=== PATIENT | female | born 1945 | race Caucasian/White ===

== ENCOUNTER → 2019-04-13 13:53 | Outpatient (CLI) | payer MEDICARE, OTHER, SELFPAY ==
--- NOTE | 2019-04-13 | DI.NM.S_ITS ---
PROCEDURE: NM TONI PERF SPECT REST & STR Rest and exercise myocardial perfusion SPECT with gated imaging and ejection fraction RADIOPHARMACEUTICAL: 24.1 mCi Tc-99m sestamibi IV at rest and 25.1 mCi Tc-99m sestamibi IV at peak exercise. A one day-protocol was performed. INDICATIONS: atypical chest pain TECHNIQUE: Radiopharmaceutical was injected at peak stress test, and also at rest. SPECT images were obtained. SPECT myocardial perfusion images were displayed in short axis, horizontal long axis, and vertical long axis views. Gated images were reviewed using [employer] software. COMPARISON: None. CARDIAC STRESS: A standard Gopi treadmill exercise tolerance test was performed by the patient under the supervision of an attending staff. The patient exercised for 4 minutes and 26 seconds; functional aerobic impairment (RODRIGO) is +20% on active scale. Hemodynamic data: There is normal blood pressure and heart rate response to exercise stress. Patient achieved 91% of maximum predicted heart rate at peak exercise. Symptoms: Patient denied chest pain during exercise. EKG: No diagnostic EKG changes of ischemia; no ectopy. FINDINGS: Raw data: There is good myocardial labeling by radiotracer. No significant motion artifacts. Mihm-pv-rhtiw ratio is 0.27 (normal is less than 0.38 for sestamibi tracer, and less than 0.50 for thallium tracer). Left ventricle function: Gated images demonstrate normal left ventricle wall thickening. No segmental wall motion abnormality. No transient ischemic dilation; TID is 0.60 (normal less than 1.3). The left ventricle resting end-diastolic volume is 87 mL. Left ventricle stress ejection fraction is 92%; normal values are above 45%. Myocardial perfusion: There is normal distribution of activity in the left and right ventricular myocardium. No fixed or reversible perfusion defects. IMPRESSION: low risk, normal treadmill nuclear stress test. 1) No perfusion evidence of ischemia or infarction. 2) Normal left ventricular size, wall motion, and systolic function (EF post stress 92%). 3) No ECG evidence of ischemia. 4) No angina during the study. 5) Moderately reduced exercise tolerance (7.0 METs, RODRIGO +20%). Target heart rate achieved. 6) No prior stress test available for comparison. Dictated by: Christoph Stanley MD on 04/16/2019 at 16:21 Approved by: Christoph Stanley MD on 04/16/2019 at 16:24
--- NOTE | 2019-04-13 14:54 | PM.TREADMILL ---
Cardiac Stress Test Report Referral & Results Date Patient Seen: 04/13/19 Requesting provider: Bethany [place] Indication: Chest discomfort Rest ECG: Unremarkable Procedure Note: Today following both written and verbal informed consent the patient was exercised according to a standard Gopi protocol patient went for a total of for minutes 26 seconds achieving a maximum heart rate of 130 for maximum systolic blood pressure of 200. This is approximately 7.0 METS. Exercise was terminated at this point because of severe dyspnea out of proportion to her level of exertion. Patient was also given Cardiolite through a previously started Hep-Lock IV by the diagnostic imaging staff approximately 1 minute prior to the cessation of exercise. Patient actually got so dyspneic that we had to slow down the treadmill during the 2nd stage for the last 40 seconds or so we actually discontinued or stop the treadmill earlier than we would usually do because of her dyspnea There are no ST-T segment changes Normal heart rate and blood pressure response to exercise Difficult to obtain oxygen saturation but appeared to be normal Impression: Severe dyspnea without evidence of cardiac ischemia Please see perfusion imaging report as well Please note: Actual ECG tracings can be found in the PACS system.
== END ==
PROVIDERS: Family Provider Physician Assistant Medical; PCP Physician Assistant Medical; Visit Provider Physician Assistant
DX: R07.89 Other chest pain (principal)
CPT/HCPCS: 78452; 93016; 93017; 93018; A9502

== ENCOUNTER → 2021-03-23 11:18 | Outpatient (CLI) | payer MEDICARE, OTHER, SELFPAY ==
[2021-03-23 14:22] LABS: COVID19 -Nasal RAPID Negative (Negative)
== END ==
PROVIDERS: Family Provider Physician Assistant Medical; PCP Physician Assistant Medical; Visit Provider Nurse Practitioner Family
DX: Z20.822 Contact with and (suspected) exposure to COVID-19 (principal); Z01.812 Encounter for preprocedural laboratory examination
CPT/HCPCS: 87635; C9803

== ENCOUNTER → 2021-03-24 10:19 | Outpatient (CLI) | payer MEDICARE, OTHER, SELFPAY ==
--- NOTE | 2021-03-25 19:45 | DI.NM.S_ITS ---
DATE OF SERVICE: 03/24/2021 PROCEDURE PERFORMED: Pharmacologic vasodilator stress and rest myocardial perfusion imaging study with gating to assess ejection fraction and regional wall motion. ORDERING PROVIDER: Dr. Abraham Esteban. INDICATIONS: The patient is a 75-year-old diabetic female with progressive exertional dyspnea and an abnormal ECG concerning for previous anteroseptal DE. PHARMACOLOGIC STRESS: Per protocol, 0.4 mg of regadenoson was infused, augmented with walking at a low-level on the treadmill. With this, she had a normal hemodynamic response. She had mild nausea and dyspnea but no chest discomfort. Her resting ECG shows sinus rhythm with poor R-wave progression but relatively normal ST-segment. With stress, there were no significant ST-segment shifts or arrhythmias. Per protocol, 25.7 millicuries of technetium-99m Myoview was injected and she was imaged 10 minutes later using a gated SPECT acquisition protocol. The following day, she returned and was reinjected with an additional 24.4 millicuries of technetium-99m Myoview and was imaged 20 minutes later, again using a gated SPECT acquisition protocol. FINDINGS: 1. Raw data: There is marginal image quality, particularly on the resting images, with moderate breast attenuation artifact that clearly traverses the anterior portion of the left ventricle. The lung/heart ratio is moderately elevated at 0.48, which can be a sign of pulmonary congestion. TID ratio is normal at 1.02. 2. Quantitated gated SPECT: The gated SPECT images are of quite poor quality, but the post-stress images suggest probable normal left ventricular systolic function with a calculated ejection fraction is 74% without any obvious focal wall motion abnormality and specifically the anterior wall grossly appears to have normal contractility, although is somewhat nonspecific because of the poor image quality. The resting images could not be adequately gated because of poor image quality. Post stress end-diastolic volume is 114 ml. 3. Myocardial perfusion imaging: Post-stress supine images show a fairly normal perfusion pattern with a mild perfusion defect in the mid anterior wall, but sparing the apex in a pattern that would be consistent with breast attenuation artifact, supported by its resolution on the prone images. The resting images show a similar perfusion pattern as to the post-stress images, although with the perfusion defect appearing to be located more medially, suggesting differential breast positioning. IMPRESSION: 1. Probable normal myocardial perfusion study. 2. Mild, predominantly fixed mid anterior defect that resolves on prone imaging. Given the raw data images and the resolution on the prone images, this most likely reflects breast attenuation artifact. While there is slight reversibility of the defect laterally, this most likely is due to differential breast positioning. There is no compelling evidence for myocardial ischemia or previous myocardial infarction. 3. Probable normal left ventricular systolic function and specifically probable normal anterior wall motion, although image quality is quite poor. 4. No angina or ECG evidence of ischemia with pharmacologic vasodilator stress. 5. Compared to the previous myocardial perfusion study of 04/13/2019, breast attenuation artifact was apparent on the previous exam as well, although is more notable on today's exam, but overall image quality is poorer on today's study. The previous ejection fraction was estimated at 92% and the lung/heart ratio was normal at 0.27, suggesting possible interval development of pulmonary congestion, but clinical correlation is recommended. Robbins Merline - Shaila/isael doc#: [id number]/job#: [id number] dd: 03/25/2021 16:59:00 dt: 03/25/2021 18:42:00 DICTATING MD/COPIES TO: Noel Maza MD; Abraham Esteban MD COPIES MNE: SUDHAKAR;
== END ==
PROVIDERS: Family Provider Physician Assistant Medical; PCP Physician Assistant Medical; Referring Provider Internal Medicine Cardiovascular Disease; Visit Provider Internal Medicine Cardiovascular Disease
DX: R06.02 Shortness of breath (principal); R06.09 Other forms of dyspnea; R94.31 Abnormal electrocardiogram [ECG] [EKG]; I12.9 Hypertensive chronic kidney disease with stage 1 through stage 4 chronic kidney disease, or unspecified chronic kidney disease; E11.22 Type 2 diabetes mellitus with diabetic chronic kidney disease; E11.21 Type 2 diabetes mellitus with diabetic nephropathy; N18.32 Chronic kidney disease, stage 3b; Z79.4 Long term (current) use of insulin
CPT/HCPCS: 78452; 93017; A9502; J2785

== ENCOUNTER 2022-04-28 15:25 | Inpatient (IN) | payer MEDICARE, OTHER, SELFPAY ==
[2022-04-28] VITALS (22 sets, daily range): BP systolic 169–215; BP diastolic 74–85; PULSE 62–72; RESP 18–45; TEMP 36.1–36.8; O2SAT 87–95; BMI 37.5
--- NOTE | 2022-04-28 15:45 | DI.RAD.S_ITS ---
PROCEDURE: XR CHEST 2V INDICATIONS: SOB TECHNIQUE: 2 views of the chest were acquired. COMPARISON: None. FINDINGS: Surgical changes and devices: None. Lungs and pleura: There is pulmonary vascular congestion. Mild pulmonary edema is also likely present. Blunting of bilateral costophrenic angles are noted suggestive of trace bilateral pleural effusion. No gross pneumothorax.. Mediastinum: Mediastinal contours are normal. Heart size is enlarged. Bones and chest wall: No suspicious bony abnormalities. Soft tissues appear unremarkable. IMPRESSION: Finding is suggestive of CHF with pulmonary vascular congestion and mild pulmonary edema. Trace bilateral pleural effusion. No definite focal infiltrate. No pneumothorax. Dictated by: Alfa Orlando M.D. on 04/28/2022 at 16:42 Approved by: Alfa Orlando M.D. on 04/28/2022 at 16:42
--- NOTE | 2022-04-28 15:45 | ED.SOB ---
HPI - SOB/Dyspnea <Chadwick Eaton, DO - Last Filed: 05/02/22 02:27> General Chief Complaint: Shortness of Breath/Dyspnea Stated Complaint: sob/tired x2 weeks Time Seen by Provider: 04/28/22 15:33 Source: patient Mode of arrival: Wheelchair History of Present Illness HPI Narrative: 76-year-old female nonsmoker with extensive medical history including diabetes, chronic kidney disease, hypertension presents at the request of her primary care provider for evaluation of a proximally 2 weeks of gradually worsening shortness of breath and fatigue. She denies any medication or dietary change. She states that she notes that she is been increasingly short of breath with exertion and has been developing some painless swelling in her bilateral lower extremities though overall she has been losing weight. She denies runny nose, sore throat or cough. She is had no fever but admits to the occasional chills. She has no nausea, vomiting or diarrhea. She denies any dysuria, frequency or urgency. She is had no recent travel, history of blood clot or known cancer Related Data Home Medications Medication Instructions Recorded Confirmed amlodipine 5 mg tablet 5 mg PO DAILY 04/28/22 04/28/22 carvedilol 12.5 mg tablet 12.5 mg PO BID 04/28/22 04/28/22 fluticasone propionate 50 50 mcg intranasal BID 04/28/22 04/28/22 mcg/actuation nasal spray,suspension hydralazine 25 mg tablet 50 mg PO TID 04/28/22 04/28/22 insulin aspart U-100 100 unit/mL See Rx Instructions .Route .COMPLEX 04/28/22 04/28/22 (3 mL) subcutaneous pen (Novolog Flexpen U-100 Insulin aspart) insulin glargine 100 50 unit SUBCUT DAILY 04/28/22 04/28/22 unit-lixisenatide 33 mcg/mL subcutaneous pen (Soliqua 100/33) levothyroxine 75 mcg tablet 75 mcg PO DAILY 04/28/22 04/28/22 losartan 25 mg tablet 25 mg PO DAILY 04/28/22 04/28/22 rosuvastatin 5 mg tablet 5 mg PO QPM 04/28/22 04/28/22 torsemide 20 mg tablet See Rx Instructions .Route .COMPLEX 04/28/22 04/28/22 Allergies Allergy/AdvReac Type Severity Reaction Status Date / Time ciprofloxacin [From Cipro] Allergy Verified 04/28/22 15:39 codeine Allergy Verified 04/28/22 15:39 metformin [From Glucophage] Allergy Verified 04/28/22 15:39 amoxicillin [From Augmentin] AdvReac Diarrhea Verified 04/28/22 15:39 clavulanic acid AdvReac Diarrhea Verified 04/28/22 15:39 [From Augmentin] Review of Systems <Chadwick Eaton DO - Last Filed: 05/02/22 02:27> Review of Systems Narrative: GENERAL: See HPI HEENT: See HPI RESPIRATORY: See HPI CARDIOVASCULAR: See HPI GASTROINTESTINAL: Denies nausea, vomiting, abdominal pain, diarrhea, constipation, melena. : Denies dysuria, frequency, incontinence, hematuria, urinary retention. MUSCULOSKELETAL: denies weakness, joint pain, or bony pain SKIN: Denies rash, skin lesions, or other NEUROLOGIC: Denies weakness, headache, numbness, change in speech, confusion, seizures, incoordination. PSYCHIATRIC: No concerning psychosocial issues. 12 point review of systems is negative except for those stated above Patient History <Chadwick Eaton DO - Last Filed: 05/02/22 02:27> Medical History CKD (chronic kidney disease) stage 4, GFR 15-29 ml/min Diabetes type 2, controlled Essential hypertension Surgical History Hx of hysterectomy Hx of tonsillectomy Family History Mother Congestive heart failure Myocardial infarct Father Congestive heart failure Cardiac arrest Social History household members: none Smoking Status: Never smoker alcohol intake: never Smoking Status: Never smoker Substance Use Type: does not use Exam <Chadwick Eaton DO - Last Filed: 05/02/22 02:27> Narrative Exam Narrative: GENERAL: [76] year old patient appears stated age. Well-developed patient, in mild distress. HEAD: Atraumatic. Normocephalic. EYES: Pupils equal round and reactive. Extraocular motions intact. No scleral icterus. No injection or drainage. ENT: Nose without bleeding, purulent drainage. Throat without erythema, tonsillar hypertrophy or exudate. Airway patent. NECK: Trachea midline. Non tender CARDIOVASCULAR: Regular rate and rhythm without murmurs, gallops, or rubs. RESPIRATORY: Faint crackles bilateral bases, no significant increased work of breathing, tachypnea, hypoxemia, wheezing or rhonchi GASTROINTESTINAL: Abdomen soft, non-tender, nondistended. EXTREMITIES: 1+ pitting edema bilateral lower extremities BACK: Nontender without deformity or crepitance. No flank tenderness. NEURO: AOx3. SKIN: No rash or erythema of visible areas Initial Vital Signs Initial Vital Signs: Vital Signs Temperature 98.2 F 04/28/22 15:39 Pulse Rate 66 04/28/22 15:39 Respiratory Rate 24 04/28/22 15:39 Blood Pressure 172/74 H 04/28/22 15:39 Pulse Oximetry 95 04/28/22 15:39 Oxygen Delivery Method 04/28/22 15:39 <Leni Alston DO - Last Filed: 04/29/22 03:21> Initial Vital Signs Initial Vital Signs: Vital Signs Temperature 98.2 F 04/28/22 15:39 Pulse Rate 66 04/28/22 15:39 Respiratory Rate 24 04/28/22 15:39 Blood Pressure 172/74 H 04/28/22 15:39 Pulse Oximetry 95 04/28/22 15:39 Oxygen Delivery Method 04/28/22 15:39 Course <Chadwick Eaton DO - Last Filed: 05/02/22 02:27> Orders Ordered: Acetaminophen (Acetaminophen 325 Mg Tablet) 650 mg PO Q6H PRN PRN Reason: Fever/Mild Pain (1-3) Aspirin (Aspirin Ec 81 Mg Tablet) 81 mg PO DAILY [facility] Last Admin: 05/01/22 08:00 Dose: 81 mg Documented By: Admin: 04/30/22 09:04 Dose: 81 mg Documented By: Admin: 04/29/22 08:17 Dose: Not Given Documented By: GINA Atorvastatin Calcium (Atorvastatin 20 Mg Tablet) 10 mg PO BEDTIME [facility] Last Admin: 05/01/22 20:12 Dose: 10 mg Documented By: Admin: 04/30/22 20:28 Dose: 10 mg Documented By: Admin: 04/29/22 21:27 Dose: 10 mg Documented By: YOBANI Carvedilol (Carvedilol 12.5 Mg Tablet) 12.5 mg PO BID [facility] Last Admin: 05/01/22 20:18 Dose: 12.5 mg Documented By: Admin: 05/01/22 08:08 Dose: 12.5 mg Documented By: Admin: 04/30/22 20:34 Dose: 12.5 mg Documented By: Admin: 04/30/22 09:04 Dose: 12.5 mg Documented By: Admin: 04/29/22 21:27 Dose: 12.5 mg Documented By: Admin: 04/29/22 08:22 Dose: 12.5 mg Documented By: Admin: 04/28/22 23:46 Dose: 12.5 mg Documented By: NILE Dextrose (Dextrose 50 % In Water 25 Gm/50 Ml Syringe) 25 gm IV PRN PRN PRN Reason: Hypoglycemia Furosemide (Furosemide 40 Mg/4 Ml Vial) 40 mg IV 0800,1700 [facility] Last Admin: 05/01/22 16:22 Dose: 40 mg Documented By: Admin: 05/01/22 08:09 Dose: 40 mg Documented By: Admin: 04/30/22 16:42 Dose: 40 mg Documented By: Admin: 04/30/22 09:05 Dose: 40 mg Documented By: Admin: 04/29/22 17:04 Dose: 40 mg Documented By: GINA Heparin Sodium (Porcine) (Heparin 5,000 Unit/Ml Vial) 5,000 unit SUBCUT BID [facility] Last Admin: 05/01/22 20:12 Dose: 5,000 unit Documented By: Admin: 05/01/22 08:09 Dose: 5,000 unit Documented By: Admin: 04/30/22 20:28 Dose: 5,000 unit Documented By: Admin: 04/30/22 09:04 Dose: 5,000 unit Documented By: Admin: 04/29/22 21:27 Dose: 5,000 unit Documented By: Admin: 04/29/22 08:23 Dose: 5,000 unit Documented By: Admin: 04/28/22 22:23 Dose: 5,000 unit Documented By: NILE Insulin Glargine (Insulin Glargine 100 Unit/Ml 3ml Pen) 50 unit SUBCUT DAILY [facility] Last Admin: 05/01/22 08:00 Dose: 45 unit Documented By: VALENTIN Co-signed By: ADAM Admin: 04/30/22 09:03 Dose: 50 unit Documented By: GINA Co-signed By: Admin: 04/29/22 08:42 Dose: 50 unit Documented By: GINA Co-signed By: Insulin Human Lispro (Insulin Lispro 100 Unit/Ml 3ml Vial) 0 unit SUBCUT ACHS [facility]; Protocol Last Admin: 05/01/22 20:22 Dose: Not Given Documented By: Admin: 05/01/22 17:16 Dose: 1 unit Documented By: VALENTIN Co-signed By: ADAM Admin: 05/01/22 11:46 Dose: Not Given Documented By: Admin: 05/01/22 08:09 Dose: Not Given Documented By: Admin: 04/30/22 20:34 Dose: Not Given Documented By: Admin: 04/30/22 16:49 Dose: Not Given Documented By: Admin: 04/30/22 12:15 Dose: Not Given Documented By: Admin: 04/30/22 08:55 Dose: Not Given Documented By: Admin: 04/29/22 21:26 Dose: Not Given Documented By: Admin: 04/29/22 17:18 Dose: 1 unit Documented By: GINA Co-signed By: Admin: 04/29/22 12:13 Dose: Not Given Documented By: Admin: 04/29/22 07:44 Dose: Not Given Documented By: GINA Levothyroxine Sodium (Levothyroxine 75 Mcg Tablet) 75 mcg PO QACBSUPRIYA [facility] Last Admin: 05/01/22 05:20 Dose: 75 mcg Documented By: Admin: 04/30/22 06:09 Dose: 75 mcg Documented By: Admin: 04/29/22 07:39 Dose: 75 mcg Documented By: GINA Losartan Potassium (Losartan 25 Mg Tablet) 25 mg PO DAILY [facility] Last Admin: 05/01/22 08:00 Dose: 25 mg Documented By: Admin: 04/30/22 09:04 Dose: 25 mg Documented By: Admin: 04/29/22 08:23 Dose: 25 mg Documented By: GINA Naloxone HCl (Naloxone 0.4 Mg/Ml Vial) 0.2 mg IV Q2MIN PRN PRN Reason: Opiate Reversal Ondansetron HCl (Ondansetron 4 Mg/2 Ml Inj) 4 mg IV Q6HR PRN PRN Reason: Nausea And Vomiting Last Admin: 05/01/22 20:12 Dose: 4 mg Documented By: Admin: 05/01/22 10:49 Dose: 4 mg Documented By: VALENTIN Sodium Chloride (Sodium Chloride 0.9% Flush) 10 ml IV PRN PRN PRN Reason: Flush Sodium Chloride (Sodium Chloride 0.9% Flush) 10 ml IV BID [facility] Last Admin: 05/01/22 20:35 Dose: 10 ml Documented By: Admin: 05/01/22 08:09 Dose: 10 ml Documented By: Admin: 04/30/22 20:34 Dose: 10 ml Documented By: Admin: 04/30/22 09:05 Dose: 10 ml Documented By: Admin: 04/29/22 21:28 Dose: 10 ml Documented By: YOBANI Vancomycin HCl (Vancomycin 125 Mg Capsule) 125 mg PO Q6H [facility] Stop: 05/09/22 10:31 Last Admin: 05/01/22 22:29 Dose: 125 mg Documented By: Admin: 05/01/22 16:23 Dose: 125 mg Documented By: Admin: 05/01/22 09:31 Dose: 125 mg Documented By: Admin: 05/01/22 05:20 Dose: 125 mg Documented By: Admin: 04/30/22 22:03 Dose: 125 mg Documented By: Admin: 04/30/22 15:46 Dose: 125 mg Documented By: Admin: 04/30/22 09:59 Dose: 125 mg Documented By: Admin: 04/30/22 04:38 Dose: 125 mg Documented By: Admin: 04/29/22 22:25 Dose: 125 mg Documented By: Admin: 04/29/22 17:03 Dose: 125 mg Documented By: GINA Discontinued Medications Albuterol/Ipratropium (Albuterol/Ipratropium 3 Ml Ampul) 3 ml INH NOW ONE Stop: 04/28/22 18:17 Last Admin: 04/28/22 18:35 Dose: 3 ml Documented By: SHOAIB Amlodipine Besylate (Amlodipine 5 Mg Tablet) 5 mg PO DAILY [facility] Last Admin: 04/29/22 08:22 Dose: 5 mg Documented By: GINA Furosemide (Furosemide 40 Mg/4 Ml Vial) 40 mg IV NOW ONE Stop: 04/28/22 18:17 Last Admin: 04/28/22 18:29 Dose: 40 mg Documented By: RONNIE Furosemide (Furosemide 40 Mg/4 Ml Vial) 40 mg IV NOW ONE Stop: 04/29/22 13:00 Last Admin: 04/29/22 13:18 Dose: 40 mg Documented By: GINA Vital Signs Vital signs: Vital Signs - 8 hr 04/28/22 19:56 04/28/22 19:30 04/28/22 19:30 Pulse Rate 70 65 Respiratory Rate 28 H 32 H Blood Pressure 215/83 H Pulse Oximetry 87 L 92 Oxygen Delivery Method 04/28/22 19:39 04/28/22 19:39 04/28/22 20:00 Pulse Rate 65 65 Respiratory Rate 28 H 18 Blood Pressure 196/79 H Pulse Oximetry 94 95 Oxygen Delivery Method 04/28/22 20:02 04/28/22 20:02 04/28/22 20:30 Pulse Rate 65 72 Respiratory Rate 23 36 H Blood Pressure 177/80 H Pulse Oximetry 95 88 L Oxygen Delivery Method Room Air 04/28/22 20:31 04/28/22 20:31 Pulse Rate 67 Respiratory Rate 31 H Blood Pressure 175/80 H Pulse Oximetry 90 L Oxygen Delivery Method <Leni Alston, - Last Filed: 04/29/22 03:21> Orders Ordered: Acetaminophen (Acetaminophen 325 Mg Tablet) 650 mg PO Q6H PRN PRN Reason: Fever/Mild Pain (1-3) Aspirin (Aspirin Ec 81 Mg Tablet) 81 mg PO DAILY [facility] Last Admin: 05/01/22 08:00 Dose: 81 mg Documented By: Admin: 04/30/22 09:04 Dose: 81 mg Documented By: Admin: 04/29/22 08:17 Dose: Not Given Documented By: GINA Atorvastatin Calcium (Atorvastatin 20 Mg Tablet) 10 mg PO BEDTIME [facility] Last Admin: 05/01/22 20:12 Dose: 10 mg Documented By: Admin: 04/30/22 20:28 Dose: 10 mg Documented By: Admin: 04/29/22 21:27 Dose: 10 mg Documented By: YOBANI Carvedilol (Carvedilol 12.5 Mg Tablet) 12.5 mg PO BID [facility] Last Admin: 05/01/22 20:18 Dose: 12.5 mg Documented By: Admin: 05/01/22 08:08 Dose: 12.5 mg Documented By: Admin: 04/30/22 20:34 Dose: 12.5 mg Documented By: Admin: 04/30/22 09:04 Dose: 12.5 mg Documented By: Admin: 04/29/22 21:27 Dose: 12.5 mg Documented By: Admin: 04/29/22 08:22 Dose: 12.5 mg Documented By: Admin: 04/28/22 23:46 Dose: 12.5 mg Documented By: NILE Dextrose (Dextrose 50 % In Water 25 Gm/50 Ml Syringe) 25 gm IV PRN PRN PRN Reason: Hypoglycemia Furosemide (Furosemide 40 Mg/4 Ml Vial) 40 mg IV 0800,1700 [facility] Last Admin: 05/01/22 16:22 Dose: 40 mg Documented By: Admin: 05/01/22 08:09 Dose: 40 mg Documented By: Admin: 04/30/22 16:42 Dose: 40 mg Documented By: Admin: 04/30/22 09:05 Dose: 40 mg Documented By: Admin: 04/29/22 17:04 Dose: 40 mg Documented By: GINA Heparin Sodium (Porcine) (Heparin 5,000 Unit/Ml Vial) 5,000 unit SUBCUT BID [facility] Last Admin: 05/01/22 20:12 Dose: 5,000 unit Documented By: Admin: 05/01/22 08:09 Dose: 5,000 unit Documented By: Admin: 04/30/22 20:28 Dose: 5,000 unit Documented By: Admin: 04/30/22 09:04 Dose: 5,000 unit Documented By: Admin: 04/29/22 21:27 Dose: 5,000 unit Documented By: Admin: 04/29/22 08:23 Dose: 5,000 unit Documented By: Admin: 04/28/22 22:23 Dose: 5,000 unit Documented By: NILE Insulin Glargine (Insulin Glargine 100 Unit/Ml 3ml Pen) 50 unit SUBCUT DAILY [facility] Last Admin: 05/01/22 08:00 Dose: 45 unit Documented By: VALENTIN Co-signed By: ADAM Admin: 04/30/22 09:03 Dose: 50 unit Documented By: GINA Co-signed By: Admin: 04/29/22 08:42 Dose: 50 unit Documented By: GINA Co-signed By: Insulin Human Lispro (Insulin Lispro 100 Unit/Ml 3ml Vial) 0 unit SUBCUT [facility]; Protocol Last Admin: 05/01/22 20:22 Dose: Not Given Documented By: Admin: 05/01/22 17:16 Dose: 1 unit Documented By: VALENTIN Co-signed By: ADAM Admin: 05/01/22 11:46 Dose: Not Given Documented By: Admin: 05/01/22 08:09 Dose: Not Given Documented By: Admin: 04/30/22 20:34 Dose: Not Given Documented By: Admin: 04/30/22 16:49 Dose: Not Given Documented By: Admin: 04/30/22 12:15 Dose: Not Given Documented By: Admin: 04/30/22 08:55 Dose: Not Given Documented By: Admin: 04/29/22 21:26 Dose: Not Given Documented By: Admin: 04/29/22 17:18 Dose: 1 unit Documented By: GINA Co-signed By: Admin: 04/29/22 12:13 Dose: Not Given Documented By: Admin: 04/29/22 07:44 Dose: Not Given Documented By: GINA Levothyroxine Sodium (Levothy[facility]ine 75 Mcg Tablet) [facility] Last Admin: 05/01/22 05:20 Dose: 75 mcg Documented By: Admin: 04/30/22 06:09 Dose: 75 mcg Documented By: Admin: 04/29/22 07:39 Dose: 75 mcg Documented By: GINA Losartan Potassium (Losartan 25 Mg Tablet) 25 mg PO DAILY [facility] Last Admin: 05/01/22 08:00 Dose: 25 mg Documented By: Admin: 04/30/22 09:04 Dose: 25 mg Documented By: Admin: 04/29/22 08:23 Dose: 25 mg Documented By: GINA Naloxone HCl (Naloxone 0.4 Mg/Ml Vial) 0.2 mg IV Q2MIN PRN PRN Reason: Opiate Reversal Ondansetron HCl (Ondansetron 4 Mg/2 Ml Inj) 4 mg IV Q6HR PRN PRN Reason: Nausea And Vomiting Last Admin: 05/01/22 20:12 Dose: 4 mg Documented By: Admin: 05/01/22 10:49 Dose: 4 mg Documented By: VALENTIN Sodium Chloride (Sodium Chloride 0.9% Flush) 10 ml IV PRN PRN PRN Reason: Flush Sodium Chloride (Sodium Chloride 0.9% Flush) 10 ml IV BID [facility] Last Admin: 05/01/22 20:35 Dose: 10 ml Documented By: Admin: 05/01/22 08:09 Dose: 10 ml Documented By: Admin: 04/30/22 20:34 Dose: 10 ml Documented By: Admin: 04/30/22 09:05 Dose: 10 ml Documented By: Admin: 04/29/22 21:28 Dose: 10 ml Documented By: YOBANI Vancomycin HCl (Vancomycin 125 Mg Capsule) 125 mg PO Q6H [facility] Stop: 05/09/22 10:31 Last Admin: 05/01/22 22:29 Dose: 125 mg Documented By: Admin: 05/01/22 16:23 Dose: 125 mg Documented By: Admin: 05/01/22 09:31 Dose: 125 mg Documented By: Admin: 05/01/22 05:20 Dose: 125 mg Documented By: Admin: 04/30/22 22:03 Dose: 125 mg Documented By: Admin: 04/30/22 15:46 Dose: 125 mg Documented By: Admin: 04/30/22 09:59 Dose: 125 mg Documented By: Admin: 04/30/22 04:38 Dose: 125 mg Documented By: Admin: 04/29/22 22:25 Dose: 125 mg Documented By: Admin: 04/29/22 17:03 Dose: 125 mg Documented By: GINA Discontinued Medications Albuterol/Ipratropium (Albuterol/Ipratropium 3 Ml Ampul) 3 ml INH NOW ONE Stop: 04/28/22 18:17 Last Admin: 04/28/22 18:35 Dose: 3 ml Documented By: SHOAIB Amlodipine Besylate (Amlodipine 5 Mg Tablet) 5 mg PO DAILY [facility] Last Admin: 04/29/22 08:22 Dose: 5 mg Documented By: GINA Furosemide (Furosemide 40 Mg/4 Ml Vial) 40 mg IV NOW ONE Stop: 04/28/22 18:17 Last Admin: 04/28/22 18:29 Dose: 40 mg Documented By: RONNIE Furosemide (Furosemide 40 Mg/4 Ml Vial) 40 mg IV NOW ONE Stop: 04/29/22 13:00 Last Admin: 04/29/22 13:18 Dose: 40 mg Documented By: GINA Vital Signs Vital signs: Vital Signs - 8 hr 04/28/22 19:56 04/28/22 19:30 04/28/22 19:30 Pulse Rate 70 65 Respiratory Rate 28 H 32 H Blood Pressure 215/83 H Pulse Oximetry 87 L 92 Oxygen Delivery Method 04/28/22 19:39 04/28/22 19:39 04/28/22 20:00 Pulse Rate 65 65 Respiratory Rate 28 H 18 Blood Pressure 196/79 H Pulse Oximetry 94 95 Oxygen Delivery Method 04/28/22 20:02 04/28/22 20:02 04/28/22 20:30 Pulse Rate 65 72 Respiratory Rate 23 36 H Blood Pressure 177/80 H Pulse Oximetry 95 88 L Oxygen Delivery Method Room Air 04/28/22 20:31 04/28/22 20:31 Pulse Rate 67 Respiratory Rate 31 H Blood Pressure 175/80 H Pulse Oximetry 90 L Oxygen Delivery Method MDM - SOB/Dyspnea <Chadwick Eaton, - Last Filed: 05/02/22 02:27> Lab Data Result diagrams: 05/01/22 06:52 05/01/22 06:52 Labs: Lab Results 04/28/22 04/28/22 04/28/22 Range/Units 15:43 16:12 16:12 WBC 11.0 (4.5-11.0) X10^3/uL RBC 3.50 L (4.0-5.2) X10^6/uL Hgb 9.9 L (12.0-16.0) g/dL Hct 30.4 L (36-46) % MCV 86.8 (80-100) fL MCH 28.2 (26-34) PG MCHC 32.5 (30-36) % RDW 15.0 H (11.6-14.8) % Plt Count 249 (150-400) X10^3/uL Neut % (Auto) 73.8 (50-75) % Lymph % (Auto) 14.2 L (25-40) % Wells % (Auto) 7.7 (3-14) % Eos % (Auto) 3.7 (2-4) % Baso % (Auto) 0.6 (0-2) % Neut # (Auto) 8100 H (5475-0781) /uL Lymph # (Auto) 1600 (5248-2854) /uL Wells # (Auto) 800 (0-900) /uL Eos # (Auto) 400 (0-450) /uL Baso # (Auto) 100 (0-100) /uL PT (10.1-12.7) SECONDS INR (0.9-1.3) APTT (26-36) SECONDS D-Dimer (<500) ng/ml Sodium 141 (137-145) mmol/L Potassium 4.7 (3.4-5.1) mmol/L Chloride 108 H (98-107) mmol/L Carbon Dioxide 19 L (22-32) mmol/L BUN 68 H (7-17) mg/dL Creatinine 2.58 H (0.52-1.04) mg/dL Estimated GFR 19 L (>60) mL/min BUN/Creatinine Ratio 26.4 H (6-22) Glucose 127 H (80-110) mg/dL Hemoglobin A1c (4.0-6.0) % Lactate (0.7-2.1) mmol/L Calcium 8.7 (8.4-10.2) mg/dL Magnesium 1.7 (1.6-2.3) mg/dL Total Bilirubin 0.2 (0.2-1.3) mg/dL AST 19 (14-36) IU/L ALT 16 (<35) IU/L Alkaline Phosphatase 88 (38-126) U/L Total Creatine Kinase (30-135) U/L CK-MB (CK-2) CK-MB (CK-2) Rel Index Troponin I (0.01-0.034) ng/mL C-Reactive Protein < 0.5 (<1.0) mg/dL NT-Pro-B Natriuret Pep 1790 H (<450) pg/mL Total Protein 6.4 (6.3-8.2) g/dL Albumin 3.6 (3.5-5.0) g/dL Globulin 2.8 (1.7-4.1) g/dL Albumin/Globulin Ratio 1.3 (1.0-2.8) TSH (0.47-4.68) uIU/mL Urine RBC (0-5/HPF) Urine WBC (0-5/HPF) Ur Squamous Epith Cells (0-5/HPF) Urine Bacteria (None) Ur Culture Indicated? A. baumannii (PCR) (Not Detect) Catie albicans (PCR) (Not Detect) C. glabrata (PCR) (Not Detect) C. krusei (PCR) (Not Detect) C. parapsilosis (PCR) (Not Detect) C. tropicalis (PCR) (Not Detect) SARS-CoV-2 (PCR) Negative (Negative) Enterobacteriac sp PCR (Not Detect) E. cloacae complex PCR (Not Detect) Enterococcus sp PCR (Not Detect) E. coli (PCR) (Not Detect) H. influenzae (PCR) (Not Detect) Influenza A (RT-PCR) Flu a negative (NEGATIVE) Influenza B (RT-PCR) Flu b negative (NEGATIVE) Klebsiella oxytoca PCR (Not Detect) Klebsiella pneumoniae (Not Detect) List. monocytogenes PCR (Not Detect) N. meningitidis (PCR) (Not Detect) Proteus species (PCR) (Not Detect) RSV (PCR) Negative (Negative) Serratia marcescens PCR (Not Detect) Staphylococcus sp PCR (Not Detect) Staph aureus (PCR) (Not Detect) mecA-Methicil Res Gene (Not Detect) Streptococcus sp PCR (Not Detect) Group A Strep (PCR) (Not Detect) Strep agalactiae (PCR) (Not Detect) Strep pneumoniae (PCR) (Not Detect) P. aeruginosa (PCR) (Not Detect) Soniya/B-Vanco Res Genes KPC-Carbap Res Gene PCR 04/28/22 04/28/22 04/28/22 Range/Units 16:12 16:12 16:12 WBC (4.5-11.0) X10^3/uL RBC (4.0-5.2) X10^6/uL Hgb (12.0-16.0) g/dL Hct (36-46) % MCV (80-100) fL MCH (26-34) PG MCHC (30-36) % RDW (11.6-14.8) % Plt Count (150-400) X10^3/uL Neut % (Auto) (50-75) % Lymph % (Auto) (25-40) % Wells % (Auto) (3-14) % Eos % (Auto) (2-4) % Baso % (Auto) (0-2) % Neut # (Auto) (7574-4259) /uL Lymph # (Auto) (3639-3184) /uL Wells # (Auto) (0-900) /uL Eos # (Auto) (0-450) /uL Baso # (Auto) (0-100) /uL PT 12.3 (10.1-12.7) SECONDS INR 1.1 (0.9-1.3) APTT 28 (26-36) SECONDS D-Dimer (<500) ng/ml Sodium (137-145) mmol/L Potassium (3.4-5.1) mmol/L Chloride (98-107) mmol/L Carbon Dioxide (22-32) mmol/L BUN (7-17) mg/dL Creatinine (0.52-1.04) mg/dL Estimated GFR (>60) mL/min BUN/Creatinine Ratio (6-22) Glucose (80-110) mg/dL Hemoglobin A1c (4.0-6.0) % Lactate 0.6 L (0.7-2.1) mmol/L Calcium (8.4-10.2) mg/dL Magnesium (1.6-2.3) mg/dL Total Bilirubin (0.2-1.3) mg/dL AST (14-36) IU/L ALT (<35) IU/L Alkaline Phosphatase (38-126) U/L Total Creatine Kinase 59 (30-135) U/L CK-MB (CK-2) TNP CK-MB (CK-2) Rel Index TNP Troponin I < 0.012 (0.01-0.034) ng/mL C-Reactive Protein (<1.0) mg/dL NT-Pro-B Natriuret Pep (<450) pg/mL Total Protein (6.3-8.2) g/dL Albumin (3.5-5.0) g/dL Globulin (1.7-4.1) g/dL Albumin/Globulin Ratio (1.0-2.8) TSH (0.47-4.68) uIU/mL Urine RBC (0-5/HPF) Urine WBC (0-5/HPF) Ur Squamous Epith Cells (0-5/HPF) Urine Bacteria (None) Ur Culture Indicated? A. baumannii (PCR) (Not Detect) Catie albicans (PCR) (Not Detect) C. glabrata (PCR) (Not Detect) C. krusei (PCR) (Not Detect) C. parapsilosis (PCR) (Not Detect) C. tropicalis (PCR) (Not Detect) SARS-CoV-2 (PCR) (Negative) Enterobacteriac sp PCR (Not Detect) E. cloacae complex PCR (Not Detect) Enterococcus sp PCR (Not Detect) E. coli (PCR) (Not Detect) H. influenzae (PCR) (Not Detect) Influenza A (RT-PCR) (NEGATIVE) Influenza B (RT-PCR) (NEGATIVE) Klebsiella oxytoca PCR (Not Detect) Klebsiella pneumoniae (Not Detect) List. monocytogenes PCR (Not Detect) N. meningitidis (PCR) (Not Detect) Proteus species (PCR) (Not Detect) RSV (PCR) (Negative) Serratia marcescens PCR (Not Detect) Staphylococcus sp PCR (Not Detect) Staph aureus (PCR) (Not Detect) mecA-Methicil Res Gene (Not Detect) Streptococcus sp PCR (Not Detect) Group A Strep (PCR) (Not Detect) Strep agalactiae (PCR) (Not Detect) Strep pneumoniae (PCR) (Not Detect) P. aeruginosa (PCR) (Not Detect) Soniya/B-Vanco Res Genes KPC-Carbap Res Gene PCR 04/28/22 04/28/22 04/28/22 Range/Units 16:12 16:12 16:12 WBC (4.5-11.0) X10^3/uL RBC (4.0-5.2) X10^6/uL Hgb (12.0-16.0) g/dL Hct (36-46) % MCV (80-100) fL MCH (26-34) PG MCHC (30-36) % RDW (11.6-14.8) % Plt Count (150-400) X10^3/uL Neut % (Auto) (50-75) % Lymph % (Auto) (25-40) % Wells % (Auto) (3-14) % Eos % (Auto) (2-4) % Baso % (Auto) (0-2) % Neut # (Auto) (6261-2282) /uL Lymph # (Auto) (2058-0012) /uL Wells # (Auto) (0-900) /uL Eos # (Auto) (0-450) /uL Baso # (Auto) (0-100) /uL PT (10.1-12.7) SECONDS INR (0.9-1.3) APTT (26-36) SECONDS D-Dimer 874 H (<500) ng/ml Sodium (137-145) mmol/L Potassium (3.4-5.1) mmol/L Chloride (98-107) mmol/L Carbon Dioxide (22-32) mmol/L BUN (7-17) mg/dL Creatinine (0.52-1.04) mg/dL Estimated GFR (>60) mL/min BUN/Creatinine Ratio (6-22) Glucose (80-110) mg/dL Hemoglobin A1c 6.0 (4.0-6.0) % Lactate (0.7-2.1) mmol/L Calcium (8.4-10.2) mg/dL Magnesium (1.6-2.3) mg/dL Total Bilirubin (0.2-1.3) mg/dL AST (14-36) IU/L ALT (<35) IU/L Alkaline Phosphatase (38-126) U/L Total Creatine Kinase (30-135) U/L CK-MB (CK-2) CK-MB (CK-2) Rel Index Troponin I (0.01-0.034) ng/mL C-Reactive Protein (<1.0) mg/dL NT-Pro-B Natriuret Pep (<450) pg/mL Total Protein (6.3-8.2) g/dL Albumin (3.5-5.0) g/dL Globulin (1.7-4.1) g/dL Albumin/Globulin Ratio (1.0-2.8) TSH 3.01 (0.47-4.68) uIU/mL Urine RBC (0-5/HPF) Urine WBC (0-5/HPF) Ur Squamous Epith Cells (0-5/HPF) Urine Bacteria (None) Ur Culture Indicated? A. baumannii (PCR) (Not Detect) Catie albicans (PCR) (Not Detect) C. glabrata (PCR) (Not Detect) C. krusei (PCR) (Not Detect) C. parapsilosis (PCR) (Not Detect) C. tropicalis (PCR) (Not Detect) SARS-CoV-2 (PCR) (Negative) Enterobacteriac sp PCR (Not Detect) E. cloacae complex PCR (Not Detect) Enterococcus sp PCR (Not Detect) E. coli (PCR) (Not Detect) H. influenzae (PCR) (Not Detect) Influenza A (RT-PCR) (NEGATIVE) Influenza B (RT-PCR) (NEGATIVE) Klebsiella oxytoca PCR (Not Detect) Klebsiella pneumoniae (Not Detect) List. monocytogenes PCR (Not Detect) N. meningitidis (PCR) (Not Detect) Proteus species (PCR) (Not Detect) RSV (PCR) (Negative) Serratia marcescens PCR (Not Detect) Staphylococcus sp PCR (Not Detect) Staph aureus (PCR) (Not Detect) mecA-Methicil Res Gene (Not Detect) Streptococcus sp PCR (Not Detect) Group A Strep (PCR) (Not Detect) Strep agalactiae (PCR) (Not Detect) Strep pneumoniae (PCR) (Not Detect) P. aeruginosa (PCR) (Not Detect) Soniya/B-Vanco Res Genes KPC-Carbap Res Gene PCR 04/28/22 04/28/22 04/28/22 Range/Units 16:12 19:10 20:01 WBC (4.5-11.0) X10^3/uL RBC (4.0-5.2) X10^6/uL Hgb (12.0-16.0) g/dL Hct (36-46) % MCV (80-100) fL MCH (26-34) PG MCHC (30-36) % RDW (11.6-14.8) % Plt Count (150-400) X10^3/uL Neut % (Auto) (50-75) % Lymph % (Auto) (25-40) % Wells % (Auto) (3-14) % Eos % (Auto) (2-4) % Baso % (Auto) (0-2) % Neut # (Auto) (2018-6113) /uL Lymph # (Auto) (4226-0104) /uL Wells # (Auto) (0-900) /uL Eos # (Auto) (0-450) /uL Baso # (Auto) (0-100) /uL PT (10.1-12.7) SECONDS INR (0.9-1.3) APTT (26-36) SECONDS D-Dimer (<500) ng/ml Sodium 142 (137-145) mmol/L Potassium 4.3 (3.4-5.1) mmol/L Chloride 107 (98-107) mmol/L Carbon Dioxide 23 (22-32) mmol/L BUN 67 H (7-17) mg/dL Creatinine 2.67 H (0.52-1.04) mg/dL Estimated GFR 18 L (>60) mL/min BUN/Creatinine Ratio 25.1 H (6-22) Glucose 104 (80-110) mg/dL Hemoglobin A1c (4.0-6.0) % Lactate (0.7-2.1) mmol/L Calcium 8.9 (8.4-10.2) mg/dL Magnesium (1.6-2.3) mg/dL Total Bilirubin (0.2-1.3) mg/dL AST (14-36) IU/L ALT (<35) IU/L Alkaline Phosphatase (38-126) U/L Total Creatine Kinase (30-135) U/L CK-MB (CK-2) CK-MB (CK-2) Rel Index Troponin I 0.014 (0.01-0.034) ng/mL C-Reactive Protein (<1.0) mg/dL NT-Pro-B Natriuret Pep (<450) pg/mL Total Protein (6.3-8.2) g/dL Albumin (3.5-5.0) g/dL Globulin (1.7-4.1) g/dL Albumin/Globulin Ratio (1.0-2.8) TSH (0.47-4.68) uIU/mL Urine RBC 0-1/hpf (0-5/HPF) Urine WBC 5-10/hpf H (0-5/HPF) Ur Squamous Epith Cells 5-10 /hpf H (0-5/HPF) Urine Bacteria Moderate (10-30) H (None) Ur Culture Indicated? Specimen cultured A. baumannii (PCR) Not detected (Not Detect) Catie albicans (PCR) Not detected (Not Detect) C. glabrata (PCR) Not detected (Not Detect) C. krusei (PCR) Not detected (Not Detect) C. parapsilosis (PCR) Not detected (Not Detect) C. tropicalis (PCR) Not detected (Not Detect) SARS-CoV-2 (PCR) (Negative) Enterobacteriac sp PCR Not detected (Not Detect) E. cloacae complex PCR Not detected (Not Detect) Enterococcus sp PCR Not detected (Not Detect) E. coli (PCR) Not detected (Not Detect) H. influenzae (PCR) Not detected (Not Detect) Influenza A (RT-PCR) (NEGATIVE) Influenza B (RT-PCR) (NEGATIVE) Klebsiella oxytoca PCR Not detected (Not Detect) Klebsiella pneumoniae Not detected (Not Detect) List. monocytogenes PCR Not detected (Not Detect) N. meningitidis (PCR) Not detected (Not Detect) Proteus species (PCR) Not detected (Not Detect) RSV (PCR) (Negative) Serratia marcescens PCR Not detected (Not Detect) Staphylococcus sp PCR Detected H (Not Detect) Staph aureus (PCR) Not detected (Not Detect) mecA-Methicil Res Gene Not detected (Not Detect) Streptococcus sp PCR Not detected (Not Detect) Group A Strep (PCR) Not detected (Not Detect) Strep agalactiae (PCR) Not detected (Not Detect) Strep pneumoniae (PCR) Not detected (Not Detect) P. aeruginosa (PCR) Not detected (Not Detect) Soniya/B-Vanco Res Genes Not Reportable KPC-Carbap Res Gene PCR Not Reportable Urine Dip Bedside Urine Glucose Negative Bedside Urine Bilirubin - Negative Bedside Urine Ketone - Negative Urine Specific Volcano 1.020 Bedside Urine Occult Blood - Negative Bedside Urine pH 6.0 Bedside Urine Protein ++ 100 Bedside Urine Urobilinogen - Negative Bedside Urine Nitrite - Negative Bedside Urine Leukocytes - Negative Esterase <Leni Alston, - Last Filed: 04/29/22 03:21> Lab Data Labs: Lab Results 04/28/22 04/28/22 04/28/22 Range/Units 15:43 16:12 16:12 WBC 11.0 (4.5-11.0) X10^3/uL RBC 3.50 L (4.0-5.2) X10^6/uL Hgb 9.9 L (12.0-16.0) g/dL Hct 30.4 L (36-46) % MCV 86.8 (80-100) fL MCH 28.2 (26-34) PG MCHC 32.5 (30-36) % RDW 15.0 H (11.6-14.8) % Plt Count 249 (150-400) X10^3/uL Neut % (Auto) 73.8 (50-75) % Lymph % (Auto) 14.2 L (25-40) % Wells % (Auto) 7.7 (3-14) % Eos % (Auto) 3.7 (2-4) % Baso % (Auto) 0.6 (0-2) % Neut # (Auto) 8100 H (9956-5875) /uL Lymph # (Auto) 1600 (1564-7225) /uL Wells # (Auto) 800 (0-900) /uL Eos # (Auto) 400 (0-450) /uL Baso # (Auto) 100 (0-100) /uL PT (10.1-12.7) SECONDS INR (0.9-1.3) APTT (26-36) SECONDS D-Dimer (<500) ng/ml Sodium 141 (137-145) mmol/L Potassium 4.7 (3.4-5.1) mmol/L Chloride 108 H (98-107) mmol/L Carbon Dioxide 19 L (22-32) mmol/L BUN 68 H (7-17) mg/dL Creatinine 2.58 H (0.52-1.04) mg/dL Estimated GFR 19 L (>60) mL/min BUN/Creatinine Ratio 26.4 H (6-22) Glucose 127 H (80-110) mg/dL Hemoglobin A1c (4.0-6.0) % Lactate (0.7-2.1) mmol/L Calcium 8.7 (8.4-10.2) mg/dL Magnesium 1.7 (1.6-2.3) mg/dL Total Bilirubin 0.2 (0.2-1.3) mg/dL AST 19 (14-36) IU/L ALT 16 (<35) IU/L Alkaline Phosphatase 88 (38-126) U/L Total Creatine Kinase (30-135) U/L CK-MB (CK-2) CK-MB (CK-2) Rel Index Troponin I (0.01-0.034) ng/mL C-Reactive Protein < 0.5 (<1.0) mg/dL NT-Pro-B Natriuret Pep 1790 H (<450) pg/mL Total Protein 6.4 (6.3-8.2) g/dL Albumin 3.6 (3.5-5.0) g/dL Globulin 2.8 (1.7-4.1) g/dL Albumin/Globulin Ratio 1.3 (1.0-2.8) TSH (0.47-4.68) uIU/mL Urine RBC (0-5/HPF) Urine WBC (0-5/HPF) Ur Squamous Epith Cells (0-5/HPF) Urine Bacteria (None) Ur Culture Indicated? A. baumannii (PCR) (Not Detect) Catie albicans (PCR) (Not Detect) C. glabrata (PCR) (Not Detect) C. krusei (PCR) (Not Detect) C. parapsilosis (PCR) (Not Detect) C. tropicalis (PCR) (Not Detect) SARS-CoV-2 (PCR) Negative (Negative) Enterobacteriac sp PCR (Not Detect) E. cloacae complex PCR (Not Detect) Enterococcus sp PCR (Not Detect) E. coli (PCR) (Not Detect) H. influenzae (PCR) (Not Detect) Influenza A (RT-PCR) Flu a negative (NEGATIVE) Influenza B (RT-PCR) Flu b negative (NEGATIVE) Klebsiella oxytoca PCR (Not Detect) Klebsiella pneumoniae (Not Detect) List. monocytogenes PCR (Not Detect) N. meningitidis (PCR) (Not Detect) Proteus species (PCR) (Not Detect) RSV (PCR) Negative (Negative) Serratia marcescens PCR (Not Detect) Staphylococcus sp PCR (Not Detect) Staph aureus (PCR) (Not Detect) mecA-Methicil Res Gene (Not Detect) Streptococcus sp PCR (Not Detect) Group A Strep (PCR) (Not Detect) Strep agalactiae (PCR) (Not Detect) Strep pneumoniae (PCR) (Not Detect) P. aeruginosa (PCR) (Not Detect) Soniya/B-Vanco Res Genes KPC-Carbap Res Gene PCR 04/28/22 04/28/22 04/28/22 Range/Units 16:12 16:12 16:12 WBC (4.5-11.0) X10^3/uL RBC (4.0-5.2) X10^6/uL Hgb (12.0-16.0) g/dL Hct (36-46) % MCV (80-100) fL MCH (26-34) PG MCHC (30-36) % RDW (11.6-14.8) % Plt Count (150-400) X10^3/uL Neut % (Auto) (50-75) % Lymph % (Auto) (25-40) % Wells % (Auto) (3-14) % Eos % (Auto) (2-4) % Baso % (Auto) (0-2) % Neut # (Auto) (5794-1067) /uL Lymph # (Auto) (6471-0162) /uL Wells # (Auto) (0-900) /uL Eos # (Auto) (0-450) /uL Baso # (Auto) (0-100) /uL PT 12.3 (10.1-12.7) SECONDS INR 1.1 (0.9-1.3) APTT 28 (26-36) SECONDS D-Dimer (<500) ng/ml Sodium (137-145) mmol/L Potassium (3.4-5.1) mmol/L Chloride (98-107) mmol/L Carbon Dioxide (22-32) mmol/L BUN (7-17) mg/dL Creatinine (0.52-1.04) mg/dL Estimated GFR (>60) mL/min BUN/Creatinine Ratio (6-22) Glucose (80-110) mg/dL Hemoglobin A1c (4.0-6.0) % Lactate 0.6 L (0.7-2.1) mmol/L Calcium (8.4-10.2) mg/dL Magnesium (1.6-2.3) mg/dL Total Bilirubin (0.2-1.3) mg/dL AST (14-36) IU/L ALT (<35) IU/L Alkaline Phosphatase (38-126) U/L Total Creatine Kinase 59 (30-135) U/L CK-MB (CK-2) TNP CK-MB (CK-2) Rel Index TNP Troponin I < 0.012 (0.01-0.034) ng/mL C-Reactive Protein (<1.0) mg/dL NT-Pro-B Natriuret Pep (<450) pg/mL Total Protein (6.3-8.2) g/dL Albumin (3.5-5.0) g/dL Globulin (1.7-4.1) g/dL Albumin/Globulin Ratio (1.0-2.8) TSH (0.47-4.68) uIU/mL Urine RBC (0-5/HPF) Urine WBC (0-5/HPF) Ur Squamous Epith Cells (0-5/HPF) Urine Bacteria (None) Ur Culture Indicated? A. baumannii (PCR) (Not Detect) Catie albicans (PCR) (Not Detect) C. glabrata (PCR) (Not Detect) C. krusei (PCR) (Not Detect) C. parapsilosis (PCR) (Not Detect) C. tropicalis (PCR) (Not Detect) SARS-CoV-2 (PCR) (Negative) Enterobacteriac sp PCR (Not Detect) E. cloacae complex PCR (Not Detect) Enterococcus sp PCR (Not Detect) E. coli (PCR) (Not Detect) H. influenzae (PCR) (Not Detect) Influenza A (RT-PCR) (NEGATIVE) Influenza B (RT-PCR) (NEGATIVE) Klebsiella oxytoca PCR (Not Detect) Klebsiella pneumoniae (Not Detect) List. monocytogenes PCR (Not Detect) N. meningitidis (PCR) (Not Detect) Proteus species (PCR) (Not Detect) RSV (PCR) (Negative) Serratia marcescens PCR (Not Detect) Staphylococcus sp PCR (Not Detect) Staph aureus (PCR) (Not Detect) mecA-Methicil Res Gene (Not Detect) Streptococcus sp PCR (Not Detect) Group A Strep (PCR) (Not Detect) Strep agalactiae (PCR) (Not Detect) Strep pneumoniae (PCR) (Not Detect) P. aeruginosa (PCR) (Not Detect) Soniya/B-Vanco Res Genes KPC-Carbap Res Gene PCR 04/28/22 04/28/22 04/28/22 Range/Units 16:12 16:12 16:12 WBC (4.5-11.0) X10^3/uL RBC (4.0-5.2) X10^6/uL Hgb (12.0-16.0) g/dL Hct (36-46) % MCV (80-100) fL MCH (26-34) PG MCHC (30-36) % RDW (11.6-14.8) % Plt Count (150-400) X10^3/uL Neut % (Auto) (50-75) % Lymph % (Auto) (25-40) % Wells % (Auto) (3-14) % Eos % (Auto) (2-4) % Baso % (Auto) (0-2) % Neut # (Auto) (3423-1649) /uL Lymph # (Auto) (4174-4544) /uL Wells # (Auto) (0-900) /uL Eos # (Auto) (0-450) /uL Baso # (Auto) (0-100) /uL PT (10.1-12.7) SECONDS INR (0.9-1.3) APTT (26-36) SECONDS D-Dimer 874 H (<500) ng/ml Sodium (137-145) mmol/L Potassium (3.4-5.1) mmol/L Chloride (98-107) mmol/L Carbon Dioxide (22-32) mmol/L BUN (7-17) mg/dL Creatinine (0.52-1.04) mg/dL Estimated GFR (>60) mL/min BUN/Creatinine Ratio (6-22) Glucose (80-110) mg/dL Hemoglobin A1c 6.0 (4.0-6.0) % Lactate (0.7-2.1) mmol/L Calcium (8.4-10.2) mg/dL Magnesium (1.6-2.3) mg/dL Total Bilirubin (0.2-1.3) mg/dL AST (14-36) IU/L ALT (<35) IU/L Alkaline Phosphatase (38-126) U/L Total Creatine Kinase (30-135) U/L CK-MB (CK-2) CK-MB (CK-2) Rel Index Troponin I (0.01-0.034) ng/mL C-Reactive Protein (<1.0) mg/dL NT-Pro-B Natriuret Pep (<450) pg/mL Total Protein (6.3-8.2) g/dL Albumin (3.5-5.0) g/dL Globulin (1.7-4.1) g/dL Albumin/Globulin Ratio (1.0-2.8) TSH 3.01 (0.47-4.68) uIU/mL Urine RBC (0-5/HPF) Urine WBC (0-5/HPF) Ur Squamous Epith Cells (0-5/HPF) Urine Bacteria (None) Ur Culture Indicated? A. baumannii (PCR) (Not Detect) Catie albicans (PCR) (Not Detect) C. glabrata (PCR) (Not Detect) C. krusei (PCR) (Not Detect) C. parapsilosis (PCR) (Not Detect) C. tropicalis (PCR) (Not Detect) SARS-CoV-2 (PCR) (Negative) Enterobacteriac sp PCR (Not Detect) E. cloacae complex PCR (Not Detect) Enterococcus sp PCR (Not Detect) E. coli (PCR) (Not Detect) H. influenzae (PCR) (Not Detect) Influenza A (RT-PCR) (NEGATIVE) Influenza B (RT-PCR) (NEGATIVE) Klebsiella oxytoca PCR (Not Detect) Klebsiella pneumoniae (Not Detect) List. monocytogenes PCR (Not Detect) N. meningitidis (PCR) (Not Detect) Proteus species (PCR) (Not Detect) RSV (PCR) (Negative) Serratia marcescens PCR (Not Detect) Staphylococcus sp PCR (Not Detect) Staph aureus (PCR) (Not Detect) mecA-Methicil Res Gene (Not Detect) Streptococcus sp PCR (Not Detect) Group A Strep (PCR) (Not Detect) Strep agalactiae (PCR) (Not Detect) Strep pneumoniae (PCR) (Not Detect) P. aeruginosa (PCR) (Not Detect) Soniya/B-Vanco Res Genes KPC-Carbap Res Gene PCR 04/28/22 04/28/22 04/28/22 Range/Units 16:12 19:10 20:01 WBC (4.5-11.0) X10^3/uL RBC (4.0-5.2) X10^6/uL Hgb (12.0-16.0) g/dL Hct (36-46) % MCV (80-100) fL MCH (26-34) PG MCHC (30-36) % RDW (11.6-14.8) % Plt Count (150-400) X10^3/uL Neut % (Auto) (50-75) % Lymph % (Auto) (25-40) % Wells % (Auto) (3-14) % Eos % (Auto) (2-4) % Baso % (Auto) (0-2) % Neut # (Auto) (2669-6203) /uL Lymph # (Auto) (1758-6707) /uL Wells # (Auto) (0-900) /uL Eos # (Auto) (0-450) /uL Baso # (Auto) (0-100) /uL PT (10.1-12.7) SECONDS INR (0.9-1.3) APTT (26-36) SECONDS D-Dimer (<500) ng/ml Sodium 142 (137-145) mmol/L Potassium 4.3 (3.4-5.1) mmol/L Chloride 107 (98-107) mmol/L Carbon Dioxide 23 (22-32) mmol/L BUN 67 H (7-17) mg/dL Creatinine 2.67 H (0.52-1.04) mg/dL Estimated GFR 18 L (>60) mL/min BUN/Creatinine Ratio 25.1 H (6-22) Glucose 104 (80-110) mg/dL Hemoglobin A1c (4.0-6.0) % Lactate (0.7-2.1) mmol/L Calcium 8.9 (8.4-10.2) mg/dL Magnesium (1.6-2.3) mg/dL Total Bilirubin (0.2-1.3) mg/dL AST (14-36) IU/L ALT (<35) IU/L Alkaline Phosphatase (38-126) U/L Total Creatine Kinase (30-135) U/L CK-MB (CK-2) CK-MB (CK-2) Rel Index Troponin I 0.014 (0.01-0.034) ng/mL C-Reactive Protein (<1.0) mg/dL NT-Pro-B Natriuret Pep (<450) pg/mL Total Protein (6.3-8.2) g/dL Albumin (3.5-5.0) g/dL Globulin (1.7-4.1) g/dL Albumin/Globulin Ratio (1.0-2.8) TSH (0.47-4.68) uIU/mL Urine RBC 0-1/hpf (0-5/HPF) Urine WBC 5-10/hpf H (0-5/HPF) Ur Squamous Epith Cells 5-10 /hpf H (0-5/HPF) Urine Bacteria Moderate (10-30) H (None) Ur Culture Indicated? Specimen cultured A. baumannii (PCR) Not detected (Not Detect) Catie albicans (PCR) Not detected (Not Detect) C. glabrata (PCR) Not detected (Not Detect) C. krusei (PCR) Not detected (Not Detect) C. parapsilosis (PCR) Not detected (Not Detect) C. tropicalis (PCR) Not detected (Not Detect) SARS-CoV-2 (PCR) (Negative) Enterobacteriac sp PCR Not detected (Not Detect) E. cloacae complex PCR Not detected (Not Detect) Enterococcus sp PCR Not detected (Not Detect) E. coli (PCR) Not detected (Not Detect) H. influenzae (PCR) Not detected (Not Detect) Influenza A (RT-PCR) (NEGATIVE) Influenza B (RT-PCR) (NEGATIVE) Klebsiella oxytoca PCR Not detected (Not Detect) Klebsiella pneumoniae Not detected (Not Detect) List. monocytogenes PCR Not detected (Not Detect) N. meningitidis (PCR) Not detected (Not Detect) Proteus species (PCR) Not detected (Not Detect) RSV (PCR) (Negative) Serratia marcescens PCR Not detected (Not Detect) Staphylococcus sp PCR Detected H (Not Detect) Staph aureus (PCR) Not detected (Not Detect) mecA-Methicil Res Gene Not detected (Not Detect) Streptococcus sp PCR Not detected (Not Detect) Group A Strep (PCR) Not detected (Not Detect) Strep agalactiae (PCR) Not detected (Not Detect) Strep pneumoniae (PCR) Not detected (Not Detect) P. aeruginosa (PCR) Not detected (Not Detect) Soniya/B-Vanco Res Genes Not Reportable KPC-Carbap Res Gene PCR Not Reportable Urine Dip Bedside Urine Glucose Negative Bedside Urine Bilirubin - Negative Bedside Urine Ketone - Negative Urine Specific Volcano 1.020 Bedside Urine Occult Blood - Negative Bedside Urine pH 6.0 Bedside Urine Protein ++ 100 Bedside Urine Urobilinogen - Negative Bedside Urine Nitrite - Negative Bedside Urine Leukocytes - Negative Esterase Imaging Data Chest x-ray: Radiologist's Impression: Signed Patient: Merline Robbins MR#: [id number] : 1945 Acct:[id number] Age/Sex: 76 / F Date of Service: 04/28/22 Loc: ED Accession Number: [id number] ?? Procedure: XR chest 2V Ordering Provider: Chadwick Eaton D.O. PROCEDURE:? XR CHEST 2V ? INDICATIONS:? SOB ? TECHNIQUE:? 2 views of the chest were acquired.? ? COMPARISON:? None. ? FINDINGS:? ? Surgical changes and devices:? None.? ? Lungs and pleura:? There is pulmonary vascular congestion.? Mild pulmonary edema is also likely present.? Blunting of bilateral costophrenic angles are noted suggestive of trace bilateral pleural effusion.? No gross pneumothorax..? ? Mediastinum:? Mediastinal contours are normal.? Heart size is enlarged.? ? Bones and chest wall:? No suspicious bony abnormalities.? Soft tissues appear unremarkable.? ? IMPRESSION:? Finding is suggestive of CHF with pulmonary vascular congestion and mild pulmonary edema.? Trace bilateral pleural effusion.? No definite focal infiltrate.? No pneumothorax. ? ? Dictated by: Alfa Orlando M.D. on 04/28/2022 at 16:42 ? ? Approved by: Alfa Orlando M.D. on 04/28/2022 at 16:4 ECG Data Interpretation: Sinus rhythm rate 64 CA interval 292 QRS [address] changes no priors to compare Q-wave noted in V3 and V4 MDM Narrative Medical decision making narrative: Patient is signed out to me by Dr. Eaton seen evaluated by myself. Patient has orthopnea and symptoms consistent with congestive heart failure. X-ray shows vascular congestion BNP is minimally elevated at 17 102 troponins are negative. She has chronic kidney disease she is followed monthly by roof service technician she is not sure what her numbers are but states 20, I am assuming GFR of 20 is her baseline. Today her GFR is 19 I do not have previous creatinine. she was seen by Nephrology last month increased her torsemide to 40 mg twice a day she has been taking it has not seemed to help her breathing. She has not traveled anywhere no history of DVT or PE. Doppers are negative for DVT. She has a negative viral panel. Patient ambulated in the emergency department in O2 dropped to 84% with exertion. She overall does not feel well. She was given Lasix here in the emergency department she urinated . Due to hypoxia with exertion she would do well attended to the hospital. Also to monitor her kidney function sometime not sure what her baseline is. She had repeat blood work which showed improved Annabella Zack accepts patient Discharge Plan Departure Patient Disposition: Admitted as Observation Clinical Impression: CHF (congestive heart failure), Chronic kidney disease Admit Date/Time: 04/28/22 20:56 Admit Provider: Nubia Dixon
[2022-04-28 16:42] LABS: Add Manual Diff / Slide Review NO; Basophils Absolute Auto 100 /uL (0-100); Basophils Percent Auto 0.6 % (0-2); Eosinophils Absolute Auto 400 /uL (0-450); Eosinophils Percent Auto 3.7 % (2-4); Hematocrit 30.4 % (36-46); Hemoglobin 9.9 g/dL (12.0-16.0); Lymphocytes Absolute Auto 1600 /uL (1100-4500); Lymphocytes Percent Auto 14.2 % (25-40); Mean Corpuscular HGB Conc 32.5 % (30-36); Mean Corpuscular Hemoglobin 28.2 PG (26-34); Mean Corpuscular Volume 86.8 fL (80-100); Monocytes Absolute Auto 800 /uL (0-900); Monocytes Percent Auto 7.7 % (3-14); Neutrophils Absolute Auto 8100 /uL (1500-7000); Neutrophils Percent Auto 73.8 % (50-75); Platelet Count 249 X10^3/uL (150-400)
[2022-04-28 16:48] LABS: INR 1.1 (0.9-1.3); Prothrombin Time 12.3 SECONDS (10.1-12.7)
[2022-04-28 16:51] LABS: Influenza A - CEPHEID Flu A NEGATIVE (NEGATIVE); Influenza B - CEPHEID Flu B NEGATIVE (NEGATIVE); Respiratory Syncytial Virus Negative (Negative)
[2022-04-28 16:51] LABS: PTT Partial Thromboplastin Tim 28 SECONDS (26-36)
[2022-04-28 16:53] LABS: Lactate (Lactic Acid) 0.6 mmol/L (0.7-2.1)
[2022-04-28 16:54] LABS: Creatine Kinase 59 U/L (30-135)
[2022-04-28 16:57] LABS: COVID-19 CEPHEID 4-PLEX PCR Negative (Negative)
[2022-04-28 16:57] LABS: Alanine Aminotransferase 16 IU/L (<35); Albumin 3.6 g/dL (3.5-5.0); Albumin Globulin Ratio 1.3 (1.0-2.8); Alkaline Phosphatase 88 U/L (38-126); Aspartate Aminotransferase 19 IU/L (14-36); BUN Creatinine Ratio 26.4 (6-22); Bilirubin Total 0.2 mg/dL (0.2-1.3); Blood Urea Nitrogen 68 mg/dL (7-17); C-Reactive Protein Quant < 0.5 mg/dL (<1.0); Calcium 8.7 mg/dL (8.4-10.2); Carbon Dioxide 19 mmol/L (22-32); Chloride 108 mmol/L (98-107); Estimated Glomerular Filt Rate 19 mL/min (>60); Globulin 2.8 g/dL (1.7-4.1); Glucose 127 mg/dL (80-110); HEMOLYSIS < 15 (0-50); Magnesium 1.7 mg/dL (1.6-2.3); Potassium 4.7 mmol/L (3.4-5.1); Sodium 141 mmol/L (137-145); Total Protein 6.4 g/dL (6.3-8.2)
[2022-04-28 17:00] LABS: D Dimer 874 ng/ml (<500)
[2022-04-28 17:03] LABS: NT-proBNP (BNP-Adult 18+) 1790 pg/mL (<450)
[2022-04-28 17:06] LABS: Troponin I < 0.012 ng/mL (0.01-0.034)
[2022-04-28] MEDS: FUROSEMIDE 40 MG/4 ML VIAL IV (18:29)
[2022-04-28] MEDS: ALBUTEROL/IPRATROPIUM 3 ML AMPUL INH (18:35)
--- NOTE | 2022-04-28 19:53 | DI.US.S_ITS ---
PROCEDURE: US PERIPH VENOUS LOW EXTREM BI INDICATIONS: SOB TECHNIQUE: Real-time imaging, as well as color and pulse Doppler interrogation, were performed of the deep veins of both legs from the inguinal ligament to the popliteal fossa. COMPARISON: None. FINDINGS: Right: The common femoral, femoral and popliteal veins are normally compressible, and free of intraluminal thrombus. Color and pulse Doppler demonstrate normal phasic intravascular flow. There is normal augmentation response to distal compression maneuver. Left: The common femoral, femoral and popliteal veins are normally compressible, and free of intraluminal thrombus. Color and pulse Doppler demonstrate normal phasic intravascular flow. There is normal augmentation response to distal compression maneuver. IMPRESSION: 1. No evidence of deep venous thrombosis in the right or left lower extremity. Dictated by: Michael Snow M.D. on 04/28/2022 at 21:35 Approved by: Michael Snow M.D. on 04/28/2022 at 21:35
[2022-04-28 19:58] LABS: Bacteria Urine Moderate (10-30); Culture Indicated Urine Specimen Cultured; RBC Urine 0-1/HPF (0-5/HPF); Squamous Epithelial Cell Urine 5-10 /HPF (0-5/HPF); WBC Urine 5-10/HPF (0-5/HPF)
[2022-04-28 20:19] LABS: BUN Creatinine Ratio 25.1 (6-22); Blood Urea Nitrogen 67 mg/dL (7-17); Calcium 8.9 mg/dL (8.4-10.2); Carbon Dioxide 23 mmol/L (22-32); Chloride 107 mmol/L (98-107); Estimated Glomerular Filt Rate 18 mL/min (>60); Glucose 104 mg/dL (80-110); HEMOLYSIS < 15 (0-50); Potassium 4.3 mmol/L (3.4-5.1); Sodium 142 mmol/L (137-145)
[2022-04-28 20:30] LABS: Troponin I 0.014 ng/mL (0.01-0.034)
--- NOTE | 2022-04-28 21:24 | DI.ECHO.S_ITS ---
[facility]---------+ [facility] +---------+ : : [address] : : : : [id number] : : : : Phone: [phone]+ Echocardiogram Report + + :Name: ASHANTI SAMUELS Study Date: 04/29/2022 Height: 64 in : :[facility] ReadingLocation: Weight: 219 lb : : Gender: Female BSA: 2.0 m2 : :: 1945 Age: 76 yrs BP: 164/75 mmHg: :Reason For Study: Congestive Heart Failure : :Ordering Physician: SATYA, : :FELIX Performed By: James Rome : :Referring: FELIX HERNADEZ : + + Interpretation Summary The ejection fraction is estimated to be 60-65%. There is mild concentric left ventricular hypertrophy. Grade II diastolic dysfunction. The right ventricle is normal in size and function. Pulmonary artery pressures cannot be estimated because of the lack of a measurable TR jet velocity. No significant valvular disease. Procedure: A two-dimensional transthoracic echocardiogram with color flow and Doppler was performed. The study quality was technically adequate. There is no prior echocardiogram noted for this patient. The patient was in normal sinus rhythm during the exam. Left Ventricle: The left ventricle is normal in size. There is mild concentric left ventricular hypertrophy. LVOT max PG 10.6mmHg. Left ventricular systolic function is normal. The ejection fraction is estimated to be 60-65%. There are no focal wall motion abnormalities. Grade II diastolic dysfunction. Right Ventricle: The right ventricle is normal in size and function. Atria: Both atria are mildly dilated. The interatrial septum grossly appears intact with no obvious evidence for an atrial septal defect. Mitral Valve: There is mild mitral annular calcification. There is trace mitral regurgitation. Aortic Valve: The aortic valve is normal in structure and function. There is no hemodynamically significant valvular aortic stenosis. No aortic regurgitation is present. Tricuspid Valve: The tricuspid valve is normal in structure and function. There is mild tricuspid regurgitation. Pulmonary artery pressures cannot be estimated because of the lack of a measurable TR jet velocity. Pulmonic Valve: The pulmonic valve is normal in structure and function. There is no pulmonic valvular regurgitation. Great Vessels: The aortic root is normal size. The dimensions of the ascending aorta are normal. The IVC is dilated (diameter is greater than 2.1 cm) and it collapses less than 50% with a sniff. This suggests a high right atrial pressure of 15 mm Hg. Pericardium/ Pleura There is no pericardial effusion. There is a large left- sided pleural effusion. MMode/2D Measurements & Calculations LVIDd: 4.7 cm LVOT diam: 1.9 cm LVIDs: 3.3 cm Ao root diam: 2.5 cm FS: 29.8 % asc Aorta Diam: 3.0 cm IVSd: 1.3 cm LVPWd: 1.3 cm LV santoro. diameter/BSA (cm/m^2): 2.3 LV sys. diameter/BSA (cm/m^2): 1.6 LA dimension: 3.8 cm RA long axis: 5.7 cm LA A2 area: 23.8 cm2 RA area: 20.7 cm2 LA A4 area: 24.6 cm2 RA vol: 64.1 ml LA length (vol): 6.1 cm RA : 31.5 ml/m2 LA vol: 82.1 ml IVC diam: 2.4 cm LA vol index: 40.4 ml/m2 TAPSE_phl: 2.5 cm Doppler Measurements & Calculations Ao V2 max: 179.0 cm/sec LVOT Max Saji: 163.0 cm/sec Ao V2 mean: 135.0 cm/sec LV V1 max P.6 mmHg Ao max P.0 mmHg LV V1 VTI: 40.2 cm Ao mean P.0 mmHg NATHAN(I,D): 2.5 cm2 Ao V2 VTI: 45.3 cm NATHAN(V,D): 2.6 cm2 sev ratio: 0.89 NATHAN indexed to BSA (cm^2/m^2): 1.2 MV E max saji: 140.5 cm/sec SV(LVOT): 114.0 ml MV A max saji: 120.0 cm/sec MV E/A: 1.2 Med Peak E' Saji: 6.6 cm/sec E/E' med: 21.4 Lat Peak E' Saji: 8.2 cm/sec E/E' lat: 17.1 E/e' average: 19.2 MV dec time: 0.25 sec AV VR_phl: 0.91 IVORY P1/2t-pr_phl: 73.0 msec NATHAN(VTI)/BSA_phl: 1.2 Reading Physician:[email or web address]
[2022-04-28 22:19] LABS: Thyroid Stimulating Hormone 3.01 uIU/mL (0.47-4.68)
[2022-04-28] MEDS: HEPARIN 5,000 UNIT/ML VIAL 5000 UNIT SUBCUT (22:23)
--- NOTE | 2022-04-28 23:10 | PM.HP.1 ---
History of Present Illness History of Present Illness Date Patient Seen: 04/28/22 Time Patient Seen: 22:30 Chief complaint: CHF exacerbation Narrative: Merline Robbins is a 76 y.o. female with Diabetes type 2, hypertension, hypothyroidism, and hyperlipidemia presented with a complaint of a 2 week history of shortness of breath, chills, no appetite, fatigue, weakness, nausea w/o vomiting, chills and clammy on exertion, denies fever, chest pain, no fever, orthnopnea, reported to desat into the 80s with exertion in the ED. She also complained of pain and swelling of her legs. Was given IV torsemide in the ED. States she usually has urinary frequency though this has been ongoing. She went to her PCP and with her complaints, they directed her to the ED for further evaluation. She sees Dr. Harry, zigzag stitcher. Chest xray reports finding suggestive of CHF with pulmonary vascular congestion and mild pulmonary edema.? Trace bilateral pleural effusion.. U/S of bilateral lower extremity was negative for a DVT. She is afebrile, blood pressure 164/75, heart rate 72, respiratory rate 20 oxygen saturation 93% on room air she weighs 99.3 kg with a BMI of 37.5. She is mildly anemic with a hemoglobin and hematocrit of 9.9 and 30.4 respectively, her D-dimer was mildly elevated at 874. Creatinine is 2.67 BUN 67 with an EGFR of 18 her A1c is 6.0, she had a normal lactate proBNP is 1790 COVID-19 and influenza panel are negative. FH: Reviewed with the patient and documented as below. Patient History Medical History CKD (chronic kidney disease) stage 4, GFR 15-29 ml/min Diabetes type 2, controlled Essential hypertension Surgical History Hx of hysterectomy Hx of tonsillectomy Family & Social History Family History Mother Congestive heart failure Myocardial infarct Father Congestive heart failure Cardiac arrest Social History: household members none Prior Living Arrangements House Safety & Behavioral: Feels Safe in Current Yes Environment Been Physically Hurt or No Threatened By a Person Tobacco & Substance use: Smoking Status Never smoker alcohol intake never Substance Use Type does not use Meds Home Medications and Allergies Home Medications Medication Instructions Recorded Confirmed Type amlodipine 5 mg tablet 5 mg PO DAILY 04/28/22 04/28/22 History carvedilol 12.5 mg tablet 12.5 mg PO BID 04/28/22 04/28/22 History fluticasone propionate 50 50 mcg intranasal BID 04/28/22 04/28/22 History mcg/actuation nasal spray,suspension hydralazine 25 mg tablet 50 mg PO TID 04/28/22 04/28/22 History insulin aspart U-100 100 unit/mL See Rx Instructions .Route .COMPLEX 04/28/22 04/28/22 History (3 mL) subcutaneous pen (Novolog Flexpen U-100 Insulin aspart) insulin glargine 100 50 unit SUBCUT DAILY 04/28/22 04/28/22 History unit-lixisenatide 33 mcg/mL subcutaneous pen ([place]iqua 100/33) levothyroxine 75 mcg tablet 75 mcg PO DAILY 04/28/22 04/28/22 History losartan 25 mg tablet 25 mg PO DAILY 04/28/22 04/28/22 History rosuvastatin 5 mg tablet 5 mg PO QPM 04/28/22 04/28/22 History torsemide 20 mg tablet See Rx Instructions .Route .COMPLEX 04/28/22 04/28/22 History Allergies Allergy/AdvReac Type Severity Reaction Status Date / Time ciprofloxacin [From Cipro] Allergy Verified 04/28/22 15:39 codeine Allergy Verified 04/28/22 15:39 metformin [From Glucophage] Allergy Verified 04/28/22 15:39 amoxicillin [From Augmentin] AdvReac Diarrhea Verified 04/28/22 15:39 clavulanic acid AdvReac Diarrhea Verified 04/28/22 15:39 [From Augmentin] Review of Systems Review of Systems ROS: Yes All systems reviewed with the patient and are negative except as otherwise documented Exam Vital Signs (past 8 hours): - 04/28/22 15:39 04/28/22 17:44 04/28/22 17:47 Temperature 98.2 F Pulse Rate 66 Respiratory Rate 24 Blood Pressure 172/74 H 171/76 H Pulse Oximetry 95 93 Oxygen Delivery Method Room Air Oxygen Flow Rate 04/28/22 17:47 04/28/22 18:00 04/28/22 18:00 Temperature Pulse Rate 62 63 Respiratory Rate 18 Blood Pressure 181/81 H Pulse Oximetry 93 95 Oxygen Delivery Method Oxygen Flow Rate 04/28/22 18:34 04/28/22 18:30 04/28/22 18:31 Temperature 96.9 F L Pulse Rate 62 63 Respiratory Rate 23 21 Blood Pressure Pulse Oximetry 94 94 Oxygen Delivery Method Oxygen Flow Rate 04/28/22 18:31 04/28/22 19:00 04/28/22 19:01 Temperature Pulse Rate 63 Respiratory Rate 20 Blood Pressure 173/79 H 183/76 H Pulse Oximetry 93 Oxygen Delivery Method Oxygen Flow Rate 04/28/22 19:01 04/28/22 19:56 04/28/22 19:30 Temperature Pulse Rate 64 70 Respiratory Rate 20 28 H Blood Pressure 215/83 H Pulse Oximetry 94 87 L Oxygen Delivery Method Oxygen Flow Rate 04/28/22 19:30 04/28/22 19:39 04/28/22 19:39 Temperature Pulse Rate 65 65 Respiratory Rate 32 H 28 H Blood Pressure 196/79 H Pulse Oximetry 92 94 Oxygen Delivery Method Oxygen Flow Rate 04/28/22 20:00 04/28/22 20:02 04/28/22 20:02 Temperature Pulse Rate 65 65 Respiratory Rate 18 23 Blood Pressure 177/80 H Pulse Oximetry 95 95 Oxygen Delivery Method Oxygen Flow Rate 04/28/22 20:30 04/28/22 20:31 04/28/22 20:31 Temperature Pulse Rate 72 67 Respiratory Rate 36 H 31 H Blood Pressure 175/80 H Pulse Oximetry 88 L 90 L Oxygen Delivery Method Room Air Oxygen Flow Rate 04/28/22 21:00 04/28/22 21:01 04/28/22 21:01 Temperature Pulse Rate 66 66 Respiratory Rate 23 27 H Blood Pressure 183/85 H Pulse Oximetry 93 93 Oxygen Delivery Method Oxygen Flow Rate 04/28/22 21:30 04/28/22 21:31 04/28/22 21:31 Temperature Pulse Rate 66 67 Respiratory Rate 32 H 45 H Blood Pressure 186/85 H Pulse Oximetry 93 93 Oxygen Delivery Method Room Air Oxygen Flow Rate 04/28/22 21:35 04/28/22 21:12 Temperature 97.0 F L Pulse Rate 70 Respiratory Rate 24 Blood Pressure 169/75 H Pulse Oximetry 93 Oxygen Delivery Method Room Air Oxygen Flow Rate 0 Oxygen Delivery Method Room Air Oxygen Flow Rate 0 Narrative Exam Narrative: Gen: Alert, oriented, well-developed 76 y.o. female, fatigued and ill appearing HEENT: normocephalic, atraumatic, conjunctiva clear, sclera non-icteric, oral mucosa pink and moist Neck: supple, full ROM, no JVD, trachea is midline Resp: Lungs CTA, non-labored breathing CV: RRR, no murmur or rubs Abd: soft, non-tender, normoactive BTs Skin: no lesions or rashes, dry and intact Neuro: Alert and oriented X 4 w/no focal deficits. Speech clear and coherent. Extremities: Bilateral +2 non-pitting edema, moves all 4 extremities, is ambulatory, negative Zoe?s sign Psyche: normal mood and affect. Objective Labs Result Diagrams: 04/28/22 16:12 04/28/22 20:01 Labs: Laboratory Results - last 24 hr 04/28/22 04/28/22 04/28/22 15:43 16:12 16:12 WBC 11.0 RBC 3.50 L Hgb 9.9 L Hct 30.4 L MCV 86.8 MCH 28.2 MCHC 32.5 RDW 15.0 H Plt Count 249 Neut % (Auto) 73.8 Lymph % (Auto) 14.2 L [place] % (Auto) 7.7 Eos % (Auto) 3.7 Baso % (Auto) 0.6 Neut # (Auto) 8100 H Lymph # (Auto) 1600 [place] # (Auto) 800 Eos # (Auto) 400 Baso # (Auto) 100 PT INR APTT D-Dimer Sodium 141 Potassium 4.7 Chloride 108 H Carbon Dioxide 19 L BUN 68 H Creatinine 2.58 H Estimated GFR 19 L BUN/Creatinine Ratio 26.4 H Glucose 127 H Lactate Calcium 8.7 Magnesium 1.7 Total Bilirubin 0.2 AST 19 ALT 16 Alkaline Phosphatase 88 Total Creatine Kinase CK-MB (CK-2) CK-MB (CK-2) Rel Index Troponin I C-Reactive Protein < 0.5 NT-Pro-B Natriuret Pep 1790 H Total Protein 6.4 Albumin 3.6 Globulin 2.8 Albumin/Globulin Ratio 1.3 Urine RBC Urine WBC Ur Squamous Epith Cells Urine Bacteria Ur Culture Indicated? SARS-CoV-2 (PCR) Negative Influenza A (RT-PCR) Flu a negative Influenza B (RT-PCR) Flu b negative RSV (PCR) Negative 04/28/22 04/28/22 04/28/22 16:12 16:12 16:12 WBC RBC Hgb Hct MCV MCH MCHC RDW Plt Count Neut % (Auto) Lymph % (Auto) [place] % (Auto) Eos % (Auto) Baso % (Auto) Neut # (Auto) Lymph # (Auto) [place] # (Auto) Eos # (Auto) Baso # (Auto) PT 12.3 INR 1.1 APTT 28 D-Dimer Sodium Potassium Chloride Carbon Dioxide BUN Creatinine Estimated GFR BUN/Creatinine Ratio Glucose Lactate 0.6 L Calcium Magnesium Total Bilirubin AST ALT Alkaline Phosphatase Total Creatine Kinase 59 CK-MB (CK-2) TNP CK-MB (CK-2) Rel Index TNP Troponin I < 0.012 C-Reactive Protein NT-Pro-B Natriuret Pep Total Protein Albumin Globulin Albumin/Globulin Ratio Urine RBC Urine WBC Ur Squamous Epith Cells Urine Bacteria Ur Culture Indicated? SARS-CoV-2 (PCR) Influenza A (RT-PCR) Influenza B (RT-PCR) RSV (PCR) 04/28/22 04/28/22 04/28/22 16:12 19:10 20:01 WBC RBC Hgb Hct MCV MCH MCHC RDW Plt Count Neut % (Auto) Lymph % (Auto) [place] % (Auto) Eos % (Auto) Baso % (Auto) Neut # (Auto) Lymph # (Auto) [place] # (Auto) Eos # (Auto) Baso # (Auto) PT INR APTT D-Dimer 874 H Sodium 142 Potassium 4.3 Chloride 107 Carbon Dioxide 23 BUN 67 H Creatinine 2.67 H Estimated GFR 18 L BUN/Creatinine Ratio 25.1 H Glucose 104 Lactate Calcium 8.9 Magnesium Total Bilirubin AST ALT Alkaline Phosphatase Total Creatine Kinase CK-MB (CK-2) CK-MB (CK-2) Rel Index Troponin I 0.014 C-Reactive Protein NT-Pro-B Natriuret Pep Total Protein Albumin Globulin Albumin/Globulin Ratio Urine RBC 0-1/hpf Urine WBC 5-10/hpf H Ur Squamous Epith Cells 5-10 /hpf H Urine Bacteria Moderate (10-30) H Ur Culture Indicated? Specimen cultured SARS-CoV-2 (PCR) Influenza A (RT-PCR) Influenza B (RT-PCR) RSV (PCR) Assessment & Plan Assessment & Plan narrative: Merline Robbins is admitted for a CHF exacerbation CHF exacerbation She takes a beta gregory and an gauri Echo in the am Fluid restricted diet RT to assess dyspnea Acute on chronic kidney injury Sees Dr. Harry, zigzag stitcher, will need to notify and get records Diabetes type 2 A1c is pending Continue home dose of glargine 50 units at bedtime, low-dose correctional scale HTN See CHF exacerbation Dyslipidemia Continue rosuvastatin 5 mg po daily VTE Prophylaxis: Wells risk score 4.5 X Heparin 5000 subQ BID Bilateral SCDs Patient is admitted to the inpatient service due to the severity of disease, risks of further disease progression and this stay is expected to exceed 2 midnights. FEN: IV fluids: saline lock, diet: carb controlled diet w/a fluid restriction, labs: CBC, C/BMP, liver enzymes, Mag, PT/INR Consultants None Dispo: probable d/c to home Code status: DNR/DNI as discussed with the patient who identifies Her daughter Sully as her surrogate and POA. [X] I have utilized all available immediate resources to obtain, update, or review of the patient's current medications VTE Deep Vein Thrombosis/Pulmonary Embolism Present on Admission: No MIPS - Admit I confirm the patient?s Advance Care Plan is present, Code status is documented, Surrogate decision maker is in patient?s record: Yes MIPS - DC The patient has current or prior documentation of left ventricular ejection fraction (LVEF) less than 40%, or moderate or severely depressed left ventricular systolic function.: No COVID-19 COVID-19 status: Negative Result date/Date tested (Pos, Neg/Pending): 04/28/22 Scores Wells' Criteria for PE Clinical signs and symptoms of DVT: Yes PE is #1 Dx or equally likely: No Heart rate > 100: No Immobilization at least 3 days or surg in previous 4 weeks: Yes History of PE or DVT: No Hemoptysis: No Malignancy w/Treatment within 6 months or palliative: No Wells' PE Score total: 4.5
[2022-04-28] MEDS: carvediloL 12.5 MG TABLET PO (23:46)
[2022-04-29] VITALS: BP 164/75; PULSE 72; RESP 20; TEMP 36.2; O2SAT 93
[2022-04-29 02:46] LABS: Troponin I 0.018 ng/mL (0.01-0.034)
--- NOTE | 2022-04-29 04:15 | PC.NURSE ---
Pt is AxOx4, need STA and cooperative. VSS except RR slightly tachypneac but sats well on RA. However, pt desats with activity and requires O2. Pt denies pain. Pt on fluid restriction 400 cc for the night and pt is doing well. Pt slept well. No other changes. Continue monitor.
[2022-04-29 05:09] LABS: Add Manual Diff / Slide Review NO; Basophils Absolute Auto 0 /uL (0-100); Basophils Percent Auto 0.5 % (0-2); Eosinophils Absolute Auto 400 /uL (0-450); Eosinophils Percent Auto 3.7 % (2-4); Hematocrit 27.3 % (36-46); Lymphocytes Absolute Auto 1600 /uL (1100-4500); Lymphocytes Percent Auto 15.7 % (25-40); Mean Corpuscular HGB Conc 33.1 % (30-36); Mean Corpuscular Hemoglobin 28.8 PG (26-34); Mean Corpuscular Volume 86.7 fL (80-100); Monocytes Absolute Auto 800 /uL (0-900); Monocytes Percent Auto 7.9 % (3-14); Neutrophils Absolute Auto 7500 /uL (1500-7000); Neutrophils Percent Auto 72.2 % (50-75); Platelet Count 231 X10^3/uL (150-400); Red Blood Cell Count 3.14 X10^6/uL (4.0-5.2); Red Cell Distribution Width 14.8 % (11.6-14.8); White Blood Cell Count 10.3 X10^3/uL (4.5-11.0)
[2022-04-29 05:21] LABS: Alanine Aminotransferase 15 IU/L (<35); Albumin 3.3 g/dL (3.5-5.0); Albumin Globulin Ratio 1.1 (1.0-2.8); Alkaline Phosphatase 79 U/L (38-126); Aspartate Aminotransferase 18 IU/L (14-36); BUN Creatinine Ratio 25.1 (6-22); Bilirubin Total 0.3 mg/dL (0.2-1.3); Blood Urea Nitrogen 64 mg/dL (7-17); Calcium 8.5 mg/dL (8.4-10.2); Carbon Dioxide 24 mmol/L (22-32); Chloride 107 mmol/L (98-107); Estimated Glomerular Filt Rate 19 mL/min (>60); Glucose 101 mg/dL (80-110); HEMOLYSIS < 15 (0-50); Potassium 4.1 mmol/L (3.4-5.1); Sodium 142 mmol/L (137-145); Total Protein 6.3 g/dL (6.3-8.2)
[2022-04-29] MEDS: LEVOTHYROXINE 75 MCG TABLET PO (07:39)
[2022-04-29] MEDS: carvediloL 12.5 MG TABLET PO ×2 (08:22→21:27)
[2022-04-29] MEDS: AMLODIPINE 5 MG TABLET PO (08:22)
[2022-04-29] MEDS: LOSARTAN 25 MG TABLET PO (08:23)
[2022-04-29] MEDS: HEPARIN 5,000 UNIT/ML VIAL 5000 UNIT SUBCUT ×2 (08:23→21:27)
--- NOTE | 2022-04-29 08:37 | CM.DANOTE ---
DCP Assessment: Payor confirmed: [employer] & [employer] PCP confirmed: Bethany Orozco MD Pt is a 76 y.o. F who presented to the ER with chief complaint of SOB and fatigue. Pt has a history of diabetes, CKD, and hypertension. Pt was admitted under observation for further evaluation and management of CHF and kidney function. DCP met with pt this morning to discuss discharge needs. Pt sitting up in bed eating breakfast. DCP introduced herself and role. Pt states that she lives alone in [place] in a single story house. Pt denies DME use and still drives POV. Pt does states she has not driven in about a week. Pt states that he daughter, Kari, is her emergency contact and will pick her up from the hospital once she is ready for discharge. Pt denies any HH or caregivers. Pt denies any resources at this time. DCP to continue to follow. White board updated and instructed to call. Pt thankful for discussion. P: Once pt is medically stable for discharge, pt to discharge home via daughter POV. Felicia Ly RN/SID Discharge Planning/Care Management CM Discharge Assessment Start: 04/29/22 08:36 Freq: Status: Active Protocol: Document 04/29/22 08:36 [email or web address] (Rec: 04/29/22 08:37 [id number]) Discharge Planning Assessment Assigned Tube Station Attendant Felicia Ly RN/SID Advance Directives? No History Provided By Patient Prior Living Arrangements House Household Members none Type of transporation used prior to Drives own vehicle admit Comment Hasn't driven in the last week Independent with ADL's Yes Is patient alert and oriented? Yes Caregiver for Another No Discharge Plan Home Transportation Arrangement Daughter POV Referrals Initiated None needed Additional Comment At this time. Whiteboard Updated in Patient Room with Yes name and ext. # of Tube Station Attendant Comment Instructed to call Review Status In Process Please Provide Date Initial DC 04/29/22 Assessment Was Performed Next Review Type Continued Stay Review
[2022-04-29] MEDS: INSULIN GLARGINE 100 UNIT/ML 3ML PEN 50 UNIT SUBCUT (08:42)
[2022-04-29 08:46] VITALS: BP 163/72; PULSE 73; RESP 17; TEMP 36.9; O2SAT 91
[2022-04-29 09:31] LABS: Troponin I 0.018 ng/mL (0.01-0.034)
[2022-04-29 12:00] VITALS: BP 152/71; PULSE 67; RESP 20; TEMP 37.1; O2SAT 91
--- NOTE | 2022-04-29 12:57 | PM.PN.1 ---
Subjective Subjective Date Patient Seen: 04/29/22 Interval history: Continues to feel short of breath with minimal exertion, she also endorses decreased appetite and leg swelling. She does not feel much improvement thus far. Exam Vital Signs (past 8 hours): - 04/29/22 08:46 04/29/22 12:00 Temperature 98.5 F 98.7 F Pulse Rate 73 67 Respiratory Rate 17 20 Blood Pressure 163/72 H 152/71 H Pulse Oximetry 91 91 Oxygen Flow Rate 0 Oxygen Delivery Method Room Air Oxygen Flow Rate 0 Narrative Exam Narrative: Gen: WDWN 76 y.o. female, fatigued HEENT: normocephalic, atraumatic, conjunctiva clear, sclera non-icteric, oral mucosa pink and moist Neck: supple, full ROM, no JVD, trachea is midline Resp: Lungs CTA, non-labored breathing CV: RRR, no murmur or rubs Abd: soft, non-tender, normoactive BTs Skin: no lesions or rashes, dry and intact Neuro: Alert and oriented X 4 w/no focal deficits. Speech clear and coherent. Extremities: Bilateral trace to 1+ non-pitting edema, no joint effusions Psyche: normal mood and affect. Objective Labs Result Diagrams: 04/29/22 04:27 04/29/22 04:27 Labs: Laboratory Results - last 24 hr 04/28/22 04/28/22 04/28/22 15:43 16:12 16:12 WBC 11.0 RBC 3.50 L Hgb 9.9 L Hct 30.4 L MCV 86.8 MCH 28.2 MCHC 32.5 RDW 15.0 H Plt Count 249 Neut % (Auto) 73.8 Lymph % (Auto) 14.2 L [place] % (Auto) 7.7 Eos % (Auto) 3.7 Baso % (Auto) 0.6 Neut # (Auto) 8100 H Lymph # (Auto) 1600 [place] # (Auto) 800 Eos # (Auto) 400 Baso # (Auto) 100 PT INR APTT D-Dimer Sodium 141 Potassium 4.7 Chloride 108 H Carbon Dioxide 19 L BUN 68 H Creatinine 2.58 H Estimated GFR 19 L BUN/Creatinine Ratio 26.4 H Glucose 127 H Hemoglobin A1c Lactate Calcium 8.7 Magnesium 1.7 Total Bilirubin 0.2 AST 19 ALT 16 Alkaline Phosphatase 88 Total Creatine Kinase CK-MB (CK-2) CK-MB (CK-2) Rel Index Troponin I C-Reactive Protein < 0.5 NT-Pro-B Natriuret Pep 1790 H Total Protein 6.4 Albumin 3.6 Globulin 2.8 Albumin/Globulin Ratio 1.3 TSH Urine RBC Urine WBC Ur Squamous Epith Cells Urine Bacteria Ur Culture Indicated? SARS-CoV-2 (PCR) Negative Influenza A (RT-PCR) Flu a negative Influenza B (RT-PCR) Flu b negative RSV (PCR) Negative 04/28/22 04/28/22 04/28/22 16:12 16:12 16:12 WBC RBC Hgb Hct MCV MCH MCHC RDW Plt Count Neut % (Auto) Lymph % (Auto) [place] % (Auto) Eos % (Auto) Baso % (Auto) Neut # (Auto) Lymph # (Auto) [place] # (Auto) Eos # (Auto) Baso # (Auto) PT 12.3 INR 1.1 APTT 28 D-Dimer Sodium Potassium Chloride Carbon Dioxide BUN Creatinine Estimated GFR BUN/Creatinine Ratio Glucose Hemoglobin A1c Lactate 0.6 L Calcium Magnesium Total Bilirubin AST ALT Alkaline Phosphatase Total Creatine Kinase 59 CK-MB (CK-2) TNP CK-MB (CK-2) Rel Index TNP Troponin I < 0.012 C-Reactive Protein NT-Pro-B Natriuret Pep Total Protein Albumin Globulin Albumin/Globulin Ratio TSH Urine RBC Urine WBC Ur Squamous Epith Cells Urine Bacteria Ur Culture Indicated? SARS-CoV-2 (PCR) Influenza A (RT-PCR) Influenza B (RT-PCR) RSV (PCR) 04/28/22 04/28/22 04/28/22 16:12 16:12 16:12 WBC RBC Hgb Hct MCV MCH MCHC RDW Plt Count Neut % (Auto) Lymph % (Auto) [place] % (Auto) Eos % (Auto) Baso % (Auto) Neut # (Auto) Lymph # (Auto) [place] # (Auto) Eos # (Auto) Baso # (Auto) PT INR APTT D-Dimer 874 H Sodium Potassium Chloride Carbon Dioxide BUN Creatinine Estimated GFR BUN/Creatinine Ratio Glucose Hemoglobin A1c 6.0 Lactate Calcium Magnesium Total Bilirubin AST ALT Alkaline Phosphatase Total Creatine Kinase CK-MB (CK-2) CK-MB (CK-2) Rel Index Troponin I C-Reactive Protein NT-Pro-B Natriuret Pep Total Protein Albumin Globulin Albumin/Globulin Ratio TSH 3.01 Urine RBC Urine WBC Ur Squamous Epith Cells Urine Bacteria Ur Culture Indicated? SARS-CoV-2 (PCR) Influenza A (RT-PCR) Influenza B (RT-PCR) RSV (PCR) 04/28/22 04/28/22 04/29/22 19:10 20:01 02:07 WBC RBC Hgb Hct MCV MCH MCHC RDW Plt Count Neut % (Auto) Lymph % (Auto) [place] % (Auto) Eos % (Auto) Baso % (Auto) Neut # (Auto) Lymph # (Auto) [place] # (Auto) Eos # (Auto) Baso # (Auto) PT INR APTT D-Dimer Sodium 142 Potassium 4.3 Chloride 107 Carbon Dioxide 23 BUN 67 H Creatinine 2.67 H Estimated GFR 18 L BUN/Creatinine Ratio 25.1 H Glucose 104 Hemoglobin A1c Lactate Calcium 8.9 Magnesium Total Bilirubin AST ALT Alkaline Phosphatase Total Creatine Kinase CK-MB (CK-2) CK-MB (CK-2) Rel Index Troponin I 0.014 0.018 C-Reactive Protein NT-Pro-B Natriuret Pep Total Protein Albumin Globulin Albumin/Globulin Ratio TSH Urine RBC 0-1/hpf Urine WBC 5-10/hpf H Ur Squamous Epith Cells 5-10 /hpf H Urine Bacteria Moderate (10-30) H Ur Culture Indicated? Specimen cultured SARS-CoV-2 (PCR) Influenza A (RT-PCR) Influenza B (RT-PCR) RSV (PCR) 04/29/22 04/29/22 04/29/22 04:27 04:27 08:26 WBC 10.3 RBC 3.14 L Hgb 9.0 L Hct 27.3 L MCV 86.7 MCH 28.8 MCHC 33.1 RDW 14.8 Plt Count 231 Neut % (Auto) 72.2 Lymph % (Auto) 15.7 L [place] % (Auto) 7.9 Eos % (Auto) 3.7 Baso % (Auto) 0.5 Neut # (Auto) 7500 H Lymph # (Auto) 1600 [place] # (Auto) 800 Eos # (Auto) 400 Baso # (Auto) 0 PT INR APTT D-Dimer Sodium 142 Potassium 4.1 Chloride 107 Carbon Dioxide 24 BUN 64 H Creatinine 2.55 H Estimated GFR 19 L BUN/Creatinine Ratio 25.1 H Glucose 101 Hemoglobin A1c Lactate Calcium 8.5 Magnesium Total Bilirubin 0.3 AST 18 ALT 15 Alkaline Phosphatase 79 Total Creatine Kinase CK-MB (CK-2) CK-MB (CK-2) Rel Index Troponin I 0.018 C-Reactive Protein NT-Pro-B Natriuret Pep Total Protein 6.3 Albumin 3.3 L Globulin 3.0 Albumin/Globulin Ratio 1.1 TSH Urine RBC Urine WBC Ur Squamous Epith Cells Urine Bacteria Ur Culture Indicated? SARS-CoV-2 (PCR) Influenza A (RT-PCR) Influenza B (RT-PCR) RSV (PCR) PFSH Medical History CKD (chronic kidney disease) stage 4, GFR 15-29 ml/min Diabetes type 2, controlled Essential hypertension Surgical History Hx of hysterectomy Hx of tonsillectomy Family History Mother Congestive heart failure Myocardial infarct Father Congestive heart failure Cardiac arrest Social History household members: none Smoking Status: Never smoker alcohol intake: never Assessment & Plan Assessment & Plan narrative: Merline Robbins is admitted for a CHF exacerbation Acute diastolic heart failure, present on admission - TTE today with normal EF and grade II diastolic dysfunction - continue diuresis with furosemide IV 40 mg BID, may need adjustments - strict intake and output and daily weights - work on BP control, though likely to improve with diuresis Possible MAYO on chronic kidney disease, unknown stage - continue to follow creatinine, unknown baseline at this time HTN - will need medication adjustments given HTN and need for diuresis. Currently have held amlodipine and hydralazine in favor of diuretic, will continue coreg and losartan. Dyslipidemia - continue home medications. Anemia - unclear chronicity, continue to follow DM - replaced home insulin with basal and bolus dosing, will adjust as needed. Asymptomatic bacteruria. - no treatment necessary for + UA. VTE Prophylaxis: HSQ BID Dispo: probable d/c to home, timing unclear at this time. Code status: DNR/DNI as discussed with the patient who identifies Her daughter Sully as her surrogate and POA. [X] I have utilized all available immediate resources to obtain, update, or review of the patient's current medications VTE Deep Vein Thrombosis/Pulmonary Embolism Present on Admission: No MIPS - Admit I confirm the patient?s Advance Care Plan is present, Code status is documented, Surrogate decision maker is in patient?s record: Yes MIPS - DC The patient has current or prior documentation of left ventricular ejection fraction (LVEF) less than 40%, or moderate or severely depressed left ventricular systolic function.: No COVID-19 COVID-19 status: Negative Result date/Date tested (Pos, Neg/Pending): 04/28/22 Time Spent With Patient Critical Care time: I spent a total of [] minutes of critical care time on this patient's care today; this time is exclusive of procedural time.
[2022-04-29] MEDS: FUROSEMIDE 40 MG/4 ML VIAL IV ×2 (13:18→17:04)
[2022-04-29 13:45] VITALS: BP 144/61; PULSE 66; RESP 17; O2SAT 90
[2022-04-29 15:35] LABS: Clostridium Difficile Tox PCR Positive for C. diff (Negative)
--- NOTE | 2022-04-29 16:46 | PC.NURSE ---
Day shift: Dr Currie made aware of C. Dif results from lab.
[2022-04-29] MEDS: VANCOMYCIN 125 MG CAPSULE PO ×2 (17:03→22:25)
[2022-04-29] MEDS: INSULIN LISPRO 100 UNIT/ML 3ML VIAL SUBCUT (17:18)
--- NOTE | 2022-04-29 18:07 | PC.NURSE ---
Day shift: Dr Currie made aware of blood culture result at this time ([id number]).
--- NOTE | 2022-04-29 18:15 | PC.NURSE ---
Day shift: Dr Currie informed of rash in [place] area at approx 1800 today. No new orders at this time.
[2022-04-29 18:23] LABS: Enterococcus species Not Detected (Not Detect); Listeria monocytogenes Not Detected (Not Detect); Methicillin-resistant gene Not Detected (Not Detect); Staphylococcus species Detected (Not Detect)
[2022-04-29 18:24] LABS: Acinetobacter baumannii Not Detected (Not Detect); Candida albicans Not Detected (Not Detect); Candida glabrata Not Detected (Not Detect); Candida krusei Not Detected (Not Detect); Candida parapsilosis Not Detected (Not Detect); Candida tropicalis Not Detected (Not Detect); E. coli Not Detected (Not Detect); Enterobacter cloacae complex Not Detected (Not Detect); Enterobacteriaceae species Not Detected (Not Detect); Haemophilus influenzae Not Detected (Not Detect); Neisseria meningitidis Not Detected (Not Detect); Proteus species Not Detected (Not Detect); Pseudomonas aeruginosa Not Detected (Not Detect); Serratia marcescens Not Detected (Not Detect); Streptococcus agalactiae (Gr B Not Detected (Not Detect); Streptococcus pneumonia Not Detected (Not Detect); Streptococcus pyogenes (Gr A) Not Detected (Not Detect); Streptococcus species Not Detected (Not Detect)
[2022-04-29 20:00] VITALS: BP 175/77; PULSE 68; RESP 20; TEMP 36.7; O2SAT 92
[2022-04-29 20:15] LABS: Troponin I < 0.012 ng/mL (0.01-0.034)
[2022-04-29 21:27] VITALS: BP 177/75; PULSE 71
[2022-04-29] MEDS: ATORVASTATIN 20 MG TABLET 10 MG PO (21:27)
[2022-04-29] MEDS: SODIUM CHLORIDE 0.9% FLUSH 10 ML IV (21:28)
[2022-04-29 22:06] LABS: Troponin I < 0.012 ng/mL (0.01-0.034)
[2022-04-30 00:02] VITALS: BP 154/64; PULSE 70; RESP 17; TEMP 36.9; O2SAT 92
[2022-04-30] MEDS: VANCOMYCIN 125 MG CAPSULE PO ×4 (04:38→22:03)
[2022-04-30 04:54] LABS: Add Manual Diff / Slide Review NO; Basophils Absolute Auto 100 /uL (0-100); Basophils Percent Auto 0.6 % (0-2); Eosinophils Absolute Auto 400 /uL (0-450); Eosinophils Percent Auto 3.9 % (2-4); Hemoglobin 8.9 g/dL (12.0-16.0); Lymphocytes Absolute Auto 1900 /uL (1100-4500); Lymphocytes Percent Auto 19.7 % (25-40); Mean Corpuscular HGB Conc 32.7 % (30-36); Mean Corpuscular Hemoglobin 28.1 PG (26-34); Mean Corpuscular Volume 85.8 fL (80-100); Monocytes Absolute Auto 900 /uL (0-900); Monocytes Percent Auto 9.4 % (3-14); Neutrophils Absolute Auto 6400 /uL (1500-7000); Neutrophils Percent Auto 66.4 % (50-75); Platelet Count 220 X10^3/uL (150-400); Red Blood Cell Count 3.15 X10^6/uL (4.0-5.2); Red Cell Distribution Width 15.1 % (11.6-14.8); White Blood Cell Count 9.7 X10^3/uL (4.5-11.0)
[2022-04-30 05:00] LABS: Alanine Aminotransferase 15 IU/L (<35); Alkaline Phosphatase 74 U/L (38-126); Aspartate Aminotransferase 17 IU/L (14-36); BUN Creatinine Ratio 25.1 (6-22); Bilirubin Total 0.2 mg/dL (0.2-1.3); Blood Urea Nitrogen 59 mg/dL (7-17); Calcium 7.9 mg/dL (8.4-10.2); Carbon Dioxide 24 mmol/L (22-32); Chloride 109 mmol/L (98-107); Estimated Glomerular Filt Rate 21 mL/min (>60); Glucose 88 mg/dL (80-110); HEMOLYSIS < 15 (0-50); Potassium 4.4 mmol/L (3.4-5.1); Sodium 141 mmol/L (137-145)
[2022-04-30 06:00] VITALS: BP 115/68; PULSE 68; RESP 16; TEMP 37.1; O2SAT 97
[2022-04-30] MEDS: LEVOTHYROXINE 75 MCG TABLET PO (06:09)
[2022-04-30] MEDS: INSULIN GLARGINE 100 UNIT/ML 3ML PEN 50 UNIT SUBCUT (09:03)
[2022-04-30] MEDS: LOSARTAN 25 MG TABLET PO (09:04)
[2022-04-30] MEDS: HEPARIN 5,000 UNIT/ML VIAL 5000 UNIT SUBCUT ×2 (09:04→20:28)
[2022-04-30] MEDS: ASPIRIN EC 81 MG TABLET PO (09:04)
[2022-04-30] MEDS: carvediloL 12.5 MG TABLET PO ×2 (09:04→20:34)
[2022-04-30] MEDS: FUROSEMIDE 40 MG/4 ML VIAL IV ×2 (09:05→16:42)
[2022-04-30] MEDS: SODIUM CHLORIDE 0.9% FLUSH 10 ML IV ×2 (09:05→20:34)
--- NOTE | 2022-04-30 10:56 | PM.PN.1 ---
Subjective Subjective Date Patient Seen: 04/30/22 Interval history: Continues to feel short of breath with minimal exertion though it is slightly better today. Her leg swelling is better, bowel movements are more formed today. C. diff testing was positive yesterday. Exam Vital Signs (past 8 hours): - 04/30/22 06:00 04/30/22 08:48 Temperature 98.8 F Pulse Rate 68 Respiratory Rate 16 Blood Pressure 115/68 Pulse Oximetry 97 Oxygen Delivery Method Room Air Oxygen Delivery Method Room Air Oxygen Flow Rate 0 Narrative Exam Narrative: Gen: WDWN 76 y.o. female, fatigued HEENT: normocephalic, atraumatic, conjunctiva clear, sclera non-icteric, oral mucosa pink and moist Neck: supple, full ROM, no JVD, trachea is midline Resp: Lungs CTA, non-labored breathing CV: RRR, no murmur or rubs Abd: soft, non-tender, normoactive BTs Skin: no lesions or rashes, dry and intact Neuro: Alert and oriented X 4 w/no focal deficits. Speech clear and coherent. Extremities: Bilateral trace to 1+ non-pitting edema, no joint effusions Psyche: normal mood and affect. Objective Labs Result Diagrams: 04/30/22 04:39 04/30/22 04:39 Labs: Laboratory Results - last 24 hr 04/28/22 04/29/22 04/29/22 16:12 13:45 14:06 WBC RBC Hgb Hct MCV MCH MCHC RDW Plt Count Neut % (Auto) Lymph % (Auto) [place] % (Auto) Eos % (Auto) Baso % (Auto) Neut # (Auto) Lymph # (Auto) [place] # (Auto) Eos # (Auto) Baso # (Auto) Sodium Potassium Chloride Carbon Dioxide BUN Creatinine Estimated GFR BUN/Creatinine Ratio Glucose Calcium Total Bilirubin AST ALT Alkaline Phosphatase Troponin I < 0.012 Total Protein Albumin Globulin Albumin/Globulin Ratio A. baumannii (PCR) Not detected Catie albicans (PCR) Not detected C. glabrata (PCR) Not detected C. krusei (PCR) Not detected C. parapsilosis (PCR) Not detected C. tropicalis (PCR) Not detected C. difficile Tox (PCR) Positive for c. diff H Enterobacteriac sp PCR Not detected E. cloacae complex PCR Not detected Enterococcus sp PCR Not detected E. coli (PCR) Not detected H. influenzae (PCR) Not detected Klebsiella oxytoca PCR Not detected Klebsiella pneumoniae Not detected List. monocytogenes PCR Not detected N. meningitidis (PCR) Not detected Proteus species (PCR) Not detected Serratia marcescens PCR Not detected Staphylococcus sp PCR Detected H Staph aureus (PCR) Not detected mecA-Methicil Res Gene Not detected Streptococcus sp PCR Not detected Group A Strep (PCR) Not detected Strep agalactiae (PCR) Not detected Strep pneumoniae (PCR) Not detected P. aeruginosa (PCR) Not detected Soniya/B-Vanco Res Genes Not Reportable KPC-Carbap Res Gene PCR Not Reportable 04/29/22 04/30/22 04/30/22 21:37 04:39 04:39 WBC 9.7 RBC 3.15 L Hgb 8.9 L Hct 27.0 L MCV 85.8 MCH 28.1 MCHC 32.7 RDW 15.1 H Plt Count 220 Neut % (Auto) 66.4 Lymph % (Auto) 19.7 L [place] % (Auto) 9.4 Eos % (Auto) 3.9 Baso % (Auto) 0.6 Neut # (Auto) 6400 Lymph # (Auto) 1900 [place] # (Auto) 900 Eos # (Auto) 400 Baso # (Auto) 100 Sodium 141 Potassium 4.4 Chloride 109 H Carbon Dioxide 24 BUN 59 H Creatinine 2.35 H Estimated GFR 21 L BUN/Creatinine Ratio 25.1 H Glucose 88 Calcium 7.9 L Total Bilirubin 0.2 AST 17 ALT 15 Alkaline Phosphatase 74 Troponin I < 0.012 Total Protein 6.0 L Albumin 3.0 L Globulin 3.0 Albumin/Globulin Ratio 1.0 A. baumannii (PCR) Catie albicans (PCR) C. glabrata (PCR) C. krusei (PCR) C. parapsilosis (PCR) C. tropicalis (PCR) C. difficile Tox (PCR) Enterobacteriac sp PCR E. cloacae complex PCR Enterococcus sp PCR E. coli (PCR) H. influenzae (PCR) Klebsiella oxytoca PCR Klebsiella pneumoniae List. monocytogenes PCR N. meningitidis (PCR) Proteus species (PCR) Serratia marcescens PCR Staphylococcus sp PCR Staph aureus (PCR) mecA-Methicil Res Gene Streptococcus sp PCR Group A Strep (PCR) Strep agalactiae (PCR) Strep pneumoniae (PCR) P. aeruginosa (PCR) Soniya/B-Vanco Res Genes KPC-Carbap Res Gene PCR [facility] Medical History CKD (chronic kidney disease) stage 4, GFR 15-29 ml/min Diabetes type 2, controlled Essential hypertension Surgical History Hx of hysterectomy Hx of tonsillectomy Family History Mother Congestive heart failure Myocardial infarct Father Congestive heart failure Cardiac arrest Social History household members: none Smoking Status: Never smoker alcohol intake: never Assessment & Plan Assessment & Plan narrative: Merline Robbins is admitted for a CHF exacerbation Acute diastolic heart failure, present on admission - TTE today with normal EF and grade II diastolic dysfunction - continue diuresis with furosemide IV 40 mg BID, improved slightly today but remains weak and dyspnic. - PT / OT evaluation ordered today. - strict intake and output and daily weights - work on BP control, though likely to improve with diuresis MAYO on chronic kidney disease, unknown stage - continue to follow creatinine, unknown baseline at this time. Creatinine 2.67 on admission now to 2.35 today. HTN - will need medication adjustments given HTN and need for diuresis. Currently have held amlodipine and hydralazine in favor of diuretic, will continue coreg and losartan. Dyslipidemia - continue home medications. Anemia - unclear chronicity, continue to follow. Likely chronic and secondary to chronic inflammation / CKD. Hg stable around 9 here thus far. DM - replaced home insulin with basal and bolus dosing, will adjust as needed. Asymptomatic bacteruria. - no treatment necessary for + UA. VTE Prophylaxis: HSQ BID Dispo: probable d/c to home, timing in 1-3 days depending on symptoms and PT / OT evaluations. Code status: DNR/DNI as discussed with the patient who identifies Her daughter Sully as her surrogate and POA. [X] I have utilized all available immediate resources to obtain, update, or review of the patient's current medications VTE Deep Vein Thrombosis/Pulmonary Embolism Present on Admission: No MIPS - Admit I confirm the patient?s Advance Care Plan is present, Code status is documented, Surrogate decision maker is in patient?s record: Yes MIPS - DC The patient has current or prior documentation of left ventricular ejection fraction (LVEF) less than 40%, or moderate or severely depressed left ventricular systolic function.: No COVID-19 COVID-19 status: Negative Result date/Date tested (Pos, Neg/Pending): 04/28/22 Time Spent With Patient Critical Care time: I spent a total of [] minutes of critical care time on this patient's care today; this time is exclusive of procedural time.
--- NOTE | 2022-04-30 11:15 | PT.IIE ---
Surgical History (Last Reviewed 04/29/22 @ 01:45 by FLORENTIN Roca) Hx of hysterectomy Hx of tonsillectomy Medical History (Last Reviewed 04/29/22 @ 01:45 by FLORENTIN Roca) CKD (chronic kidney disease) stage 4, GFR 15-29 ml/min Diabetes type 2, controlled Essential hypertension Physical Therapy Inpatient Evaluation/Re-Eval M1 PT/OT-IP Prior Functional Status Start: 04/30/22 12:49 Freq: NEEDED Status: Active Protocol: Document 04/30/22 11:15 AB (Rec: 04/30/22 12:58 AB [id number]) Medical Review Prior Functional Status Medical History Reviewed Yes Communication able to make needs known Mobility and Gait pt stated that she is independent with all mobilities and ambulation without AD Social History Household Members none Living Arrangements House Number of Floors (Floors) One Floor Number of Stairs To Enter/Railing? 1 step to enter Home Environment High Toilet,Walk in Shower Home Equipment Hand Held Shower,Grab Bars Near Toilet,Grab Bars In Shower M2 PT-IP Current Condition Start: 04/30/22 12:49 Freq: NEEDED Status: Active Protocol: Document 04/30/22 11:15 AB (Rec: 04/30/22 12:58 AB [id number]) Physical Therapy Current Condition Current Condition Evaluation Date 04/30/22 Treatment Diagnosis CHF; difficulty in walking Onset Date 04/28/22 M3 PT-IP Subjective Start: 04/30/22 12:49 Freq: NEEDED Status: Active Protocol: Document 04/30/22 11:15 AB (Rec: 04/30/22 12:58 AB [email or web address]) Subjective Physical Therapy Visit Type Type Initial Evaluation Visit Start Time 11:15 Visit Stop Time 11:41 Total Visit Minutes 26 Number of SKI PRODUCTION SUPERVISOR Visits 0 Physical Therapy Visit Comments Patient Comments agreeable to do PT M4 PT-IP Mobility and Gait Start: 04/30/22 12:49 Freq: NEEDED Status: Active Protocol: Document 04/30/22 11:15 AB (Rec: 04/30/22 12:58 AB [id number]) PT-Bed Mobility Assessment Supine to Sit Supine to Sit Standby Assistance PT-Transfer Assessment Sit to and From Stand Sit to and from Stand Contact Guard Assistance,1 Person Assistance,Use of Upper Extremities Equipment Transfer Assistive Device Gait Belt,Front Wheeled Walker Orthotic/Prosthetic Devices or Brace: No Transfers Transfer Destination Chair Transfer Technique ambulated Transfer Ability Level of Assist Minimal Assistance,1 Person Assistance,Use of Upper Extremities Comments Mobility Comments O2 sat at RA at rest: 90-92%. completed supine to sit SBA. c/p dizziness. BP: 145/63. O2 sat 90%. (+) SOB. completed sit to stand CGA and ambulated in room ~ 20 ft using FWW min A. presents with unsteady gait with decrease LE elevation and step length. c/o dizziness/lightheadedness and needs to sit down. O2 sat checked: 89%. cued for deep breathing. O2 sat increased to 90% in ~ 15 sec. pt agreed to sit up on the chair for lunch. positioned table and call light within reach. informed pt regarding SNF recommendation at this time and pt agreed. Gait Assessment Gait Gait Assistance Required: Minimum Assistance Distance (Feet) 20 Able to Maintain Weight Bearing Status Yes During Gait Assistive Devices Assistive Device Gait Belt,Front Wheeled Walker Orthotic/Prosthetic Devices or Brace: No Gait Deviations General Gait Pattern Decreased Stride Length, Decreased Feet Clearance,Step- to Gait Factors Limiting Gait Function Factors Limiting Gait Function Decreased Activity Tolerance, Decreased Strength,Limited Range of Motion,Poor Balance, Poor Safety Awareness, Respiratory Distress PT-Balance Assessment Sitting Balance and Reactions Static Sitting Balance Ability Normal Dynamic Sitting Balance Ability Good Standing Balance and Reactions Static Standing Balance Ability Fair Dynamic Standing Balance Ability Fair Device Used FWW M5 PT-IP Objective Assessments Start: 04/30/22 12:49 Freq: NEEDED Status: Active Protocol: Document 04/30/22 11:15 AB (Rec: 04/30/22 12:58 AB [id number]) Orientation Orientation/Cognition Level of Alertness Alert Orientation Name,Situation Language Function Ability No Deficits Noted Safety Awareness Decreased Safety Awareness Memory Description No Deficits Noted Gross Range of Motion Lower Extremity ROM Assessment Within Functional Limits Strength Lower Extremity Strength Hip 4-/5 Knee 4-/5 Coordination Assessment Gross Coordination Gross Coordination WNL Sensation Assessment Sensation Gross Sensation WNL Muscle Tone Muscle Tone WNL Yes M6 PT-IP Treatment Start: 04/30/22 12:49 Freq: NEEDED Status: Active Protocol: Document 04/30/22 11:15 AB (Rec: 04/30/22 12:58 AB [id number]) Physical Therapy Treatment Education Education Provided Safety M7 PT-IP Assessment and Plan Start: 04/30/22 12:49 Freq: NEEDED Status: Active Protocol: Document 04/30/22 11:15 AB (Rec: 04/30/22 12:58 AB [id number]) PT Summary Assessment and Plan Potential Rehabilitation Potential Fair Status of Condition at Evaluation Evolving Summary Impairments Pain,ROM,Strength,Balance, Coordination,Sensation,Tone, Cognition,Bed Mobility, Transfers,Gait,Activity Tolerance Assessment Summary Pt requiring min A with ambulation using FWW and has decrease activity tolerance with (+) SOB and O2 sat decreased to 89%. pt will require SNF rehab at this time to improve overall strength and mobility independence. will continue to assess progress. Goals Bed Mobility Goal Independent Transfer Goal Independent,Front Wheeled Walker Gait Goal Independent,Front Wheel Walker Gait Distance 200 Other Goals improve transfers and ambulation without AD 150 ft SBA up/down 1 step using FWW/ without AD SBA Days to Meet Goals 10 Frequency of Treatment Frequency Of Treatment Once a Day Treatment Plan Physical Therapy Treatment Plan Bed Mobility Training,Transfer Training,Gait Training, Therapeutic Exercise,Balance Retraining,Discharge Planning, Hot or Cold Pack,Neuromuscular Re-ed,Coordination Retraining Precautions Other Precautions O2 sat Recommendations To Nursing Amount of Assist Needed 1 Person Assist Discharge Recommendations PT Discharge Recommendations SNF Rehab Equipment Needed for Home Before FWW if pt goes home and not Discharge safe without AD Transportation Needs at Discharge Private Vehicle,Wheelchair/ Cabulance
[2022-04-30 12:05] VITALS: BP 153/72; PULSE 62; RESP 20; TEMP 36.2; O2SAT 93
--- NOTE | 2022-04-30 14:15 | OT.IP.EVAL ---
Past Medical History (Last Reviewed 04/29/22 @ 01:45 by FLORENTIN Roca) CKD (chronic kidney disease) stage 4, GFR 15-29 ml/min Diabetes type 2, controlled Essential hypertension Surgical History (Last Reviewed 04/29/22 @ 01:45 by FLORENTIN Roca) Hx of hysterectomy Hx of tonsillectomy Occupational Therapy Inpatient Evaluation/Re-Eval M1 PT/OT-IP Prior Functional Status Start: 04/30/22 12:49 Freq: NEEDED Status: Active Protocol: Document 04/30/22 13:21 [facility] (Rec: 04/30/22 14:41 [facility] [id number]) Medical Review Prior Functional Status Medical History Reviewed Yes Communication able to make needs known Mobility and Gait pt stated that she is independent with all mobilities and ambulation without AD Activities of Daily Living and IADL's Pt states in the past month has been needing increased time for ADL and IADl needs and this past week needing 3 times as long to complete getting dressed and showering. Social History Household Members none Living Arrangements House Number of Floors (Floors) One Floor Number of Stairs To Enter/Railing? 1 step to enter Home Environment High Toilet,Walk in Shower Home Equipment Hand Held Shower,Grab Bars Near Toilet,Grab Bars In Shower M2 OT-IP Current Condition Start: 04/30/22 14:16 Freq: Status: Active Protocol: Document 04/30/22 13:21 [facility] (Rec: 04/30/22 14:41 [facility] [id number]) Occupational Therapy Current Condition Current Condition Evaluation Date 04/30/22 Treatment Diagnosis CHF exacerbation Diagnosis Onset Date 04/28/22 M3 OT- IP Subjective and Pain Start: 04/30/22 14:16 Freq: Status: Active Protocol: Document 04/30/22 13:21 [facility] (Rec: 04/30/22 14:41 [facility] [id number]) OT- Subjective Occupational Therapy Visit Type Type Initial Evaluation Visit Start Time 13:21 Visit Stop Time 14:15 Total Visit Minutes 53 Occupational Therapy Visit Comments Patient Comments Pt agreed to get up to use the bathroom and wanting to brush her teeth. Patient/Caregiver Goals TO go to skilled rehab prior to gong home. OT Pain Assessment Pain When Pain Assessed At Rest Pain Present Pain Present Denied Pain M4 OT- IP ADL's Start: 04/30/22 14:16 Freq: Status: Active Protocol: Document 04/30/22 13:21 [facility] (Rec: 04/30/22 14:41 [facility] [id number]) OT [id number] Comments OT Self-Feeding Comments NOt at meal time, pt states having no issues. OT ADL-Grooming General Evaluation Grooming Ability Standby Assistance Areas Needing Assistance Retrieving/Set-up of Grooming Items Comments OT Grooming Comments Able to do while standing with FWW in front of the sink. OT ADL-Oral Care General Eval Oral Care Ability Independent Comments Oral Care Comments WHile standing. OT ADL-Dressing General Eval Lower Body Dressing Ability Minimal Assistance Comments OT Dressing Comments At this time will need assist to help get clothing over her feet. OT ADL-Toileting General Evaluation Toileting Ability Minimal Assistance Areas Needing Assistance Manage Clothing,Perform Perineal Hygiene Comments OT Toileting Comments Pt wiping and needing cues to thoroughness. OT ADL-Bathing Comments OT Bathing Comments Pt too tired to shower at this time. M5 OT- IP IADL's Start: 04/30/22 14:16 Freq: Status: Active Protocol: Document 04/30/22 13:21 [facility] (Rec: 04/30/22 14:41 [facility] [id number]) OT-Instrumental Activities of Daily Living Home Safety Awareness Awareness of Need for Assistance at Home Good Awareness Ability to Problem Solve Emergency Able to Problem Solve Situations Medication Management Medication Management Comments Pt states uses pill organizer at home. Money Management Money Management Comments Pt states does her own finances at this time. Meal Preparation Meal Preparation Comments Lately pt has gotten so weak that her daughter was bringing in food for her and doing her shopping. Lead Pl Sql Developer Lead Pl Sql Developer Comments Pt has been too tired to do her IADL needs. Driving Driving Comments Pt states has not driven in the past week due to being too tired and short of breath. M6 OT- IP Functional Cognition Start: 04/30/22 14:16 Freq: Status: Active Protocol: Document 04/30/22 13:21 [facility] (Rec: 04/30/22 14:41 [facility] [id number]) Cognitive Factors Limiting Selfcare Function Cognitive Ability Level of Alertness Alert Patient Orientation Name,Age,Birthday,Month,Date, Year,Day of Week,Place, Situation Attention Span Ability Capable of Focused Attention, Capable of Sustained Attention Ability to Follow Commands Able to Follow Multi-Step Commands Cognitive Comments Cognitive Assessment Comments Pt just needing initial vc for FWW safety. Pt needing cues for hygiene completeness. OT- Vision and Hearing OT- Hearing Assessment OT- Hearing Assessment WFL OT- Vision Assessment Visual Acuity Glasses For Reading Visual Attentiveness WFL Occular Pursuits WFL Visual Convergence WFL Visual Maguire WFL Diplopia Absent M7 OT- IP Mobility and Balance Start: 04/30/22 14:16 Freq: Status: Active Protocol: Document 04/30/22 13:21 [facility] (Rec: 04/30/22 14:41 [facility] [id number]) OT-Transfer Assessment Sit to and From Stand Sit to and from Stand Standby Assistance,Contact Guard Assistance Transfers Transfer Ability Standby Assistance,Contact Guard Assistance Technique Transfer Destination Bed,Chair,Toilet Transfer Technique Stand Step Pivot Devices Transfer Assistive Devices Gait Belt,Front Wheeled Walker Comments Mobility Comments Pt on RA and O2 at 92% and after getting back from the bathroom dropped to 90%. After a rest break, a few minutes O2 increased to 94%. Pt wanting to get up to the sink to brush her teeth with FWW O2 afterwards 91%. At this time pt needing to use the FWW for steadiness. Prior pt did not use a device but at times would hold surfaces due to her meniere's. OT- Balance Assessment Sitting Balance and Reactions Static Sitting Balance Ability Good Dynamic Sitting Balance Ability Fair Standing Balance and Reactions Static Standing Balance Ability Fair Dynamic Standing Balance Ability Fair M8 OT- IP Objective Assessments Start: 04/30/22 14:16 Freq: Status: Active Protocol: Document 04/30/22 13:21 [facility] (Rec: 04/30/22 14:41 [facility] [id number]) OT Gross Range of Motion Upper Extremity Range of Motion Assessment Within Functional Limits OT Strength Comments Strength Comments RUE 4-/5 and LUE 4/5 OT- Coordination Assessment Comments Coordination Comments Slightly off for both fingers. OT-Muscle Tone Assessment Muscle Tone WNL Yes OT Sensation Assessment Comments Summary Comments Intact for light touch. M9 OT- IP Assessment and Plan Start: 04/30/22 14:16 Freq: Status: Active Protocol: Document 04/30/22 13:21 [facility] (Rec: 04/30/22 14:41 [facility] [id number]) OT Summary Assessment and Plan Potential Rehabilitation Potential Good Analytic Complexity at Evaluation Low Summary OT Impairments Balance,Functional Mobility, Grooming,Dressing,Toileting, Bathing,Toilet Transfers, Shower Transfers,Activity Tolerance Progress Towards Goals Progressing Toward Goals,Slow Progress due to Activity Tolerance Assessment Summary Pt mod complexity and main barriers are decreased activity tolerance, endurance and now needing use of FWW for mobility needs and needing one person assist for ADL needs. Pt states in the past month has been getting more weak and recent week unable to drive, do any on her IADL's and only doing minimal ADl needs. Pt will greatly benefit from skilled rehab to be able to get back to her prior level of care being completely independent with all her ADL, IADl and taking care of her elderly dog. Goals Grooming Goal Independent Dressing Goal Independent Toileting Goal Independent Bathing Goal Independent Toilet Transfer Goal Independent Shower Transfer Goal Independent Patient/Caregiver Education Goal Demonstrate Energy Conservation and Pacing Days to Meet Goals 15 Frequency of Treatment Frequency Of Treatment Once a Day Treatment Plan OT Treatment Plan ADL Training,Functional Mobility,Patient/Family Education,Discharge Planning Other Treatment Recommendations and Next shower Treatment Focus Discharge Recommendations OT Discharge Recommendations SNF Rehab Transportation Needs at Discharge Wheelchair/Cabulance
--- NOTE | 2022-04-30 15:25 | CM.DPNOTE ---
Addendum entered by ABDIAS Collins 05/01/22 14:58: ADD: [facility] unable to accept patient at this time d/t vaccination status, no iso beds. Spoke w/patient and w/therapy team today- patient cleared for DC home, likely tomorrow, and patient agreeable to this. Patient requests HH referral, no agency preference Placed call to [facility], they do not serve [place] Placed call to [facility] and she expects openings the beginning of the week. Faxed HH referral to [facility] to include H+P, completed F2F and HH order. Plan: DC home w/friend or dtr to transport, likely Tuesday, w/[facility] RN/PT/OT to follow, patient denies need for QUALITY CONTROL MICROBIOLOGIST JW Original Note: DCP Note According to therapies, recommendation is for SNF upon DC. Met w/patient to review and she is agreeable, requests [facility]. LYNNETTE Dawn, kindly placed call to November at [facility] to discuss referral; PASRR completed and now awaiting CB from [facility] May need to broaden SNF search. Alternatively, patient may need to discharge home w/family and HH if she improves w/therapies Following closely for coordination of DCP JW
[2022-04-30 18:05] VITALS: BP 154/76; PULSE 64; RESP 20; O2SAT 94
[2022-04-30] MEDS: ATORVASTATIN 20 MG TABLET 10 MG PO (20:28)
[2022-04-30 20:34] VITALS: BP 157/73; PULSE 69
[2022-05-01] VITALS (8 sets, daily range): BP systolic 130–177; BP diastolic 58–76; PULSE 70–77; RESP 16–19; TEMP 36.6–37.2; O2SAT 92–94
[2022-05-01] MEDS: VANCOMYCIN 125 MG CAPSULE PO ×4 (05:20→22:29)
[2022-05-01] MEDS: LEVOTHYROXINE 75 MCG TABLET PO (05:20)
[2022-05-01 07:15] LABS: Add Manual Diff / Slide Review NO; Basophils Absolute Auto 100 /uL (0-100); Basophils Percent Auto 0.9 % (0-2); Eosinophils Absolute Auto 400 /uL (0-450); Eosinophils Percent Auto 3.9 % (2-4); Hematocrit 29.1 % (36-46); Hemoglobin 9.5 g/dL (12.0-16.0); Lymphocytes Absolute Auto 1800 /uL (1100-4500); Lymphocytes Percent Auto 18.4 % (25-40); Mean Corpuscular HGB Conc 32.8 % (30-36); Mean Corpuscular Hemoglobin 28.5 PG (26-34); Mean Corpuscular Volume 86.9 fL (80-100); Monocytes Absolute Auto 900 /uL (0-900); Monocytes Percent Auto 9.5 % (3-14); Neutrophils Absolute Auto 6600 /uL (1500-7000); Neutrophils Percent Auto 67.3 % (50-75); Platelet Count 240 X10^3/uL (150-400); Red Blood Cell Count 3.35 X10^6/uL (4.0-5.2); Red Cell Distribution Width 14.8 % (11.6-14.8); White Blood Cell Count 9.8 X10^3/uL (4.5-11.0)
[2022-05-01 07:28] LABS: Alanine Aminotransferase 15 IU/L (<35); Albumin 3.2 g/dL (3.5-5.0); Albumin Globulin Ratio 1.1 (1.0-2.8); Alkaline Phosphatase 79 U/L (38-126); Aspartate Aminotransferase 21 IU/L (14-36); BUN Creatinine Ratio 23.8 (6-22); Bilirubin Total 0.2 mg/dL (0.2-1.3); Blood Urea Nitrogen 56 mg/dL (7-17); Calcium 8.3 mg/dL (8.4-10.2); Carbon Dioxide 23 mmol/L (22-32); Chloride 108 mmol/L (98-107); Estimated Glomerular Filt Rate 21 mL/min (>60); Glucose 61 mg/dL (80-110); HEMOLYSIS < 15 (0-50); Potassium 4.5 mmol/L (3.4-5.1); Sodium 142 mmol/L (137-145); Total Protein 6.2 g/dL (6.3-8.2)
[2022-05-01] MEDS: LOSARTAN 25 MG TABLET PO (08:00)
[2022-05-01] MEDS: ASPIRIN EC 81 MG TABLET PO (08:00)
[2022-05-01] MEDS: INSULIN GLARGINE 100 UNIT/ML 3ML PEN 50 UNIT SUBCUT (08:00)
[2022-05-01] MEDS: carvediloL 12.5 MG TABLET PO ×2 (08:08→20:18)
[2022-05-01] MEDS: FUROSEMIDE 40 MG/4 ML VIAL IV ×2 (08:09→16:22)
[2022-05-01] MEDS: SODIUM CHLORIDE 0.9% FLUSH 10 ML IV ×2 (08:09→20:35)
[2022-05-01] MEDS: HEPARIN 5,000 UNIT/ML VIAL 5000 UNIT SUBCUT ×2 (08:09→20:12)
[2022-05-01] MEDS: ONDANSETRON 4 MG/2 ML INJ IV ×2 (10:49→20:12)
--- NOTE | 2022-05-01 11:47 | PC.NURSE ---
0751: BG 60. 4oz orange juice given with improvement. Per Dr. Currie still give Lantus, 45 units.
--- NOTE | 2022-05-01 12:08 | PT.IPTN ---
Current Diagnoses Acute diastolic (congestive) heart failure (04/28/22) Physical Therapy Treatment Note M2 PT-IP Current Condition Start: 04/30/22 12:49 Freq: NEEDED Status: Active Protocol: Document 04/30/22 11:15 AB (Rec: 04/30/22 12:58 AB [id number]) Physical Therapy Current Condition Current Condition Evaluation Date 04/30/22 Treatment Diagnosis CHF; difficulty in walking Onset Date 04/28/22 M3 PT-IP Subjective Start: 04/30/22 12:49 Freq: NEEDED Status: Active Protocol: Document 05/01/22 11:48 KS (Rec: 05/01/22 12:26 KS [id number]) Subjective Physical Therapy Visit Type Type Treatment Note Visit Start Time 11:48 Visit Stop Time 12:08 Total Visit Minutes 20 Number of ACID RECOVERY OPERATOR Visits 1 Physical Therapy Visit Comments Patient Comments Pt lunch already arrived, but agreeable to work w/ therapy. M4 PT-IP Mobility and Gait Start: 04/30/22 12:49 Freq: NEEDED Status: Active Protocol: Document 05/01/22 11:48 KS (Rec: 05/01/22 12:26 KS [id number]) PT-Transfer Assessment Sit to and From Stand Sit to and from Stand Contact Guard Assistance,1 Person Assistance,Use of Upper Extremities Equipment Transfer Assistive Device Gait Belt,Front Wheeled Walker Orthotic/Prosthetic Devices or Brace: No Transfers Transfer Destination Bed Transfer Technique ambulated Transfer Ability Level of Assist Standby Assistance,Contact Guard Assistance,1 Person Assistance,Use of Upper Extremities Comments Mobility Comments Pt sitting EOB upon arrival, agreeable to assess ambulation . CGA for sit<>stand from bed w/ FWW. Pt ambulated ~40 ft w/ FWW SBA to CGA, no LOB. Pt does not use FWW at baseline, trialed ambulatio w/o AD ~15 ft and pt was slightly unsteady requiring CGA. Recommended use of FWW for pt and she is agreeable. She returned to sitting EOB w/ call light in reach. Gait Assessment Gait Gait Assistance Required: Contact Guard Assist,1 Person Assist Distance (Feet) 40 Able to Maintain Weight Bearing Status Yes During Gait Assistive Devices Assistive Device None,Gait Belt,Front Wheeled Walker Orthotic/Prosthetic Devices or Brace: No Gait Deviations General Gait Pattern Decreased Stride Length, Decreased Feet Clearance,Step- to Gait Factors Limiting Gait Function Factors Limiting Gait Function Decreased Activity Tolerance, Decreased Strength,Limited Range of Motion,Poor Balance, Poor Safety Awareness, Respiratory Distress Comments Gait Comments More stable w/ FWW, 15 ft w/o AD required CGA and her step length and balance decreased and she began reaching for furniture for support. PT-Balance Assessment Sitting Balance and Reactions Static Sitting Balance Ability Normal Dynamic Sitting Balance Ability Good Standing Balance and Reactions Static Standing Balance Ability Fair Dynamic Standing Balance Ability Fair Device Used FWW M5 PT-IP Objective Assessments Start: 04/30/22 12:49 Freq: NEEDED Status: Active Protocol: Document 04/30/22 11:15 AB (Rec: 04/30/22 12:58 AB [id number]) Orientation Orientation/Cognition Level of Alertness Alert Orientation Name,Situation Language Function Ability No Deficits Noted Safety Awareness Decreased Safety Awareness Memory Description No Deficits Noted Gross Range of Motion Lower Extremity ROM Assessment Within Functional Limits Strength Lower Extremity Strength Hip 4-/5 Knee 4-/5 Coordination Assessment Gross Coordination Gross Coordination WNL Sensation Assessment Sensation Gross Sensation WNL Muscle Tone Muscle Tone WNL Yes M6 PT-IP Treatment Start: 04/30/22 12:49 Freq: NEEDED Status: Active Protocol: Document 05/01/22 11:48 KS (Rec: 05/01/22 12:26 KS [id number]) Physical Therapy Treatment Education Education Provided Safety Other Treatments Other Treatment Performed Discussed at home safety, use of FWW, Home health. Pt lives alone and needs increased assistance to be safe. M7 PT-IP Assessment and Plan Start: 04/30/22 12:49 Freq: NEEDED Status: Active Protocol: Document 05/01/22 11:48 KS (Rec: 05/01/22 12:26 KS [id number]) PT Summary Assessment and Plan Potential Rehabilitation Potential Fair Summary Impairments Pain,ROM,Strength,Balance, Coordination,Sensation,Tone, Cognition,Bed Mobility, Transfers,Gait,Activity Tolerance Progress Towards Goals Slow Progress due to Activity Tolerance Assessment Summary Pt limited by low activity tolerance and weakness, able to ambulate w/ FWW SBA and w/o CGA but is unsteady and at risk for falls due to poor balance. Denied dizziness and O2 low 90s. Recommended FWW for safety and energy conservation, pt agreeable. Pt lives alone and to be safe really needs increased assistance as she does not have adequate family support at this time. Will continue to assess progress. Pt will at least need increased assistance and home health. Goals Bed Mobility Goal Independent Transfer Goal Independent,Front Wheeled Walker Gait Goal Independent,Front Wheel Walker Gait Distance 200 Other Goals improve transfers and ambulation without AD 150 ft SBA up/down 1 step using FWW/ without AD SBA Days to Meet Goals 10 Frequency of Treatment Frequency Of Treatment Once a Day Treatment Plan Physical Therapy Treatment Plan Bed Mobility Training,Transfer Training,Gait Training, Therapeutic Exercise,Balance Retraining,Discharge Planning, Hot or Cold Pack,Neuromuscular Re-ed,Coordination Retraining Other Recommendations and Next Treatment Increase ambulation distance Focus Precautions Other Precautions O2 sat Recommendations To Nursing Amount of Assist Needed 1 Person Assist Discharge Recommendations PT Discharge Recommendations Home with Assistance,Home with 17/01 Assist Available,Home Health,Home vs SNF Equipment Needed for Home Before FWW for home use Discharge Transportation Needs at Discharge Private Vehicle,Wheelchair/ Cabulance
--- NOTE | 2022-05-01 12:47 | P.PN_ITS ---
Subjective Subjective Date Patient Seen: 05/01/22 Interval history: Continues to feel short of breath with minimal exertion though it is slightly better today. Her leg swelling is better, bowel movements are more formed today again as well. Exam Vital Signs (past 8 hours): - 05/01/22 06:00 05/01/22 07:00 05/01/22 08:00 Temperature 98.7 F Pulse Rate 72 75 Respiratory Rate 19 Blood Pressure 146/65 H 138/59 L Pulse Oximetry 92 Oxygen Delivery Method Room Air Oxygen Flow Rate 05/01/22 08:08 05/01/22 08:54 Temperature 98.1 F Pulse Rate 75 75 Respiratory Rate 17 Blood Pressure 138/59 L 136/58 L Pulse Oximetry 94 Oxygen Delivery Method Oxygen Flow Rate 0 Oxygen Delivery Method Room Air Oxygen Flow Rate 0 Narrative Exam Narrative: Gen: WDWN 76 y.o. female, fatigued HEENT: normocephalic, atraumatic, conjunctiva clear, sclera non-icteric, oral mucosa pink and moist Neck: supple, full ROM, no JVD, trachea is midline Resp: Lungs CTA, non-labored breathing CV: RRR, no murmur or rubs Abd: soft, non-tender, normoactive BTs Skin: no lesions or rashes, dry and intact Neuro: Alert and oriented X 4 w/no focal deficits. Speech clear and coherent. Extremities: Bilateral trace to 1+ non-pitting edema, no joint effusions Psyche: normal mood and affect. Objective Labs Result Diagrams: 05/01/22 06:52 05/01/22 06:52 Labs: Laboratory Results - last 24 hr 05/01/22 05/01/22 06:52 06:52 WBC 9.8 RBC 3.35 L Hgb 9.5 L Hct 29.1 L MCV 86.9 MCH 28.5 MCHC 32.8 RDW 14.8 Plt Count 240 Neut % (Auto) 67.3 Lymph % (Auto) 18.4 L Calloway % (Auto) 9.5 Eos % (Auto) 3.9 Baso % (Auto) 0.9 Neut # (Auto) 6600 Lymph # (Auto) 1800 Calloway # (Auto) 900 Eos # (Auto) 400 Baso # (Auto) 100 Sodium 142 Potassium 4.5 Chloride 108 H Carbon Dioxide 23 BUN 56 H Creatinine 2.35 H Estimated GFR 21 L BUN/Creatinine Ratio 23.8 H Glucose 61 L Calcium 8.3 L Total Bilirubin 0.2 AST 21 ALT 15 Alkaline Phosphatase 79 Total Protein 6.2 L Albumin 3.2 L Globulin 3.0 Albumin/Globulin Ratio 1.1 PFSH Medical History CKD (chronic kidney disease) stage 4, GFR 15-29 ml/min Diabetes type 2, controlled Essential hypertension Surgical History Hx of hysterectomy Hx of tonsillectomy Family History Mother Congestive heart failure Myocardial infarct Father Congestive heart failure Cardiac arrest Social History household members: none Smoking Status: Never smoker alcohol intake: never Assessment & Plan Assessment & Plan narrative: Merline Robbins is admitted for a CHF exacerbation Acute diastolic heart failure, present on admission - TTE with normal EF and grade II diastolic dysfunction - continue diuresis with furosemide IV 40 mg BID, improved slightly today but remains weak and dyspnic. - PT / OT evaluation recommended SNF based on initial eval given dyspnea, will continue diuresis to see if improvement. - strict intake and output and daily weights MAYO on chronic kidney disease, unknown stage - continue to follow creatinine, unknown baseline at this time. Creatinine 2.67 on admission now stable at 2.35 today. HTN - will need medication adjustments given HTN and need for diuresis. Currently have held amlodipine and hydralazine in favor of diuretic, will continue coreg and losartan. Dyslipidemia - continue home medications. Anemia - unclear chronicity, continue to follow. Likely chronic and secondary to chronic inflammation / CKD. Hg stable around 9 here thus far. No need for further trend but recommend continued outpatient follow up with primary care provider. DM - replaced home insulin with basal and bolus dosing, will adjust as needed. Asymptomatic bacteruria. - no treatment necessary for + UA. VTE Prophylaxis: HSQ BID Dispo: probable d/c to home vs SNF, timing in 1-3 days depending on symptoms and PT / OT evaluations. Code status: DNR/DNI as discussed with the patient who identifies Her daughter Sully as her surrogate and POA. [X] I have utilized all available immediate resources to obtain, update, or review of the patient's current medications VTE Deep Vein Thrombosis/Pulmonary Embolism Present on Admission: No MIPS - Admit I confirm the patient?s Advance Care Plan is present, Code status is documented, Surrogate decision maker is in patient?s record: Yes MIPS - DC The patient has current or prior documentation of left ventricular ejection fraction (LVEF) less than 40%, or moderate or severely depressed left ventricular systolic function.: No COVID-19 COVID-19 status: Negative Result date/Date tested (Pos, Neg/Pending): 04/28/22 Time Spent With Patient Critical Care time: I spent a total of [] minutes of critical care time on this patient's care today; this time is exclusive of procedural time.
[2022-05-01 15:13] LABS: C difficie Toxins A and B, EIA Negative (Negative)
[2022-05-01] MEDS: INSULIN LISPRO 100 UNIT/ML 3ML VIAL SUBCUT (17:16)
[2022-05-01] MEDS: ATORVASTATIN 20 MG TABLET 10 MG PO (20:12)
[2022-05-02] VITALS: BP 151/66; PULSE 69; RESP 17; TEMP 37; O2SAT 91
[2022-05-02 05:00] VITALS: BP 166/75; PULSE 67; RESP 17; TEMP 36.2; O2SAT 95
[2022-05-02] MEDS: LEVOTHYROXINE 75 MCG TABLET PO (05:17)
[2022-05-02] MEDS: VANCOMYCIN 125 MG CAPSULE PO ×3 (05:17→16:50)
[2022-05-02] MEDS: FUROSEMIDE 40 MG/4 ML VIAL IV (08:10)
[2022-05-02] MEDS: ASPIRIN EC 81 MG TABLET PO (08:10)
[2022-05-02] MEDS: HEPARIN 5,000 UNIT/ML VIAL 5000 UNIT SUBCUT (08:10)
[2022-05-02] MEDS: INSULIN GLARGINE 100 UNIT/ML 3ML PEN 50 UNIT SUBCUT (08:11)
[2022-05-02 08:17] VITALS: BP 179/76; PULSE 70; RESP 14
[2022-05-02] MEDS: SODIUM CHLORIDE 0.9% FLUSH 10 ML IV (08:17)
[2022-05-02] MEDS: carvediloL 12.5 MG TABLET PO (08:17)
[2022-05-02] MEDS: LOSARTAN 25 MG TABLET PO (08:17)
[2022-05-02 09:23] VITALS: TEMP 36.5; O2SAT 96
--- NOTE | 2022-05-02 10:14 | CM.DPC ---
DCP Cont: Patient is discharging home today. Patient indicated, family will pick her up, but not until later. Spoke to patient from her door, and let her know that this DC Clothes Ironer will contact [facility] since she's discharging home today. Did speak to Stephanie at [facility], and updated her that patient is discharging home today. She will get RN, P.T, O.T. Stephanie indicated that there is a chance that they can see patient on Tuesday if they get the information processed in time, otherwise, they can open her on Tuesday. Will fax over orders and DC Summary. Gave patient the [facility] brochure, and a copy of her IMM. P: Patient is to discharge home today. Ivy Paige RN/Import Customer Service Manager
[2022-05-02] MEDS: ONDANSETRON 4 MG/2 ML INJ IV (10:16)
--- NOTE | 2022-05-02 13:06 | P.DS_ITS ---
History of Present Illness History of Present Illness Date Patient Seen: 04/28/22 Time Patient Seen: 22:30 Chief complaint: CHF exacerbation Narrative: Per admitting provider: Merline Robbins is a 76 y.o. female with Diabetes type 2, hypertension, hypothyroidism, and hyperlipidemia presented with a complaint of a 2 week history of shortness of breath, chills, no appetite, fatigue, weakness, nausea w/o vomiting, chills and clammy on exertion, denies fever, chest pain, no fever, orthnopnea, reported to desat into the 80s with exertion in the ED. She also co mplained of pain and swelling of her legs. Was given IV torsemide in the ED. States she usually has urinary frequency though this has been ongoing. She went to her PCP and with her complaints, they directed her to the ED for further evaluation. She sees Dr. Harry, business solution analyst. Chest xray reports finding suggestive of CHF with pulmonary vascular congestion and mild pulmonary edema.? Trace bilateral pleural effusion.. U/S of bilateral lower extremity was negative for a DVT. She is afebrile, blood pressure 164/75, heart rate 72, respiratory rate 20 oxygen saturation 93% on room air she weighs 99.3 kg with a BMI of 37.5. She is mildly anemic with a hemoglobin and hematocrit of 9.9 and 30.4 respectively, her D-dimer was mildly elevated at 874. Creatinine is 2.67 BUN 67 with an EGFR of 18 her A1c is 6.0, she had a normal lactate proBNP is 1790 COVID-19 and influenza panel are negative. FH: Reviewed with the patient and documented as below. Discharge Providers Provider Date of admission: 04/28/22 20:56 Discharge Date: 05/02/22 Primary care physician: Bethany Orozco PA-C Consults: 04/28/22 21:25 Consult to Respiratory Therapy Evaluate & Treat Comment: dyspnea on exertion Physician Instructions: Evaluate and treat 04/30/22 10:44 Consult to Occupational Therapy Evaluate & Treat Comment: Physician Instructions: Evaluate and treat Consult to Physical Therapy Evaluate & Treat Comment: Physician Instructions: Evaluate and Treat 05/01/22 13:47 Consult to Home Health Routine Comment: Reason For Exam: Home Health Upon DC Consult to Physical Therapy Evaluate & Treat Comment: Physician Instructions: FWW For Home Use 05/02/22 14:30 Consult to Home Health Routine Comment: Reason For Exam: FWW for home use Discharge provider: Aaron Bishop MD Summary Hospital Course Discharge Diagnosis: 1. Acute diastolic heart failure 2. MAYO on CKD 3. HYpertension 4. Hyperlipidemia 5. Anemia 6. Type 2 Diabetes on insulin 7. C. diff colitis Hospital Course: Ms. Robbins was admitted with shortness of breath. She was requiring oxygen initially. She was found initially to have an elevated creatinine. She was place d on IV lasix. ECHO showed perserved EF. She diuresed well and on day of discharge she had no shortness of breath and was not requiring oxygen. She was discharged with a slightly higher dose of her oral diuretic. She was encouraged to follow up with her PCP within a few days to make sure she was continuing to improve. She also noted diarrhea and c diff study resulted as positive. She was started on oral vancomycin and discharged to complete a 10 day course of antibiotics. Exam Vital Signs (past 8 hours): Oxygen Delivery Method Room Air Oxygen Flow Rate 0 Narrative Exam Narrative: Gen: no acute distress PULM: clear bilaterally Extremities:trace edema Objective Labs Result Diagrams: 05/01/22 06:52 05/01/22 06:52 [facility] Medical History CKD (chronic kidney disease) stage 4, GFR 15-29 ml/min Diabetes type 2, controlled Essential hypertension Surgical History Hx of hysterectomy Hx of tonsillectomy Family History Mother Congestive heart failure Myocardial infarct Father Congestive heart failure Cardiac arrest Social History household members: none Smoking Status: Never smoker alcohol intake: never Discharge Plan Discharge Plan Patient Disposition: Home Provider Discharge Comment: Ms. Robbins came in to the hospital with a congestive heart failure exacerbation. She improved with IV lasix, and her home dose of torsemide was increased at discharge. She had c diff infection and was given antibiotics for this. She should follow up with her PCP this week. Discharge orders & Medications Prescriptions: New vancomycin 125 mg Capsule 125 mg PO Q6H Qty: 28 0RF torsemide 20 mg tablet 40 mg PO BID Qty: 120 0RF Continued carvedilol 12.5 mg tablet 12.5 mg PO BID hydralazine 25 mg tablet 50 mg PO TID Label Comments: TAKE 2 TABLETS BY MOUTH THREE TIMES DAILY amlodipine 5 mg tablet 5 mg PO DAILY Label Comments: TAKE 1 TABLET BY MOUTH DAILY levothyroxine 75 mcg Tablet 75 mcg PO DAILY fluticasone propionate 50 mcg/actuation spray,suspension 50 mcg INTRANASAL BID Label Comments: SHAKE LIQUID AND USE 1 SPRAY IN EACH NOSTRIL TWICE DAILY insulin aspart U-100 [Novolog Flexpen U-100 Insulin] 100 unit/mL (3 mL) insulin pen See Rx Instructions .ROUTE .COMPLEX Label Comments: ADMINISTER 12 TO 18 UNITS UNDER THE SKIN BEFORE MEALS Rx Instructions: ADMINISTER 12 TO 18 UNITS UNDER THE SKIN BEFORE MEALS rosuvastatin 5 mg tablet 5 mg PO QPM Label Comments: TAKE 1 TABLET BY MOUTH EVERY EVENING FOR HIGH CHOLESTEROL Soliqua 100/33 100 unit-33 mcg/mL insulin pen 50 unit SUBCUT DAILY Label Comments: ADMINISTER 50 UNITS UNDER THE SKIN EVERY DAY losartan 25 mg tablet 25 mg PO DAILY Qty: 30 0RF Discontinued torsemide 20 mg tablet See Rx Instructions .ROUTE .COMPLEX Label Comments: TAKE 2 TABLETS BY MOUTH IN THE MORNING AND 1 TABLET IN THE EVENING Rx Instructions: TAKE 2 TABLETS BY MOUTH IN THE MORNING AND 1 TABLET IN THE EVENING Follow up/Referrals: Bethany Orozco PA-C [Primary Care Provider] - 3-5 Days (hospitalized for chf and c diff) Diet/Activity/Treatments Diet: Low-sodium Diet comment: 2L fluid daily Visit Report/Discharge Packet Instructions: Heart Failure, DI for Heart Failure, Fluid Restricted Diet, Clostridioides (Clostridium) difficile Infection Discharge Data Primary Care Provider: Bethany Orozco
--- NOTE | 2022-05-02 14:15 | PT.IPTN ---
Current Diagnoses Acute diastolic (congestive) heart failure (04/28/22) Physical Therapy Treatment Note M2 PT-IP Current Condition Start: 04/30/22 12:49 Freq: NEEDED Status: Active Protocol: Document 04/30/22 11:15 AB (Rec: 04/30/22 12:58 AB [id number]) Physical Therapy Current Condition Current Condition Evaluation Date 04/30/22 Treatment Diagnosis CHF; difficulty in walking Onset Date 04/28/22 M3 PT-IP Subjective Start: 04/30/22 12:49 Freq: NEEDED Status: Active Protocol: Document 05/02/22 14:15 AW (Rec: 05/02/22 14:47 AW [id number]) Subjective Physical Therapy Visit Type Type Treatment Note Visit Start Time 14:01 Visit Stop Time 14:15 Total Visit Minutes 14 Number of MEDICINE WORKER Visits 0 Physical Therapy Visit Comments Patient Comments Pt preparing for discharge later today but has concerns about continued bowel movement urgency. M4 PT-IP Mobility and Gait Start: 04/30/22 12:49 Freq: NEEDED Status: Active Protocol: Document 05/02/22 14:15 AW (Rec: 05/02/22 14:47 AW [id number]) PT-Bed Mobility Assessment Supine to Sit Supine to Sit Standby Assistance Sit to Supine Sit to Supine Standby Assistance PT-Transfer Assessment Sit to and From Stand Sit to and from Stand Standby Assistance,Use of Upper Extremities Equipment Transfer Assistive Device Gait Belt,Front Wheeled Walker Orthotic/Prosthetic Devices or Brace: No Transfers Transfer Destination Bed Transfer Technique ambulated Transfer Ability Level of Assist Standby Assistance,Use of Upper Extremities Comments Mobility Comments Pt was lying in bed as PT arrived. She sat up EOB, stood , and walked in room with FWW before returning to bed. She needed no more than SBA. Gait Assessment Gait Gait Assistance Required: Standby Assistance Distance (Feet) 30 Assistive Devices Assistive Device Gait Belt,Front Wheeled Walker Gait Deviations General Gait Pattern Decreased Stride Length, Decreased Feet Clearance,Step- to Gait Factors Limiting Gait Function Factors Limiting Gait Function Decreased Activity Tolerance, Decreased Strength,Limited Range of Motion,Poor Balance, Poor Safety Awareness, Respiratory Distress Comments Gait Comments PT sized FWW for pt who agrees to take one home. PT-Balance Assessment Sitting Balance and Reactions Static Sitting Balance Ability Normal Dynamic Sitting Balance Ability Good Standing Balance and Reactions Static Standing Balance Ability Good Dynamic Standing Balance Ability Fair Device Used FWW M5 PT-IP Objective Assessments Start: 04/30/22 12:49 Freq: NEEDED Status: Active Protocol: Document 04/30/22 11:15 AB (Rec: 04/30/22 12:58 AB [email or web address]) Orientation Orientation/Cognition Level of Alertness Alert Orientation Name,Situation Language Function Ability No Deficits Noted Safety Awareness Decreased Safety Awareness Memory Description No Deficits Noted Gross Range of Motion Lower Extremity ROM Assessment Within Functional Limits Strength Lower Extremity Strength Hip 4-/5 Knee 4-/5 Coordination Assessment Gross Coordination Gross Coordination WNL Sensation Assessment Sensation Gross Sensation WNL Muscle Tone Muscle Tone WNL Yes M6 PT-IP Treatment Start: 04/30/22 12:49 Freq: NEEDED Status: Active Protocol: Document 05/02/22 14:15 AW (Rec: 05/02/22 14:47 AW [id number]) Physical Therapy Treatment Education Education Provided Safety Equipment Issued Equipment Type and Company FWW from [employer] Other Treatments Other Treatment Performed Continued conversation about using FWW at home for energy conservation and to reduce falls risk. Pt states there is no one who can help her at home. M7 PT-IP Assessment and Plan Start: 04/30/22 12:49 Freq: NEEDED Status: Active Protocol: Document 05/02/22 14:15 AW (Rec: 05/02/22 14:47 AW [id number]) PT Summary Assessment and Plan Potential Rehabilitation Potential Fair Summary Impairments Pain,ROM,Strength,Balance, Coordination,Sensation,Tone, Cognition,Bed Mobility, Transfers,Gait,Activity Tolerance Progress Towards Goals Progressing Toward Goals,Slow Progress due to Activity Tolerance Assessment Summary Pt was up in the room independently earlier in the day. PT checked again this PM and pt expressed concern about going home alone. PT reviewed recommendation for FWW and any available assist at home. Continue to recommend SNF but pt's vaccination status is a barrier. Dispensed FWW for home use and pt will have home health therapies. Goals Bed Mobility Goal Independent Transfer Goal Independent,Front Wheeled Walker Gait Goal Independent,Front Wheel Walker Gait Distance 200 Other Goals improve transfers and ambulation without AD 150 ft SBA up/down 1 step using FWW/ without AD SBA Days to Meet Goals 10 Frequency of Treatment Frequency Of Treatment Once a Day Treatment Plan Physical Therapy Treatment Plan Bed Mobility Training,Transfer Training,Gait Training, Therapeutic Exercise,Balance Retraining,Discharge Planning, Hot or Cold Pack,Neuromuscular Re-ed,Coordination Retraining Other Recommendations and Next Treatment Increase ambulation distance; Focus stair Precautions Other Precautions O2 sat Recommendations To Nursing Amount of Assist Needed Standby Assistance Discharge Recommendations PT Discharge Recommendations Home with Assistance,Home with 24/7 Assist Available,Home Health,Home vs SNF Equipment Needed for Home Before FWW (dispensed) Discharge Transportation Needs at Discharge Private Vehicle,Wheelchair/ Cabulance
[2022-05-02 14:20] VITALS: BP 143/66; PULSE 74; RESP 16; TEMP 36.6; O2SAT 97
== END 2022-05-02 18:50 | disposition home health service (06) | DRG 291 ==
LOC: ED 20:51 → AC 04-29 01:26
PROVIDERS: Emergency Medicine; Internal Medicine; Admitting Provider Nurse Practitioner Family; Emergency Provider Emergency Medicine; Family Provider Physician Assistant Medical; PCP Physician Assistant Medical; Referring Provider Emergency Medicine; Visit Provider Nurse Practitioner Family
DX: I13.0 Hypertensive heart and chronic kidney disease with heart failure and stage 1 through stage 4 chronic kidney disease, or unspecified chronic kidney disease (principal); I50.31 Acute diastolic (congestive) heart failure; N17.9 Acute kidney failure, unspecified; A04.72 Enterocolitis due to Clostridium difficile, not specified as recurrent; N18.9 Chronic kidney disease, unspecified; E11.22 Type 2 diabetes mellitus with diabetic chronic kidney disease; E78.5 Hyperlipidemia, unspecified; E03.9 Hypothyroidism, unspecified; Z79.4 Long term (current) use of insulin; Z66 Do not resuscitate; Z20.822 Contact with and (suspected) exposure to COVID-19
CPT/HCPCS: 0241U; 36415; 71046; 80048; 80053; 81003; 81015; 82550; 82962; 83036; 83605; 83735; 83880; 84443; 84484; 85025; 85379; 85610; 85730; 86140; 87040; 87077; 87086; 87150; 87186; 87205; 87324; 87493; 93005; 93306; 93970; 96374; 97162; 97166; 97530; 97535; 99285; J1644; J1815; J1940; J2405

== ENCOUNTER 2022-09-07 18:52 | Inpatient (IN) | payer MEDICARE, OTHER, SELFPAY ==
[2022-04-28 21:12] VITALS: BMI 37.5
[2022-09-07] VITALS (14 sets, daily range): BP systolic 137–163; BP diastolic 63–73; PULSE 61–65; RESP 18–28; TEMP 36.2; O2SAT 87–95; BMI 36.8
--- NOTE | 2022-09-07 19:26 | DI.RAD.S_ITS ---
PROCEDURE: XR CHEST 1V INDICATIONS: chest pain TECHNIQUE: One view of the chest was acquired. COMPARISON: [facility], CR, XR CHEST 2V, 04/28/2022, 16:02. FINDINGS: Surgical changes and devices: There is an electronic device projecting over the left hemithorax. Lungs and pleura: There are medial right infrahilar opacities consistent with consolidation or atelectasis. Mild pulmonary vascular prominence demonstrated suggestive of mild pulmonary edema. There is mild blunting of the costophrenic angle suggestive of small pleural effusions. No pneumothorax. Mediastinum: Mediastinal contours are unchanged. Heart size is enlarged. Bones and chest wall: No suspicious bony lesions. Overlying soft tissues appear unremarkable. IMPRESSION: 1. Medial right infrahilar atelectasis or consolidation. 2. Mild pulmonary edema. 3. Mild blunting of the costophrenic angle suggestive of small pleural effusions. Dictated by: Michael Snow M.D. on 09/07/2022 at 20:41 Approved by: Michael Snow M.D. on 09/07/2022 at 20:42
[2022-09-07 19:48] LABS: Add Manual Diff / Slide Review NO; Basophils Absolute Auto 100 /uL (0-100); Basophils Percent Auto 0.8 % (0-2); Eosinophils Absolute Auto 500 /uL (0-450); Eosinophils Percent Auto 4.6 % (2-4); Hematocrit 29.1 % (36-46); Hemoglobin 9.5 g/dL (12.0-16.0); Lymphocytes Absolute Auto 1600 /uL (1100-4500); Lymphocytes Percent Auto 14.5 % (25-40); Mean Corpuscular HGB Conc 32.6 % (30-36); Mean Corpuscular Hemoglobin 27.6 PG (26-34); Mean Corpuscular Volume 84.7 fL (80-100); Monocytes Absolute Auto 700 /uL (0-900); Monocytes Percent Auto 6.4 % (3-14); Neutrophils Absolute Auto 8000 /uL (1500-7000); Neutrophils Percent Auto 73.7 % (50-75); Platelet Count 284 X10^3/uL (150-400); Red Blood Cell Count 3.44 X10^6/uL (4.0-5.2); Red Cell Distribution Width 15.2 % (11.6-14.8); White Blood Cell Count 10.8 X10^3/uL (4.5-11.0)
[2022-09-07 19:58] LABS: INR 1.1 (0.9-1.3); Prothrombin Time 12.3 SECONDS (10.1-12.7)
[2022-09-07 20:01] LABS: PTT Partial Thromboplastin Tim 30 SECONDS (26-36)
[2022-09-07 20:18] LABS: Lactate (Lactic Acid) 0.7 mmol/L (0.7-2.1)
[2022-09-07 20:19] LABS: HEMOLYSIS < 15 (0-50); Potassium 4.9 mmol/L (3.4-5.1)
[2022-09-07 20:20] LABS: Alanine Aminotransferase 19 IU/L (<35); Albumin 3.7 g/dL (3.5-5.0); Albumin Globulin Ratio 1.1 (1.0-2.8); Alkaline Phosphatase 112 U/L (38-126); Aspartate Aminotransferase 22 IU/L (14-36); BUN Creatinine Ratio 23.9 (6-22); Bilirubin Total 0.3 mg/dL (0.2-1.3); Blood Urea Nitrogen 87 mg/dL (7-17); Calcium 8.4 mg/dL (8.4-10.2); Carbon Dioxide 18 mmol/L (22-32); Chloride 109 mmol/L (98-107); Creatine Kinase 73 U/L (30-135); Estimated Glomerular Filt Rate 12 mL/min (>60); Globulin 3.4 g/dL (1.7-4.1); Glucose 95 mg/dL (80-110); Lipase 135 U/L (23-300); Magnesium 2.2 mg/dL (1.6-2.3); Sodium 138 mmol/L (137-145); Total Protein 7.1 g/dL (6.3-8.2)
[2022-09-07 20:31] LABS: NT-proBNP (BNP-Adult 18+) 2020 pg/mL (<450); Troponin I < 0.012 ng/mL (0.01-0.034)
[2022-09-07 21:01] LABS: Adenovirus Not Detected (Not Detect); B. parapertussis Not Detected (Not Detecte); Bordetella pertussis Not Detected (Not Detecte); Chlamydophila pneumoniae Not Detected (Not Detect); Coronavirus 229E Not Detected (Not Detect); Coronavirus HKU1 Not Detected (Not Detect); Coronavirus NL 63 Not Detected (Not Detect); Coronavirus OC43 Not Detected (Not Detect); Human Metapneumovirus Not Detected (Not Detect); Human Rhinovirus/Enterovirus Not Detected (Not Detect); Influenza A Not Detected (Not Detect); Influenza B Not Detected (Not Detect); Mycoplasma pneumoniae Not Detected (Not Detect); Parainfluenza Virus 1 Not Detected (Not Detect); Parainfluenza Virus 2 Not Detected (Not Detect); Parainfluenza Virus 3 Not Detected (Not Detect); Parainfluenza Virus 4 Not Detected (Not Detect); Respiratory Syncytial Virus Not Detected (Not Detect); SARS- CoV-2 Not Detected (Not Detecte)
--- NOTE | 2022-09-07 23:16 | ED.SOB ---
HPI - SOB/Dyspnea General Chief Complaint: Shortness of Breath/Dyspnea Stated Complaint: difficulty breathing, retaining fluid Time Seen by Provider: 09/07/22 22:21 Source: patient Mode of arrival: Ambulatory Limitations: no limitations History of Present Illness HPI Narrative: Patient is a 76-year-old female history of congestive heart failure, chronic kidney disease, diabetes presenting today with increasing shortness of breath. She reports a couple weeks ago she saw her hemodialysis rn, Dr. Palomo, she is taking torsemide 2 in the morning 1 at night for a total 60 mg in the day. Sometime after that she would a syncopal episode her PCP decreased her torsemide thinking that she was dehydrated decreased it to 1 tablet once a day. Then she started having some trouble breathing she saw her picking table worker who increased it to twice a day. She says over the last couple days like her weight is up she is having more shortness breath. Very little exertion causes her to be short of breath. She denies any chest pain. She denies any abdominal pain nausea or vomiting. She is not had any fever or chills. Overall over the past couple of weeks she has received multiple instructions in regards to her diuretic. She is not feeling well currently requiring about 1 L of O2. Previously she was admitted in April for congestive heart failure. Related Data Home Medications Medication Instructions Recorded Confirmed amlodipine 5 mg tablet 5 mg PO DAILY 04/28/22 04/28/22 carvedilol 12.5 mg tablet 12.5 mg PO BID 04/28/22 04/28/22 fluticasone propionate 50 50 mcg intranasal BID 04/28/22 04/28/22 mcg/actuation nasal spray,suspension hydralazine 25 mg tablet 50 mg PO TID 04/28/22 04/28/22 insulin aspart U-100 100 unit/mL See Rx Instructions .Route .COMPLEX 04/28/22 04/28/22 (3 mL) subcutaneous pen (Novolog FlexPen U-100 Insulin aspart) insulin glargine 100 50 unit SUBCUT DAILY 04/28/22 04/28/22 unit-lixisenatide 33 mcg/mL subcutaneous pen (Soliqua 100/33) levothyroxine 75 mcg tablet 75 mcg PO DAILY 04/28/22 04/28/22 rosuvastatin 5 mg tablet 5 mg PO QPM 04/28/22 04/28/22 Previous Rx's Medication Instructions Recorded losartan 25 mg tablet 25 mg PO DAILY #30 tabs 05/02/22 torsemide 20 mg tablet 40 mg PO BID #120 tabs 05/02/22 vancomycin 125 mg capsule 125 mg PO Q6H #28 caps 05/02/22 Allergies Allergy/AdvReac Type Severity Reaction Status Date / Time ciprofloxacin [From Cipro] Allergy Verified 04/28/22 15:39 codeine Allergy Verified 04/28/22 15:39 metformin [From Glucophage] Allergy Verified 04/28/22 15:39 amoxicillin [From Augmentin] AdvReac Diarrhea Verified 04/28/22 15:39 clavulanic acid AdvReac Diarrhea Verified 04/28/22 15:39 [From Augmentin] Review of Systems Review of Systems ROS Unobtainable: All systems reviewed & are unremarkable except as noted in HPI and below Patient History Medical History CKD (chronic kidney disease) stage 4, GFR 15-29 ml/min Diabetes type 2, controlled Essential hypertension Surgical History Hx of hysterectomy Hx of tonsillectomy Family History Mother Congestive heart failure Myocardial infarct Father Congestive heart failure Cardiac arrest Social History household members: none Smoking Status: Never smoker alcohol intake: never Smoking Status: Never smoker Substance Use Type: does not use Exam Initial Vital Signs Initial Vital Signs: Vital Signs Temperature 97.2 F L 09/07/22 19:16 Pulse Rate 62 09/07/22 19:16 Respiratory Rate 24 09/07/22 19:16 Blood Pressure 151/63 H 09/07/22 19:16 Pulse Oximetry 94 09/07/22 19:16 Oxygen Delivery Method Room Air 09/07/22 19:16 GENERAL: Alert pleasant 76-year-old female sitting upright and in no acute distress. HEENT: Head atraumatic,EOMI, pupils reactive, face symmetric, moist mucous membranes CARDIOVASCULAR: Regular rate and rhythm without murmurs, rubs or gallops. RESPIRATORY: Slightly coarse breath sounds, minimal conversational dyspnea ABDOMEN: Soft, nontender. Normoactive bowel sounds all 4 quadrants. No guarding or rebound. EXTREMITIES: Normal range of motion, no clubbing or edema. Neurovascularly intact NEUROLOGICAL: Alert and oriented x4. SKIN: Warm, dry, no laceration, no petechiae, no rashes or lesions. Course Orders Ordered: Acetaminophen (Acetaminophen 325 Mg Tablet) 650 mg PO Q6H PRN PRN Reason: Fever/Mild Pain (1-3) Carvedilol (Carvedilol 12.5 Mg Tablet) 12.5 mg PO BID [facility] Dextrose (Dextrose 50 % In Water 25 Gm/50 Ml Syringe) 25 gm IV PRN PRN PRN Reason: Hypoglycemia Heparin Sodium (Porcine) (Heparin 5,000 Unit/Ml Vial) 5,000 unit SUBCUT BID [facility] Furosemide 80 mg/ Sodium (Chloride) 58 mls @ 116 mls/hr IV Q12H [facility] Last Infusion: 09/08/22 06:51 Dose: 0 mls/hr Documented By: Admin: 09/08/22 06:20 Dose: 116 mls/hr Documented By: YAIR Insulin Glargine (Insulin Glargine 100 Unit/Ml 3ml Pen) 50 unit SUBCUT DAILY [facility] Last Admin: 09/08/22 08:02 Dose: Not Given Documented By: NR Insulin Human Lispro (Insulin Lispro 100 Unit/Ml 3ml Vial) 0 unit SUBCUT ACHS [facility]; Protocol Last Admin: 09/08/22 08:02 Dose: Not Given Documented By: NR Levothyroxine Sodium (Levothyroxine 75 Mcg Tablet) 75 mcg PO 0600 [facility] Last Admin: 09/08/22 06:35 Dose: 75 mcg Documented By: YAIR Ondansetron HCl (Ondansetron 4 Mg/2 Ml Inj) 4 mg IV Q8HR PRN PRN Reason: Nausea And Vomiting Discontinued Medications Furosemide (Furosemide 40 Mg/4 Ml Vial) 40 mg IV NOW ONE Stop: 09/07/22 23:27 Last Admin: 09/07/22 23:51 Dose: 40 mg Documented By: YAIR Non-Formulary Medication (Insulin Glargine-Lixisenatide [Soliqua 100/33]) 50 unit SUBCUT DAILY [facility] Vital Signs Vital signs: Vital Signs - 8 hr 09/07/22 19:16 09/07/22 19:42 09/07/22 19:43 Temperature 97.2 F L Pulse Rate 62 63 Respiratory Rate 24 26 H Blood Pressure 151/63 H 137/73 Pulse Oximetry 94 92 Oxygen Delivery Method Room Air Oxygen Flow Rate 09/07/22 19:43 09/07/22 20:00 09/07/22 20:00 Temperature Pulse Rate 63 61 Respiratory Rate 28 H 22 Blood Pressure 151/67 H Pulse Oximetry 92 92 Oxygen Delivery Method Oxygen Flow Rate 09/07/22 21:20 09/07/22 21:21 09/07/22 20:30 Temperature Pulse Rate 65 Respiratory Rate 20 Blood Pressure Pulse Oximetry 87 L 95 91 Oxygen Delivery Method Room Air Nasal Cannula Oxygen Flow Rate 1 09/07/22 20:31 09/07/22 20:31 09/07/22 21:00 Temperature Pulse Rate 63 Respiratory Rate 22 Blood Pressure 149/69 H 149/67 H Pulse Oximetry 91 Oxygen Delivery Method Oxygen Flow Rate 09/07/22 21:00 09/07/22 21:30 09/07/22 21:30 Temperature Pulse Rate 63 63 Respiratory Rate 18 19 Blood Pressure 145/68 H Pulse Oximetry 92 95 Oxygen Delivery Method Nasal Cannula Oxygen Flow Rate 1 09/07/22 22:00 09/07/22 22:00 09/07/22 22:30 Temperature Pulse Rate 63 Respiratory Rate 20 Blood Pressure 150/70 H 163/73 H Pulse Oximetry 95 Oxygen Delivery Method Oxygen Flow Rate 09/07/22 22:30 09/07/22 23:00 09/07/22 23:00 Temperature Pulse Rate 64 62 Respiratory Rate 21 20 Blood Pressure 157/71 H Pulse Oximetry 94 94 Oxygen Delivery Method Nasal Cannula Oxygen Flow Rate 1 MDM - SOB/Dyspnea Lab Data 09/08/22 05:34 09/08/22 05:34 Labs: Lab Results 09/07/22 09/07/22 09/07/22 Range/Units 19:30 19:30 19:30 WBC 10.8 (4.5-11.0) X10^3/uL RBC 3.44 L (4.0-5.2) X10^6/uL Hgb 9.5 L (12.0-16.0) g/dL Hct 29.1 L (36-46) % MCV 84.7 (80-100) fL MCH 27.6 (26-34) PG MCHC 32.6 (30-36) % RDW 15.2 H (11.6-14.8) % Plt Count 284 (150-400) X10^3/uL Neut % (Auto) 73.7 (50-75) % Lymph % (Auto) 14.5 L (25-40) % [place] % (Auto) 6.4 (3-14) % Eos % (Auto) 4.6 H (2-4) % Baso % (Auto) 0.8 (0-2) % Neut # (Auto) 8000 H (7293-5593) /uL Lymph # (Auto) 1600 (9457-6023) /uL [place] # (Auto) 700 (0-900) /uL Eos # (Auto) 500 H (0-450) /uL Baso # (Auto) 100 (0-100) /uL PT 12.3 (10.1-12.7) SECONDS INR 1.1 (0.9-1.3) APTT 30 (26-36) SECONDS Sodium 138 (137-145) mmol/L Potassium 4.9 (3.4-5.1) mmol/L Chloride 109 H (98-107) mmol/L Carbon Dioxide 18 L (22-32) mmol/L BUN 87 H (7-17) mg/dL Creatinine 3.64 H (0.52-1.04) mg/dL Estimated GFR 12 L (>60) mL/min BUN/Creatinine Ratio 23.9 H (6-22) Glucose 95 (80-110) mg/dL Lactate (0.7-2.1) mmol/L Calcium 8.4 (8.4-10.2) mg/dL Magnesium 2.2 (1.6-2.3) mg/dL Total Bilirubin 0.3 (0.2-1.3) mg/dL AST 22 (14-36) IU/L ALT 19 (<35) IU/L Alkaline Phosphatase 112 (38-126) U/L Total Creatine Kinase 73 (30-135) U/L CK-MB (CK-2) TNP CK-MB (CK-2) Rel Index TNP Troponin I < 0.012 (0.01-0.034) ng/mL NT-Pro-B Natriuret Pep 2020 H (<450) pg/mL Total Protein 7.1 (6.3-8.2) g/dL Albumin 3.7 (3.5-5.0) g/dL Globulin 3.4 (1.7-4.1) g/dL Albumin/Globulin Ratio 1.1 (1.0-2.8) Lipase 135 (23-300) U/L Chlamy pneumoniae PCR (Not Detect) Adenovirus (PCR) (Not Detect) B. pertussis DNA (PCR) (Not Detecte) B.parapertussis DNA PCR (Not Detecte) Coronavirus OC43 (PCR) (Not Detect) Coronavirus HKU1 (PCR) (Not Detect) Coronavirus 229E (PCR) (Not Detect) SARS-CoV-2 (PCR) (Not Detecte) Coronavirus NL63 (PCR) (Not Detect) Human Metapneumovir PCR (Not Detect) Influenza Type A (PCR) (Not Detect) Influenza Type B (PCR) (Not Detect) M. pneumoniae (PCR) (Not Detect) Parainfluenza 1 (PCR) (Not Detect) Parainfluenza 2 (PCR) (Not Detect) Parainfluenza 3 (PCR) (Not Detect) Parainfluenza 4 (PCR) (Not Detect) RSV (PCR) (Not Detect) Entero/Rhino (PCR) (Not Detect) 09/07/22 09/07/22 Range/Units 19:30 20:05 WBC (4.5-11.0) X10^3/uL RBC (4.0-5.2) X10^6/uL Hgb (12.0-16.0) g/dL Hct (36-46) % MCV (80-100) fL MCH (26-34) PG MCHC (30-36) % RDW (11.6-14.8) % Plt Count (150-400) X10^3/uL Neut % (Auto) (50-75) % Lymph % (Auto) (25-40) % [place] % (Auto) (3-14) % Eos % (Auto) (2-4) % Baso % (Auto) (0-2) % Neut # (Auto) (1563-4232) /uL Lymph # (Auto) (4521-6097) /uL [place] # (Auto) (0-900) /uL Eos # (Auto) (0-450) /uL Baso # (Auto) (0-100) /uL PT (10.1-12.7) SECONDS INR (0.9-1.3) APTT (26-36) SECONDS Sodium (137-145) mmol/L Potassium (3.4-5.1) mmol/L Chloride (98-107) mmol/L Carbon Dioxide (22-32) mmol/L BUN (7-17) mg/dL Creatinine (0.52-1.04) mg/dL Estimated GFR (>60) mL/min BUN/Creatinine Ratio (6-22) Glucose (80-110) mg/dL Lactate 0.7 (0.7-2.1) mmol/L Calcium (8.4-10.2) mg/dL Magnesium (1.6-2.3) mg/dL Total Bilirubin (0.2-1.3) mg/dL AST (14-36) IU/L ALT (<35) IU/L Alkaline Phosphatase (38-126) U/L Total Creatine Kinase (30-135) U/L CK-MB (CK-2) CK-MB (CK-2) Rel Index Troponin I (0.01-0.034) ng/mL NT-Pro-B Natriuret Pep (<450) pg/mL Total Protein (6.3-8.2) g/dL Albumin (3.5-5.0) g/dL Globulin (1.7-4.1) g/dL Albumin/Globulin Ratio (1.0-2.8) Lipase (23-300) U/L Chlamy pneumoniae PCR Not detected (Not Detect) Adenovirus (PCR) Not detected (Not Detect) B. pertussis DNA (PCR) Not detected (Not Detecte) B.parapertussis DNA PCR Not detected (Not Detecte) Coronavirus OC43 (PCR) Not detected (Not Detect) Coronavirus HKU1 (PCR) Not detected (Not Detect) Coronavirus 229E (PCR) Not detected (Not Detect) SARS-CoV-2 (PCR) Not detected (Not Detecte) Coronavirus NL63 (PCR) Not detected (Not Detect) Human Metapneumovir PCR Not detected (Not Detect) Influenza Type A (PCR) Not detected (Not Detect) Influenza Type B (PCR) Not detected (Not Detect) M. pneumoniae (PCR) Not detected (Not Detect) Parainfluenza 1 (PCR) Not detected (Not Detect) Parainfluenza 2 (PCR) Not detected (Not Detect) Parainfluenza 3 (PCR) Not detected (Not Detect) Parainfluenza 4 (PCR) Not detected (Not Detect) RSV (PCR) Not detected (Not Detect) Entero/Rhino (PCR) Not detected (Not Detect) Point of Care Testing Glucose POC 77 Imaging Data Chest x-ray: Radiologist's Impression: PROCEDURE:? XR CHEST 1V ? INDICATIONS:? chest pain ? TECHNIQUE:? One view of the chest was acquired.? ? COMPARISON:? [facility], CR, XR CHEST 2V, 04/28/2022, 16:02. ? FINDINGS:? ? Surgical changes and devices:? There is an electronic device projecting over the left hemithorax. ? Lungs and pleura:? There are medial right infrahilar opacities consistent with consolidation or atelectasis.? Mild pulmonary vascular prominence demonstrated suggestive of mild pulmonary edema.? There is mild blunting of the costophrenic angle suggestive of small pleural effusions.? No pneumothorax.? ? Mediastinum:? Mediastinal contours are unchanged.? Heart size is enlarged. ? Bones and chest wall:? No suspicious bony lesions.? Overlying soft tissues appear unremarkable.? ? IMPRESSION:? ? 1. Medial right infrahilar atelectasis or consolidation. ? 2. Mild pulmonary edema. ? 3. Mild blunting of the costophrenic angle suggestive of small pleural effusions.? ? ? Dictated by: Michael Snow M.D. on 09/07/2022 at 20:41 ? ? ECG Data Interpretation: Normal sinus rhythm rate 63 OH interval [address] changes no T-wave inversions similar to previous EKGs [facility] Narrative Medical decision making narrative: Patient 76-year-old female history of hypertension diabetes congestive heart failure chronic kidney disease presents today with shortness of breath. Over the past few weeks she is had variety of adjustments to her diuretic. She now is very dyspneic with minimal exertion requiring with of oxygen. Creatinine is up today 3.64 in April was 2.35 CO2 is 18 BNP is elevated at 2020 previously 1790. Chest x-ray also confirms mild congestion. Concern for congestive heart failure with worsening acute on chronic kidney disease At this time with history of congestive heart failure multiple changes in her diuretic and the above-stated this is likely congestive heart failure. This is unlikely to be pulmonary embolism or acute coronary disease. She is a negative troponin as well. Dr. Bishop accepts patient Discharge Plan Departure Patient Disposition: Admitted As Inpatient Clinical Impression: CHF (congestive heart failure) Admit Date/Time: 09/07/22 23:55 Admit Provider: Aaron Bishop
[2022-09-07] MEDS: FUROSEMIDE 40 MG/4 ML VIAL IV (23:51)
[2022-09-08] VITALS (33 sets, daily range): BP systolic 125–159; BP diastolic 50–72; PULSE 53–66; RESP 16–36; TEMP 36.7–37.1; O2SAT 87–97; BMI 36.8
--- NOTE | 2022-09-08 01:16 | PM.HP.1 ---
History of Present Illness History of Present Illness Date Patient Seen: 09/08/22 Time Patient Seen: 01:30 Chief complaint: difficulty breathing, retaining fluid Narrative: Ms. Robbins is a 76W with PMH CHFpEF, CKD stage 3-4, type 2 DM on insulin, HTN who presents to the hospital with shortness of breath. Approximately 2-3 weeks ago she saw her configuration engineer who noted her kidney function remained stable, and kept her taking 60 torsemide daily. The following day she had a syncopal event, and a few days later went to see her PCP and her dose of torsemide was decreased to 20mg daily. She quickly noted she was retaining fluid and had a follow up appointment with cardiology a few days later who recommended increasing to 40mg torsemide daily. She continued to retain fluid and earlier this week called her senior patrol agent again who recommended increasing to 60mg torsemide daily. She started taking this dose yesterday, but her symptoms did not improve. She noted shortness of breath with minimal exertion and difficulty breathing with lying flat. No fevers/chills, she has a minor nonproductive cough. She is wearing a shelter monitor ordered by her senior patrol agent In the ED workup was done, vitals notable for afebrile, respiratory rate in 20s, o2 in the 80s on room air. She was placed on oxygen. Labs notable for WBC 10.8, hgb 9.5, plts 284. BUN 87, creatinine 3.64. Trop negative. BNP 2020. Lactate 0.7. Chest xray with atelectasis, pulmonary edema and pleural effusions. She was given lasix and admitted for further treatment. Patient History Medical History CKD (chronic kidney disease) stage 4, GFR 15-29 ml/min Diabetes type 2, controlled Essential hypertension Surgical History Hx of hysterectomy Hx of tonsillectomy Family & Social History Family History Mother Congestive heart failure Myocardial infarct Father Congestive heart failure Cardiac arrest Social History: household members none Safety & Behavioral: Feels Safe in Current Yes Environment Been Physically Hurt or No Threatened By a Person Tobacco & Substance use: Smoking Status Never smoker alcohol intake never Substance Use Type does not use Meds Home Medications and Allergies Home Medications Medication Instructions Recorded Confirmed Type amlodipine 5 mg tablet 5 mg PO DAILY 04/28/22 04/28/22 History carvedilol 12.5 mg tablet 12.5 mg PO BID 04/28/22 04/28/22 History fluticasone propionate 50 50 mcg intranasal BID 04/28/22 04/28/22 History mcg/actuation nasal spray,suspension hydralazine 25 mg tablet 50 mg PO TID 04/28/22 04/28/22 History insulin aspart U-100 100 unit/mL See Rx Instructions .Route .COMPLEX 04/28/22 04/28/22 History (3 mL) subcutaneous pen (Novolog FlexPen U-100 Insulin aspart) insulin glargine 100 50 unit SUBCUT DAILY 04/28/22 04/28/22 History unit-lixisenatide 33 mcg/mL subcutaneous pen (Soliqua 100/33) levothyroxine 75 mcg tablet 75 mcg PO DAILY 04/28/22 04/28/22 History rosuvastatin 5 mg tablet 5 mg PO QPM 04/28/22 04/28/22 History losartan 25 mg tablet 25 mg PO DAILY #30 tabs 05/02/22 Rx torsemide 20 mg tablet 40 mg PO BID #120 tabs 05/02/22 Rx vancomycin 125 mg capsule 125 mg PO Q6H #28 caps 05/02/22 Rx Allergies Allergy/AdvReac Type Severity Reaction Status Date / Time ciprofloxacin [From Cipro] Allergy Verified 04/28/22 15:39 codeine Allergy Verified 04/28/22 15:39 metformin [From Glucophage] Allergy Verified 04/28/22 15:39 amoxicillin [From Augmentin] AdvReac Diarrhea Verified 04/28/22 15:39 clavulanic acid AdvReac Diarrhea Verified 04/28/22 15:39 [From Augmentin] Review of Systems Review of Systems Narrative: 14 systems reviewed and negative aside from what is noted in HPI Exam Vital Signs (past 8 hours): - 09/07/22 19:16 09/07/22 19:42 09/07/22 19:43 Temperature 97.2 F L Pulse Rate 62 63 Respiratory Rate 24 26 H Blood Pressure 151/63 H 137/73 Pulse Oximetry 94 92 Oxygen Delivery Method Room Air Oxygen Flow Rate 09/07/22 19:43 09/07/22 20:00 09/07/22 20:00 Temperature Pulse Rate 63 61 Respiratory Rate 28 H 22 Blood Pressure 151/67 H Pulse Oximetry 92 92 Oxygen Delivery Method Oxygen Flow Rate 09/07/22 21:20 09/07/22 21:21 09/07/22 20:30 Temperature Pulse Rate 65 Respiratory Rate 20 Blood Pressure Pulse Oximetry 87 L 95 91 Oxygen Delivery Method Room Air Nasal Cannula Oxygen Flow Rate 1 09/07/22 20:31 09/07/22 20:31 09/07/22 21:00 Temperature Pulse Rate 63 Respiratory Rate 22 Blood Pressure 149/69 H 149/67 H Pulse Oximetry 91 Oxygen Delivery Method Oxygen Flow Rate 09/07/22 21:00 09/07/22 21:30 09/07/22 21:30 Temperature Pulse Rate 63 63 Respiratory Rate 18 19 Blood Pressure 145/68 H Pulse Oximetry 92 95 Oxygen Delivery Method Nasal Cannula Oxygen Flow Rate 1 09/07/22 22:00 09/07/22 22:00 09/07/22 22:30 Temperature Pulse Rate 63 Respiratory Rate 20 Blood Pressure 150/70 H 163/73 H Pulse Oximetry 95 Oxygen Delivery Method Oxygen Flow Rate 09/07/22 22:30 09/07/22 23:00 09/07/22 23:00 Temperature Pulse Rate 64 62 Respiratory Rate 21 20 Blood Pressure 157/71 H Pulse Oximetry 94 94 Oxygen Delivery Method Nasal Cannula Oxygen Flow Rate 1 Oxygen Delivery Method Nasal Cannula Oxygen Flow Rate 1 Narrative Exam Narrative: GEN: in respiratory distress, difficulty speaking full sentences HEENT: moist mucous membranes, PERRL NECK: trachea midline, no JVD PULM: crackles bilaterally CV: regular rate and rhythm, no murmurs ABD: soft, nontender, nondistended, no organomegaly EXT: warm and well perfused, 1+ pitting edema NEURO: awake, alert, oriented, no focal deficits Objective Labs 09/07/22 19:30 09/07/22 19:30 Labs: Laboratory Results - last 24 hr 09/07/22 09/07/22 09/07/22 19:30 19:30 19:30 WBC 10.8 RBC 3.44 L Hgb 9.5 L Hct 29.1 L MCV 84.7 MCH 27.6 MCHC 32.6 RDW 15.2 H Plt Count 284 Neut % (Auto) 73.7 Lymph % (Auto) 14.5 L [place] % (Auto) 6.4 Eos % (Auto) 4.6 H Baso % (Auto) 0.8 Neut # (Auto) 8000 H Lymph # (Auto) 1600 [place] # (Auto) 700 Eos # (Auto) 500 H Baso # (Auto) 100 PT 12.3 INR 1.1 APTT 30 Sodium 138 Potassium 4.9 Chloride 109 H Carbon Dioxide 18 L BUN 87 H Creatinine 3.64 H Estimated GFR 12 L BUN/Creatinine Ratio 23.9 H Glucose 95 Lactate Calcium 8.4 Magnesium 2.2 Total Bilirubin 0.3 AST 22 ALT 19 Alkaline Phosphatase 112 Total Creatine Kinase 73 CK-MB (CK-2) TNP CK-MB (CK-2) Rel Index TNP Troponin I < 0.012 NT-Pro-B Natriuret Pep 2020 H Total Protein 7.1 Albumin 3.7 Globulin 3.4 Albumin/Globulin Ratio 1.1 Lipase 135 Chlamy pneumoniae PCR Adenovirus (PCR) B. pertussis DNA (PCR) B.parapertussis DNA PCR Coronavirus OC43 (PCR) Coronavirus HKU1 (PCR) Coronavirus 229E (PCR) SARS-CoV-2 (PCR) Coronavirus NL63 (PCR) Human Metapneumovir PCR Influenza Type A (PCR) Influenza Type B (PCR) M. pneumoniae (PCR) Parainfluenza 1 (PCR) Parainfluenza 2 (PCR) Parainfluenza 3 (PCR) Parainfluenza 4 (PCR) RSV (PCR) Entero/Rhino (PCR) 09/07/22 09/07/22 19:30 20:05 WBC RBC Hgb Hct MCV MCH MCHC RDW Plt Count Neut % (Auto) Lymph % (Auto) [place] % (Auto) Eos % (Auto) Baso % (Auto) Neut # (Auto) Lymph # (Auto) [place] # (Auto) Eos # (Auto) Baso # (Auto) PT INR APTT Sodium Potassium Chloride Carbon Dioxide BUN Creatinine Estimated GFR BUN/Creatinine Ratio Glucose Lactate 0.7 Calcium Magnesium Total Bilirubin AST ALT Alkaline Phosphatase Total Creatine Kinase CK-MB (CK-2) CK-MB (CK-2) Rel Index Troponin I NT-Pro-B Natriuret Pep Total Protein Albumin Globulin Albumin/Globulin Ratio Lipase Chlamy pneumoniae PCR Not detected Adenovirus (PCR) Not detected B. pertussis DNA (PCR) Not detected B.parapertussis DNA PCR Not detected Coronavirus OC43 (PCR) Not detected Coronavirus HKU1 (PCR) Not detected Coronavirus 229E (PCR) Not detected SARS-CoV-2 (PCR) Not detected Coronavirus NL63 (PCR) Not detected Human Metapneumovir PCR Not detected Influenza Type A (PCR) Not detected Influenza Type B (PCR) Not detected M. pneumoniae (PCR) Not detected Parainfluenza 1 (PCR) Not detected Parainfluenza 2 (PCR) Not detected Parainfluenza 3 (PCR) Not detected Parainfluenza 4 (PCR) Not detected RSV (PCR) Not detected Entero/Rhino (PCR) Not detected Assessment & Plan Assessment & Plan narrative: 1. Acute hypoxemic respiratory failure secondary to acute diastolic CHF exacerbation and pulmonary edema -sats in the 80s on room air, requiring oxygen -chest xray shows pulmonary edema and pleural effusions, BNP elevated, consistent with acute CHF exacerbation -patient thinks she is approximately 12 pounds over her normal weight, per admit is 97.5kg -etiology is likely reducing torsemide dose -therefore no indication for repeat ECHO currently -ordered for 80 IV lasix BID -ordere low salt diet, fluid restriction, check daily weights, monitor I and Os 2. MAYO on CKD stage 3-4 -creatinine on admission 3.64 -baseline appears approximately 2.3-2.6 -suspect MAYO secondary to fluid overload and may improve with diuresis -treat fluid overload as above -check creatinine daily -if not improving, will need imaging and urine electrolyte studies 3. Hypertension -hold losartan 4. Hyperlipidemia -continue statin 5. Anemia -chronic, appears at baseline 6. Type 2 Diabetes on insulin -continue on home insulin and sliding scale I have discussed the plan with the patient. I have discussed plan of care with ED physician and bedside nurse. I have reviewed the labs, chest xray, and EKG. CODE: DNR/DNI Proxy: Svetlana Pierce, daughter Time Spent With Patient Critical Care time: I spent a total of [] minutes of critical care time on this patient's care today; this time is exclusive of procedural time. Quality MIPS - Meds 'Current medications' to include all prescriptions, [id number] products, herbals, cannabis/cannabidiol products, and vitamin/mineral/dietary (nutritional) supplements. I have utilized all available resources to obtain, update, or review the patient?s current medications. [If Yes, STOP here]: Yes
[2022-09-08] MEDS: FUROSEMIDE 80 MG in SODIUM CHLORIDE 0.9% 50 ML 116 MG IV (06:20)
[2022-09-08 06:28] LABS: Add Manual Diff / Slide Review NO; Basophils Absolute Auto 100 /uL (0-100); Basophils Percent Auto 0.7 % (0-2); Eosinophils Absolute Auto 500 /uL (0-450); Eosinophils Percent Auto 5.1 % (2-4); Hematocrit 26.4 % (36-46); Hemoglobin 8.7 g/dL (12.0-16.0); Lymphocytes Absolute Auto 1600 /uL (1100-4500); Lymphocytes Percent Auto 17.7 % (25-40); Mean Corpuscular HGB Conc 33.2 % (30-36); Mean Corpuscular Hemoglobin 28.2 PG (26-34); Mean Corpuscular Volume 84.9 fL (80-100); Monocytes Absolute Auto 700 /uL (0-900); Monocytes Percent Auto 7.7 % (3-14); Neutrophils Absolute Auto 6200 /uL (1500-7000); Neutrophils Percent Auto 68.8 % (50-75); Platelet Count 244 X10^3/uL (150-400); Red Blood Cell Count 3.11 X10^6/uL (4.0-5.2); Red Cell Distribution Width 15.3 % (11.6-14.8); White Blood Cell Count 8.9 X10^3/uL (4.5-11.0)
[2022-09-08] MEDS: LEVOTHYROXINE 75 MCG TABLET PO (06:35)
[2022-09-08 07:00] LABS: BUN Creatinine Ratio 23.8 (6-22); Blood Urea Nitrogen 87 mg/dL (7-17); Calcium 7.9 mg/dL (8.4-10.2); Carbon Dioxide 19 mmol/L (22-32); Chloride 109 mmol/L (98-107); Estimated Glomerular Filt Rate 12 mL/min (>60); Glucose 91 mg/dL (80-110); HEMOLYSIS < 15 (0-50); Phosphorous 6.4 mg/dL (2.8-4.1); Potassium 4.9 mmol/L (3.4-5.1); Sodium 137 mmol/L (137-145)
[2022-09-08] MEDS: ONDANSETRON 4 MG/2 ML INJ IV (09:36)
[2022-09-08] MEDS: HEPARIN 5,000 UNIT/ML VIAL 5000 UNIT SUBCUT ×2 (10:04→21:11)
--- NOTE | 2022-09-08 10:04 | PC.NURSE ---
medication list updated with patient. hospitalist notified of update and need for more medications. medications not given that patient no longer takes. pharmacy called to bring medications not in pyxis.
[2022-09-08] MEDS: carvediloL 12.5 MG TABLET PO ×2 (11:38→21:14)
[2022-09-08] MEDS: INSULIN LISPRO 100 UNIT/ML 3ML VIAL SUBCUT ×2 (16:55→21:14)
[2022-09-08] MEDS: FUROSEMIDE 80 MG in SODIUM CHLORIDE 0.9% 50 ML 114 MG IV (18:22)
[2022-09-09] VITALS (13 sets, daily range): BP systolic 131–146; BP diastolic 59–70; PULSE 56–66; RESP 16–22; TEMP 36.4–37.1; O2SAT 90–97
[2022-09-09] MEDS: FUROSEMIDE 80 MG in SODIUM CHLORIDE 0.9% 50 ML 116 MG IV (05:37)
[2022-09-09] MEDS: LEVOTHYROXINE 75 MCG TABLET PO (05:37)
[2022-09-09 06:50] LABS: Add Manual Diff / Slide Review NO; Basophils Absolute Auto 100 /uL (0-100); Basophils Percent Auto 1.1 % (0-2); Eosinophils Absolute Auto 500 /uL (0-450); Eosinophils Percent Auto 5.5 % (2-4); Hematocrit 27.6 % (36-46); Hemoglobin 8.8 g/dL (12.0-16.0); Lymphocytes Absolute Auto 1700 /uL (1100-4500); Lymphocytes Percent Auto 17.3 % (25-40); Mean Corpuscular Hemoglobin 27.4 PG (26-34); Mean Corpuscular Volume 85.6 fL (80-100); Monocytes Absolute Auto 900 /uL (0-900); Monocytes Percent Auto 9.5 % (3-14); Neutrophils Absolute Auto 6400 /uL (1500-7000); Neutrophils Percent Auto 66.6 % (50-75); Platelet Count 243 X10^3/uL (150-400); Red Blood Cell Count 3.23 X10^6/uL (4.0-5.2); Red Cell Distribution Width 15.4 % (11.6-14.8); White Blood Cell Count 9.6 X10^3/uL (4.5-11.0)
[2022-09-09 06:57] LABS: BUN Creatinine Ratio 22.9 (6-22); Blood Urea Nitrogen 97 mg/dL (7-17); Calcium 7.6 mg/dL (8.4-10.2); Carbon Dioxide 19 mmol/L (22-32); Chloride 108 mmol/L (98-107); Estimated Glomerular Filt Rate 10 mL/min (>60); Glucose 96 mg/dL (80-110); HEMOLYSIS < 15 (0-50); Sodium 135 mmol/L (137-145)
[2022-09-09 07:01] LABS: Potassium 5.8 mmol/L (3.4-5.1)
--- NOTE | 2022-09-09 07:23 | P.PN_ITS ---
Subjective Subjective Interval history: Still weak and dyspneic. No chest pain, some orthopnea. Has been being prepared for dialysis with upcoming appointments for access. Exam Vital Signs (past 8 hours): - 09/08/22 23:50 09/08/22 23:43 09/09/22 02:00 Temperature 98.8 F Pulse Rate 57 L 55 L Respiratory Rate 18 Blood Pressure 128/50 L Pulse Oximetry 97 96 97 Oxygen Delivery Method Nasal Cannula Nasal Cannula Oxygen Flow Rate 2 2 2 Fraction of Inspired Oxygen 28 09/09/22 04:00 09/09/22 06:00 Temperature 98.7 F Pulse Rate 56 L Respiratory Rate 20 Blood Pressure 131/68 Pulse Oximetry 96 96 Oxygen Delivery Method Nasal Cannula Oxygen Flow Rate 2 2 Fraction of Inspired Oxygen Fraction of Inspired Oxygen 28 SaO2/FiO2 Ratio 342 Oxygen Delivery Method Nasal Cannula Oxygen Flow Rate 2 Narrative Exam Narrative: GEN: in respiratory distress,no difficulty speaking full sentences HEENT: moist mucous membranes, symmetric pupils NECK: trachea midline, no JVD PULM: crackles bilaterally, no wheezing. Normal rate and effort of respiration. CV: regular rate and rhythm, no murmurs ABD: soft, nontender, nondistended, no organomegaly EXT: warm and well perfused, 1+ pitting edema, primarily pedal NEURO: awake, alert, oriented, normal speech Objective Labs 09/09/22 06:35 09/09/22 07:45 Labs: Laboratory Results - last 24 hr 09/09/22 09/09/22 06:35 06:35 WBC 9.6 RBC 3.23 L Hgb 8.8 L Hct 27.6 L MCV 85.6 MCH 27.4 MCHC 32.0 RDW 15.4 H Plt Count 243 Neut % (Auto) 66.6 Lymph % (Auto) 17.3 L Kaufman % (Auto) 9.5 Eos % (Auto) 5.5 H Baso % (Auto) 1.1 Neut # (Auto) 6400 Lymph # (Auto) 1700 [place] # (Auto) 900 Eos # (Auto) 500 H Baso # (Auto) 100 Sodium 135 L Potassium 5.8 H Chloride 108 H Carbon Dioxide 19 L BUN 97 H Creatinine 4.23 H Estimated GFR 10 L BUN/Creatinine Ratio 22.9 H Glucose 96 Calcium 7.6 L PFSH Medical History CKD (chronic kidney disease) stage 4, GFR 15-29 ml/min Diabetes type 2, controlled Essential hypertension Surgical History Hx of hysterectomy Hx of tonsillectomy Family History Mother Congestive heart failure Myocardial infarct Father Congestive heart failure Cardiac arrest Social History household members: none Smoking Status: Never smoker alcohol intake: never Assessment & Plan Assessment & Plan narrative: 1. Acute hypoxemic respiratory failure secondary to acute diastolic CHF exacerbation and pulmonary edema, present on admission and improving -sats in the 80s on room air, requiring oxygen -chest xray shows pulmonary edema and pleural effusions, BNP elevated, consiste nt with acute CHF exacerbation -patient thinks she is approximately 12 pounds over her normal weight, per admit is 97.5kg -etiology is likely reducing torsemide dose -therefore no indication for repeat ECHO currently -initially ordered for 80 IV lasix BID -continue low salt diet, fluid restriction, check daily weights, monitor I and Os 2. MAYO on CKD stage 3-4, present on admission and worse -creatinine on admission 3.64, now at 1.31 -baseline appears approximately 2.3-2.6 -suspect MAYO secondary to fluid overload versus progressive renal failure -treat fluid overload as above -check creatinine daily -if not improving, will need imaging and urine electrolyte studies 3. Hyperkalemia, new on active -decrease rate of diuresis and start Lokelma. Discussed with Nephrology. Dr. Ying. 4. Hypertension resident on admission and stable -hold losartan, continue 5. Hyperlipidemia, present on admission and stable. -continue statin 5. Anemia, present on admission and stable -chronic, appears at baseline 6. Type 2 Diabetes on insulin, present on admission and stable -continue on home insulin and sliding scale I have discussed the plan with the patient. I have discussed plan of care with ED physician and bedside nurse. I have reviewed the labs, chest xray, and EKG. CODE: DNR/DNI Proxy: Svetlana Pierce, daughter Quality VTE Deep Vein Thrombosis/Pulmonary Embolism Present on Admission: No
[2022-09-09 08:21] LABS: BUN Creatinine Ratio 21.3 (6-22); Blood Urea Nitrogen 92 mg/dL (7-17); Calcium 7.6 mg/dL (8.4-10.2); Carbon Dioxide 21 mmol/L (22-32); Chloride 108 mmol/L (98-107); Estimated Glomerular Filt Rate 10 mL/min (>60); Glucose 93 mg/dL (80-110); HEMOLYSIS < 15 (0-50); Sodium 137 mmol/L (137-145)
[2022-09-09 08:24] LABS: Potassium 5.6 mmol/L (3.4-5.1)
[2022-09-09] MEDS: SODIUM ZIRCONIUM CYCLOSILICATE 10 GM POWD.PACK PO ×3 (09:13→21:41)
[2022-09-09] MEDS: HEPARIN 5,000 UNIT/ML VIAL 5000 UNIT SUBCUT ×2 (09:13→21:41)
[2022-09-09] MEDS: INSULIN GLARGINE 100 UNIT/ML 3ML PEN 50 UNIT SUBCUT (09:16)
[2022-09-09] MEDS: carvediloL 12.5 MG TABLET PO ×2 (09:33→21:41)
[2022-09-09] MEDS: INSULIN LISPRO 100 UNIT/ML 3ML VIAL SUBCUT ×2 (12:04→17:00)
--- NOTE | 2022-09-09 12:23 | CM.DANOTE ---
Addendum entered by ABDIAS Collins 09/09/22 13:50: ADD: Hold on HH referral to [facility]; Dr Washington anticipates attempting transfer to [facility] for dialysis if patient accepted and bed available LULY Original Note: Initial DCP Assessment Note Pt is a 76 yo female, resident of [place], presents to the ER w/SOB, retaining fluid, H+P: PMH CHFpEF, CKD stage 3-4, type 2 DM on insulin, HTN -Chest xray with atelectasis, pulmonary edema and pleural effusions. She was given lasix and admitted for further treatment. PCP: Bethany Orozco Payer: [employer] Reviewed chart, met w/patient to introduce self and role. Patient currently living alone in [facility] daughter Kari and JOHN Bello live near and have made themselves available to assist patient as needed Patient has been able to complete most ADLs indp w/o AD but admits to decrease in activity tolerance recently Patient has been thinking about intermediate care planning; adult children have offered to build patient a MIL suite on their property if patient agreeable. Patient states she cannot discharge home to her kid's house at this time r/t their night schedule and having a dog that doesn't get along with hers. Patient anticipates returning home w/family to assist and requests a referral to [facility] Plan: Patient would like to return home w/her family and 14 yo dog, [facility]. PT/OT may be helpful once appropriate to assist in dispo planning ABDIAS Rausch Discharge Planning/Care Management CM Discharge Assessment Start: 09/09/22 12:01 Freq: Status: Active Protocol: Document 09/09/22 12:03 LULY (Rec: 09/09/22 12:23 LULY [id number]) Discharge Planning Assessment Assigned Clerk [employer] ABDIAS Mayorga DPOA/Assigned Designee Name Kari Mota , daughter Advance Directives? No History Provided By Patient Prior Living Arrangements House Household Members none Type of transportation used prior to Drives own vehicle admit Independent with ADL's Yes: States has been feeling weak recently Is patient alert and oriented? Yes Needs Assistance With Meal Prep,Home Chores / Shopping Patient/Family Preference Home with Home Health Comment Requests [facility] Barriers to Discharge No Comment Anticipate home w/family and [facility] - New order vs Resumption order Discharge Plan Home with Home Health Transportation Arrangement Daughter POV Referrals Initiated Home Health SNF/HH Preference Patient had [facility] after admission here in April 2022 and would like their service again Has Agency SNF been contacted No Whiteboard Updated in Patient Room with Yes name and ext. # of Clerk [employer]
--- NOTE | 2022-09-09 13:58 | DIET.CONS2 ---
Dietary Inpatient Consultation Note Admission Date: 09/07/2022 23:55 Pt with elevated renal labs, eGFR 10, Cr 4.31, K+ 5.6, Phosphorus 6.4. Changed pt to Renal diet restricting protein, potassium, phosphorus until transfers for dialysis. Pt reports being diabetic, will take care with carb levels as well. Unit Host and kitchen notified. Pt may benefit from phosphate binders with meals. Diet: 09/08/22 Breakfast Fluid Restriction Diet Diet Modifications: Total fluid amount: 1,500 Amount allotted to patient trays: 0 Fluid in addition to trays: 5124-1545 amount: 1,000 4959-5740 amount: 500 Low Sodium Diet (2gm) Diet Modifications: diabetic diet 09/09/22 Dinner Renal Diet Diet Modifications: Renal Specifics: 2gm Sodium Restriction 2gm Potassium Restrictio Low Protein Limited Phosphorus Nutrition Percent Meal Consumed 100% 09/09/22 09:26 Percent Meal Consumed 75% 09/08/22 13:18 Electronically Signed by: Mckenzie Lopez 09/09/22 13:58 Clinical Dietitian [address] [id number]
[2022-09-09] MEDS: NYSTATIN POWDER 15GM 1 APPLIC TOP (14:50)
[2022-09-09 15:55] LABS: BUN Creatinine Ratio 23.3 (6-22); Blood Urea Nitrogen 100 mg/dL (7-17); Calcium 7.5 mg/dL (8.4-10.2); Carbon Dioxide 18 mmol/L (22-32); Chloride 106 mmol/L (98-107); Estimated Glomerular Filt Rate 10 mL/min (>60); Glucose 142 mg/dL (80-110); HEMOLYSIS 26 (0-50); Sodium 136 mmol/L (137-145)
--- NOTE | 2022-09-09 17:54 | PM.DS.1 ---
History of Present Illness History of Present Illness Date Patient Seen: 09/08/22 Time Patient Seen: 01:30 Chief complaint: difficulty breathing, retaining fluid Narrative: Ms. Robbins is a 76W with PMH CHFpEF, CKD stage 3-4, type 2 DM on insulin, HTN who presents to the hospital with shortness of breath. Approximately 2-3 weeks ago she saw her recovery operator helper who noted her kidney function remained stable, and kept her taking 60 torsemide daily. The following day she had a syncopal event, and a few days later went to see her PCP and her dose of torsemide was decreased to 20mg daily. She quickly noted she was retaining fluid and had a follow up appointment with cardiology a few days later who recommended increasing to 40mg torsemide daily. She continued to retain fluid and earlier this week called her cafeteria or lunchroom checker again who recommended increasing to 60mg torsemide daily. She started taking this dose yesterday, but her symptoms did not improve. She noted shortness of breath with minimal exertion and difficulty breathing with lying flat. No fevers/chills, she has a minor nonproductive cough. She is wearing a panel monitor ordered by her cafeteria or lunchroom checker In the ED workup was done, vitals notable for afebrile, respiratory rate in 20s, o2 in the 80s on room air. She was placed on oxygen. Labs notable for WBC 10.8, hgb 9.5, plts 284. BUN 87, creatinine 3.64. Trop negative. BNP 2020. Lactate 0.7. Chest xray with atelectasis, pulmonary edema and pleural effusions. She was given lasix and admitted for further treatment. Discharge Providers Provider Date of admission: 09/07/22 23:55 Discharge Date: 09/09/22 Primary care physician: Bethany Orozco PA-C Consults: Tele consult with nephrology Discharge provider: Dereck Washington MD Summary Hospital Course Discharge Diagnosis: MAYO in CKD 4, likely ESRD needing dialysis. Acute hypoxemic respiratory failure Hyperkalemia Hypertension Anemia DM 2 Hospital Course: The patient was admitted for presumed acute diastolic heart failure in the context of chronic kidney disease stage 4. The patient was given diuretics and creatinine to over 4 with subsequent hyperkalemia. The patient remained volume overloaded although her hypoxia improved. It was felt that her clinical presentation likely represents a progressive renal failure and need for initiation of dialysis. Situation was discussed with her primary recovery operator helper and then Nephrology at [facility], they both agreed that the patient would benefit from transfer and initiation of dialysis. The patient was in agreement with this plan. She was given Lokelma on the day of transfer to treat hyperkalemia Status at Discharge Cognitive/behavioral status at discharge: oriented Functional status at discharge: uses cane/walker Overall status at discharge: patient is not back to baseline Time Spent with Patient Time spent: Greater than 30 minutes Exam Vital Signs (past 8 hours): - 09/09/22 10:47 09/09/22 10:00 09/09/22 15:35 Temperature 97.5 F L 97.7 F Pulse Rate 58 L Respiratory Rate 16 Blood Pressure 136/70 Pulse Oximetry 93 96 Oxygen Delivery Method Nasal Cannula Oxygen Flow Rate 2 Fraction of Inspired Oxygen 28 SaO2/FiO2 Ratio 342 Oxygen Delivery Method Nasal Cannula Oxygen Flow Rate 2 Narrative Exam Narrative: GEN: in respiratory distress,no difficulty speaking full sentences HEENT: moist mucous membranes, symmetric pupils NECK: trachea midline, no JVD PULM: crackles bilaterally, no wheezing. Normal rate and effort of respiration. CV: regular rate and rhythm, no murmurs ABD: soft, nontender, nondistended, no organomegaly EXT: warm and well perfused, 1+ pitting edema, primarily pedal NEURO: awake, alert, oriented, normal speech Objective Labs 09/09/22 06:35 09/09/22 15:20 Labs: Laboratory Results - last 24 hr 09/09/22 09/09/22 09/09/22 06:35 06:35 07:45 WBC 9.6 RBC 3.23 L Hgb 8.8 L Hct 27.6 L MCV 85.6 MCH 27.4 MCHC 32.0 RDW 15.4 H Plt Count 243 Neut % (Auto) 66.6 Lymph % (Auto) 17.3 L [place]o % (Auto) 9.5 Eos % (Auto) 5.5 H Baso % (Auto) 1.1 Neut # (Auto) 6400 Lymph # (Auto) 1700 [place] # (Auto) 900 Eos # (Auto) 500 H Baso # (Auto) 100 Sodium 135 L 137 Potassium 5.8 H 5.6 H Chloride 108 H 108 H Carbon Dioxide 19 L 21 L BUN 97 H 92 H Creatinine 4.23 H 4.31 H Estimated GFR 10 L 10 L BUN/Creatinine Ratio 22.9 H 21.3 Glucose 96 93 Calcium 7.6 L 7.6 L 09/09/22 15:20 WBC RBC Hgb Hct MCV MCH MCHC RDW Plt Count Neut % (Auto) Lymph % (Auto) [place]royo % (Auto) Eos % (Auto) Baso % (Auto) Neut # (Auto) Lymph # (Auto) [place] # (Auto) Eos # (Auto) Baso # (Auto) Sodium 136 L Potassium 5.0 Chloride 106 Carbon Dioxide 18 L BUN 100 H Creatinine 4.30 H Estimated GFR 10 L BUN/Creatinine Ratio 23.3 H Glucose 142 H Calcium 7.5 L PFSH Medical History CKD (chronic kidney disease) stage 4, GFR 15-29 ml/min Diabetes type 2, controlled Essential hypertension Surgical History Hx of hysterectomy Hx of tonsillectomy Family History Mother Congestive heart failure Myocardial infarct Father Congestive heart failure Cardiac arrest Social History household members: none Smoking Status: Never smoker alcohol intake: never Discharge Assessment & Plan Assessment and Plan Assessment: 1. Acute hypoxemic respiratory failure secondary to acute diastolic CHF exacerbation and pulmonary edema, present on admission and improving -sats in the 80s on room air, requiring oxygen -chest xray shows pulmonary edema and pleural effusions, BNP elevated, consistent with acute CHF exacerbation -patient thinks she is approximately 12 pounds over her normal weight, per admit is 97.5kg -etiology is likely reducing torsemide dose -therefore no indication for repeat ECHO currently -initially ordered for 80 IV lasix BID -continue low salt diet, fluid restriction, check daily weights, monitor I and Os 2. MAYO on CKD stage 3-4, present on admission and worse -creatinine on admission 3.64, now at 1.31 -baseline appears approximately 2.3-2.6 -suspect MAYO secondary to fluid overload versus progressive renal failure -treat fluid overload as above 3. Hyperkalemia, new on active -decrease rate of diuresis and start Lokelma.? Discussed with Nephrology.? Dr. Ying. 4. Hypertension resident on admission and stable -hold losartan, continue 5. Hyperlipidemia, present on admission and stable. -continue statin 5. Anemia, present on admission and stable -chronic, appears at baseline 6. Type 2 Diabetes on insulin, present on admission and stable -continue on home insulin and sliding scale Plan of Treatment: Transfer to [facility] for urgent initiation of dialysis. Discharge Plan Discharge Plan Patient Disposition: [facility] Other facility: [facility] Under care of provider: Dr Lewis (hospitalist) Discharge orders & Medications Prescriptions: No Action carvedilol 12.5 mg tablet 12.5 mg PO BID levothyroxine 75 mcg Tablet 75 mcg PO DAILY insulin aspart U-100 [Novolog FlexPen U-100 Insulin] 100 unit/mL (3 mL) insulin pen See Rx Instructions .ROUTE .COMPLEX Patient Comments: ADMINISTER 12 TO 18 UNITS UNDER THE SKIN BEFORE MEALS Rx Instructions: ADMINISTER 12 TO 18 UNITS UNDER THE SKIN BEFORE MEALS rosuvastatin 5 mg tablet 5 mg PO QPM Patient Comments: TAKE 1 TABLET BY MOUTH EVERY EVENING FOR HIGH CHOLESTEROL Soliqua 100/33 100 unit-33 mcg/mL insulin pen 50 unit SUBCUT DAILY Patient Comments: ADMINISTER 50 UNITS UNDER THE SKIN EVERY DAY torsemide 20 mg tablet 40 mg PO BID Qty: 120 0RF losartan 25 mg tablet 25 mg PO DAILY Qty: 30 0RF Medication counseling provided by Pharmacist: No Follow up/Referrals: Bethany Orozco PA-C [Primary Care Provider] - Discharge Health Status Multidrug resistant organism: No MDRO Diet/Activity/Treatments Diet: Low-protein/Renal Food texture: Regular Discharge Data Primary Care Provider: Bethany Orozco Quality VTE Deep Vein Thrombosis/Pulmonary Embolism Present on Admission: No
[2022-09-09] MEDS: FUROSEMIDE 60 MG in SODIUM CHLORIDE 0.9% 50 ML 116 MG IV (18:00)
[2022-09-10] VITALS (8 sets, daily range): BP systolic 142–151; BP diastolic 54–63; PULSE 62–64; RESP 19–22; TEMP 35.9–36.9; O2SAT 90–96
[2022-09-10 00:07] LABS: BUN Creatinine Ratio 21.4 (6-22); Blood Urea Nitrogen 93 mg/dL (7-17); Calcium 7.4 mg/dL (8.4-10.2); Carbon Dioxide 18 mmol/L (22-32); Chloride 106 mmol/L (98-107); Estimated Glomerular Filt Rate 10 mL/min (>60); Glucose 112 mg/dL (80-110); HEMOLYSIS < 15 (0-50); Potassium 4.5 mmol/L (3.4-5.1); Sodium 136 mmol/L (137-145)
[2022-09-10 05:15] LABS: Add Manual Diff / Slide Review NO; Basophils Absolute Auto 100 /uL (0-100); Basophils Percent Auto 0.8 % (0-2); Eosinophils Absolute Auto 400 /uL (0-450); Eosinophils Percent Auto 4.1 % (2-4); Hematocrit 25.2 % (36-46); Hemoglobin 8.2 g/dL (12.0-16.0); Lymphocytes Absolute Auto 1800 /uL (1100-4500); Mean Corpuscular HGB Conc 32.8 % (30-36); Mean Corpuscular Hemoglobin 27.8 PG (26-34); Mean Corpuscular Volume 84.8 fL (80-100); Monocytes Absolute Auto 800 /uL (0-900); Monocytes Percent Auto 8.8 % (3-14); Neutrophils Absolute Auto 6500 /uL (1500-7000); Neutrophils Percent Auto 67.3 % (50-75); Platelet Count 232 X10^3/uL (150-400); Red Blood Cell Count 2.97 X10^6/uL (4.0-5.2); Red Cell Distribution Width 15.1 % (11.6-14.8); White Blood Cell Count 9.6 X10^3/uL (4.5-11.0)
[2022-09-10 05:26] LABS: Blood Urea Nitrogen 96 mg/dL (7-17); Calcium 7.2 mg/dL (8.4-10.2); Carbon Dioxide 20 mmol/L (22-32); Chloride 107 mmol/L (98-107); Estimated Glomerular Filt Rate 10 mL/min (>60); Glucose 79 mg/dL (80-110); HEMOLYSIS < 15 (0-50); Potassium 4.6 mmol/L (3.4-5.1); Sodium 137 mmol/L (137-145)
[2022-09-10] MEDS: FUROSEMIDE 60 MG in SODIUM CHLORIDE 0.9% 50 ML 116 MG IV (05:59)
[2022-09-10] MEDS: LEVOTHYROXINE 75 MCG TABLET PO (05:59)
--- NOTE | 2022-09-10 10:24 | PM.DS.1 ---
History of Present Illness History of Present Illness Chief complaint: difficulty breathing, retaining fluid Narrative: Ms. Robbins is a 76W with PMH CHFpEF, CKD stage 3-4, type 2 DM on insulin, HTN who presents to the hospital with shortness of breath. Approximately 2-3 weeks ago she saw her data conversion analyst who noted her kidney function remained stable, and kept her taking 60 torsemide daily. The following day she had a syncopal event, and a few days later went to see her PCP and her dose of torsemide was decreased to 20mg daily. She quickly noted she was retaining fluid and had a follow up appointment with cardiology a few days later who recommended increasing to 40mg torsemide daily. She continued to retain fluid and earlier this week called her fuel system maintenance supervisor again who recommended increasing to 60mg torsemide daily. She started taking this dose yesterday, but her symptoms did not improve. She noted shortness of breath with minimal exertion and difficulty breathing with lying flat. No fevers/chills, she has a minor nonproductive cough. She is wearing a registered nurse cardiac ordered by her fuel system maintenance supervisor In the ED workup was done, vitals notable for afebrile, respiratory rate in 20s, o2 in the 80s on room air. She was placed on oxygen. Labs notable for WBC 10.8, hgb 9.5, plts 284. BUN 87, creatinine 3.64. Trop negative. BNP 2020. Lactate 0.7. Chest xray with atelectasis, pulmonary edema and pleural effusions. She was given lasix and admitted for further treatment. Discharge Providers Provider Date of admission: 09/07/22 23:55 Primary care physician: Bethany Orozco PA-C Discharge provider: Dereck Washington MD Exam Vital Signs (past 8 hours): - 09/10/22 04:00 09/10/22 06:00 09/10/22 08:00 Temperature 98.5 F 96.7 F L Pulse Rate 64 62 Respiratory Rate 20 19 Blood Pressure 144/55 H 142/54 H Pulse Oximetry 94 92 96 Oxygen Flow Rate 2 2 Fraction of Inspired Oxygen 28 SaO2/FiO2 Ratio 342 Oxygen Delivery Method Nasal Cannula Oxygen Flow Rate 2 Objective Labs 09/10/22 05:05 09/10/22 05:05 Labs: Laboratory Results - last 24 hr 09/09/22 09/09/22 09/10/22 15:20 23:46 05:05 WBC 9.6 RBC 2.97 L Hgb 8.2 L Hct 25.2 L MCV 84.8 MCH 27.8 MCHC 32.8 RDW 15.1 H Plt Count 232 Neut % (Auto) 67.3 Lymph % (Auto) 19.0 L Glasscock % (Auto) 8.8 Eos % (Auto) 4.1 H Baso % (Auto) 0.8 Neut # (Auto) 6500 Lymph # (Auto) 1800 [place]cock # (Auto) 800 Eos # (Auto) 400 Baso # (Auto) 100 Sodium 136 L 136 L Potassium 5.0 4.5 Chloride 106 106 Carbon Dioxide 18 L 18 L BUN 100 H 93 H Creatinine 4.30 H 4.35 H Estimated GFR 10 L 10 L BUN/Creatinine Ratio 23.3 H 21.4 Glucose 142 H 112 H Calcium 7.5 L 7.4 L 09/10/22 05:05 WBC RBC Hgb Hct MCV MCH MCHC RDW Plt Count Neut % (Auto) Lymph % (Auto) Glasscock % (Auto) Eos % (Auto) Baso % (Auto) Neut # (Auto) Lymph # (Auto) [place]cock # (Auto) Eos # (Auto) Baso # (Auto) Sodium 137 Potassium 4.6 Chloride 107 Carbon Dioxide 20 L BUN 96 H Creatinine 4.37 H Estimated GFR 10 L BUN/Creatinine Ratio 22.0 Glucose 79 L Calcium 7.2 L PFSH Medical History CKD (chronic kidney disease) stage 4, GFR 15-29 ml/min Diabetes type 2, controlled Essential hypertension Surgical History Hx of hysterectomy Hx of tonsillectomy Family History Mother Congestive heart failure Myocardial infarct Father Congestive heart failure Cardiac arrest Social History household members: none Smoking Status: Never smoker alcohol intake: never Discharge Assessment & Plan Assessment and Plan Assessment: 1. Acute hypoxemic respiratory failure secondary to acute diastolic CHF exacerbation and pulmonary edema, present on admission and improving -sats in the 80s on room air, requiring oxygen -chest xray shows pulmonary edema and pleural effusions, BNP elevated, consistent with acute CHF exacerbation -patient thinks she is approximately 12 pounds over her normal weight, per admit is 97.5kg -etiology is likely reducing torsemide dose -therefore no indication for repeat ECHO currently -initially ordered for 80 IV lasix BID -continue low salt diet, fluid restriction, check daily weights, monitor I and Os 2. MAYO on CKD stage 3-4, present on admission and worse -creatinine on admission 3.64, now at 1.31 -baseline appears approximately 2.3-2.6 -suspect MAYO secondary to fluid overload versus progressive renal failure -treat fluid overload as above 3. Hyperkalemia, new on active -decrease rate of diuresis and start Lokelma.? Discussed with Nephrology.? Dr. Ying. 4. Hypertension resident on admission and stable -hold losartan, continue 5. Hyperlipidemia, present on admission and stable. -continue statin 5. Anemia, present on admission and stable -chronic, appears at baseline 6. Type 2 Diabetes on insulin, present on admission and stable -continue on home insulin and sliding scale Plan of Treatment: Transfer to [facility] for urgent initiation of dialysis. Discharge Plan Discharge Plan Patient Disposition: [facility] Other facility: [facility] Under care of provider: Dr Lewis (hospitalist) Discharge orders & Medications Medication counseling provided by Pharmacist: No Discharge Health Status Multidrug resistant organism: No MDRO Diet/Activity/Treatments Diet: Low-protein/Renal Food texture: Regular Discharge Data Primary Care Provider: Bethany Orozco VTE Deep Vein Thrombosis/Pulmonary Embolism Present on Admission: No
--- NOTE | 2022-09-10 10:47 | PM.DS.1 ---
History of Present Illness History of Present Illness Date Patient Seen: 09/10/22 Time Patient Seen: 10:49 Chief complaint: difficulty breathing, retaining fluid Narrative: Ms. Robbins is a 76W with PMH CHFpEF, CKD stage 3-4, type 2 DM on insulin, HTN who presents to the hospital with shortness of breath. Approximately 2-3 weeks ago she saw her telephone service adviser who noted her kidney function remained stable, and kept her taking 60 torsemide daily. The following day she had a syncopal event, and a few days later went to see her PCP and her dose of torsemide was decreased to 20mg daily. She quickly noted she was retaining fluid and had a follow up appointment with cardiology a few days later who recommended increasing to 40mg torsemide daily. She continued to retain fluid and earlier this week called her test engineer nuclear equipment again who recommended increasing to 60mg torsemide daily. She started taking this dose yesterday, but her symptoms did not improve. She noted shortness of breath with minimal exertion and difficulty breathing with lying flat. No fevers/chills, she has a minor nonproductive cough. She is wearing a cleaning team member ordered by her test engineer nuclear equipment In the ED workup was done, vitals notable for afebrile, respiratory rate in 20s, o2 in the 80s on room air. She was placed on oxygen. Labs notable for WBC 10.8, hgb 9.5, plts 284. BUN 87, creatinine 3.64. Trop negative. BNP 2020. Lactate 0.7. Chest xray with atelectasis, pulmonary edema and pleural effusions. She was given lasix and admitted for further treatment. Discharge Providers Provider Date of admission: 09/07/22 23:55 Discharge Date: 09/10/22 Primary care physician: Bethany Orozco PA-C Discharge provider: Dereck Washington MD Summary Hospital Course Discharge Diagnosis: MAYO in CKD 4, likely ESRD needing dialysis. Acute hypoxemic respiratory failure Hyperkalemia Hypertension Anemia DM 2 Hospital Course: The patient was admitted for presumed acute diastolic heart failure in the context of chronic kidney disease stage 4.? The patient was given diuretics and creatinine to over 4 with subsequent hyperkalemia.? The patient remained volume overloaded although her hypoxia improved.? It was felt that her clinical presentation likely represents a progressive renal failure and need for initiation of dialysis.? Situation was discussed with her primary telephone service adviser and then Nephrology at [facility], they both agreed that the patient would benefit from transfer and initiation of dialysis. The patient was in agreement with this plan.? She was given Lokelma on the day of transfer to treat hyperkalemia Status at Discharge Cognitive/behavioral status at discharge: oriented Functional status at discharge: independent ambulation Overall status at discharge: patient is back to baseline Time Spent with Patient Time spent: Greater than 30 minutes Exam Vital Signs (past 8 hours): - 09/10/22 04:00 09/10/22 06:00 09/10/22 08:00 Temperature 98.5 F 96.7 F L Pulse Rate 64 62 Respiratory Rate 20 19 Blood Pressure 144/55 H 142/54 H Pulse Oximetry 94 92 96 Oxygen Flow Rate 2 2 Fraction of Inspired Oxygen 28 SaO2/FiO2 Ratio 342 Oxygen Delivery Method Nasal Cannula Oxygen Flow Rate 2 Narrative Exam Narrative: GEN: in respiratory distress,no difficulty speaking full sentences HEENT: moist mucous membranes, symmetric pupils NECK: trachea midline, no JVD PULM: crackles bilaterally, no wheezing.? Normal rate and effort of respiration. CV: regular rate and rhythm, no murmurs ABD: soft, nontender, nondistended, no organomegaly EXT: warm and well perfused, 1+ pitting edema, primarily pedal NEURO: awake, alert, oriented, normal speech Objective Imaging Chest x-ray: Radiologist's impression: MPRESSION:? ? 1. Medial right infrahilar atelectasis or consolidation. ? 2. Mild pulmonary edema. ? 3. Mild blunting of the costophrenic angle suggestive of small pleural effusions.? Labs 09/10/22 05:05 09/10/22 05:05 Labs: Laboratory Results - last 24 hr 09/09/22 09/09/22 09/10/22 15:20 23:46 05:05 WBC 9.6 RBC 2.97 L Hgb 8.2 L Hct 25.2 L MCV 84.8 MCH 27.8 MCHC 32.8 RDW 15.1 H Plt Count 232 Neut % (Auto) 67.3 Lymph % (Auto) 19.0 L [place] % (Auto) 8.8 Eos % (Auto) 4.1 H Baso % (Auto) 0.8 Neut # (Auto) 6500 Lymph # (Auto) 1800 [place] # (Auto) 800 Eos # (Auto) 400 Baso # (Auto) 100 Sodium 136 L 136 L Potassium 5.0 4.5 Chloride 106 106 Carbon Dioxide 18 L 18 L BUN 100 H 93 H Creatinine 4.30 H 4.35 H Estimated GFR 10 L 10 L BUN/Creatinine Ratio 23.3 H 21.4 Glucose 142 H 112 H Calcium 7.5 L 7.4 L 09/10/22 05:05 WBC RBC Hgb Hct MCV MCH MCHC RDW Plt Count Neut % (Auto) Lymph % (Auto) [place] % (Auto) Eos % (Auto) Baso % (Auto) Neut # (Auto) Lymph # (Auto) [place] # (Auto) Eos # (Auto) Baso # (Auto) Sodium 137 Potassium 4.6 Chloride 107 Carbon Dioxide 20 L BUN 96 H Creatinine 4.37 H Estimated GFR 10 L BUN/Creatinine Ratio 22.0 Glucose 79 L Calcium 7.2 L PFSH Medical History CKD (chronic kidney disease) stage 4, GFR 15-29 ml/min Diabetes type 2, controlled Essential hypertension Surgical History Hx of hysterectomy Hx of tonsillectomy Family History Mother Congestive heart failure Myocardial infarct Father Congestive heart failure Cardiac arrest Social History household members: none Smoking Status: Never smoker alcohol intake: never Discharge Assessment & Plan Assessment and Plan Assessment: 1. Acute hypoxemic respiratory failure secondary to acute diastolic CHF exacerbation and pulmonary edema, present on admission and improving -sats in the 80s on room air, requiring oxygen -chest xray shows pulmonary edema and pleural effusions, BNP elevated, consistent with acute CHF exacerbation -patient thinks she is approximately 12 pounds over her normal weight, per admit is 97.5kg -etiology is likely reducing torsemide dose -therefore no indication for repeat ECHO currently -initially ordered for 80 IV lasix BID -continue low salt diet, fluid restriction, check daily weights, monitor I and Os 2. MAYO on CKD stage 3-4, present on admission and worse -creatinine on admission 3.64, now at 1.31 -baseline appears approximately 2.3-2.6 -suspect MAYO secondary to fluid overload versus progressive renal failure -treat fluid overload as above 3. Hyperkalemia, new on active -decrease rate of diuresis and start Lokelma.? Discussed with Nephrology.? Dr. Ying. 4. Hypertension resident on admission and stable -hold losartan, continue 5. Hyperlipidemia, present on admission and stable. -continue statin 5. Anemia, present on admission and stable -chronic, appears at baseline 6. Type 2 Diabetes on insulin, present on admission and stable -continue on home insulin and sliding scale Plan of Treatment: Transfer to [facility] for urgent initiation of dialysis. Plan of Treatment: Transfer to [facility] for urgent initiation of dialysis. Discharge Plan Discharge Plan Patient Disposition: [facility] Other facility: [facility] Under care of provider: Dr Howard (hospitalist), Dr Ndiaye (telephone service adviser) Discharge orders & Medications Medication counseling provided by Pharmacist: No Discharge Health Status Multidrug resistant organism: No MDRO Diet/Activity/Treatments Diet: Low-protein/Renal Food texture: Regular Activity: As tolerated Discharge Data Primary Care Provider: Bethany Orozco VTE Deep Vein Thrombosis/Pulmonary Embolism Present on Admission: No
[2022-09-10] MEDS: HEPARIN 5,000 UNIT/ML VIAL 5000 UNIT SUBCUT (11:00)
[2022-09-10] MEDS: SODIUM ZIRCONIUM CYCLOSILICATE 10 GM POWD.PACK PO (11:00)
[2022-09-10] MEDS: carvediloL 12.5 MG TABLET PO (11:01)
[2022-09-10 15:12] LABS: COVID19 -Nasal RAPID Negative (Negative)
--- NOTE | 2022-09-10 15:36 | PC.NURSE ---
Pt is A&Ox4. VSS, afebrile. She is on 2 LNC this a.m. but on RA at rest 90% 02 saturation. With activity noted mild SOB. Edema to BLE's +1. She call appropriately for SBA to bathroom. She is placed on a renal diet and reports many new changes revolving diet. She has a good appetite although a.m. BG 95, after breakfast she is ordered to be NPO following transfer to [facility] for dialysis. AM lantus held. Noon BG 91. She denies pain or distress. Report to RN at [facility] called to Cristal Newsome RN. EMS arrived at 1400 to transport patient via stretcher. Polst for DNR signed with MD and patient at bedside per protocol. She verbalizes understanding with plan of care and is transported via stretcher for transfer. PIV in place in R AC 20 gauge, and pt placed on 2 LNC for activity./ resp support.
== END 2022-09-10 14:10 | disposition short-term general hospital (02) | DRG 291 ==
LOC: ED 23:48 → AC 23:56
PROVIDERS: Hospitalist; Student in an Organized Health Care Education/Training Program; Admitting Provider Internal Medicine; Emergency Provider Emergency Medicine; Family Provider Physician Assistant Medical; PCP Physician Assistant Medical; Referring Provider Emergency Medicine; Visit Provider Internal Medicine
DX: I13.2 Hypertensive heart and chronic kidney disease with heart failure and with stage 5 chronic kidney disease, or end stage renal disease (principal); I50.31 Acute diastolic (congestive) heart failure; J96.01 Acute respiratory failure with hypoxia; N18.6 End stage renal disease; N17.9 Acute kidney failure, unspecified; E78.5 Hyperlipidemia, unspecified; E11.22 Type 2 diabetes mellitus with diabetic chronic kidney disease; E87.5 Hyperkalemia; Z20.822 Contact with and (suspected) exposure to COVID-19; Z79.4 Long term (current) use of insulin
CPT/HCPCS: 36415; 71045; 80048; 80053; 82550; 82962; 83605; 83690; 83735; 83880; 84100; 84484; 85025; 85610; 85730; 87633; 87635; 93005; 93010; 94760; 96365; 96375; 99285; C9803; J1644; J1815; J1940; J2405

== ENCOUNTER 2025-01-28 23:46 | Emergency (ER) | payer MEDICARE, OTHER, SELFPAY ==
[2022-09-08 11:43] VITALS: BMI 36.8
[2025-01-28 23:52] VITALS: BP 160/75; PULSE 66; RESP 97; TEMP 36.6; O2SAT 97; BMI 31.7
--- NOTE | 2025-01-29 00:15 | EKG_ITS ---
[address] [address] Test Date: 2025-01-29 Pat Name: Merline Robbins Department: Room: Gender: Female Meat Cutter: ROSALIE : 1945 Requested By: Order Number: [id number] Reading MD: Dereck Washington Measurements Intervals Jeffrey Rate: 64 P: 45 AR: 332 QRS: -4 QRSD: 96 T: 40 QT: 414 QTc: 427 Interpretive Statements Sinus rhythm with 1st degree AV block Inferior infarct , age undetermined Possible Anterior infarct , age undetermined Electronically Signed On 02-02-2025 7:55:19 PDT by Dereck Washington
--- NOTE | 2025-01-29 00:15 | DI.RAD.S_ITS ---
PROCEDURE: XR CHEST 1V INDICATIONS: Shortness of breath TECHNIQUE: One view of the chest was acquired. COMPARISON: [facility], CR, XR CHEST 2 VIEWS, 07/04/2024, 13:14. [facility], CR, XR CHEST 1V, 09/07/2022, 19:47. [facility], CR, XR CHEST 2V, 04/28/2022, 16:02. FINDINGS: Surgical changes and devices: Right tunneled catheter in stable position. Lungs and pleura: Lungs are clear. No pleural effusions or pneumothorax. Mediastinum: Mediastinal contours appear normal. Heart size is enlarged. Bones and chest wall: No suspicious bony lesions. Overlying soft tissues appear unremarkable. IMPRESSION: No acute cardiopulmonary abnormality is seen. Dictated by: Deuce Jensen M.D. on 01/29/2025 at 0:56 Approved by: Deuce Jensen M.D. on 01/29/2025 at 0:57
--- NOTE | 2025-01-29 00:47 | PC.NURSE ---
Imaging at bedside
[2025-01-29 00:58] LABS: Add Manual Diff / Slide Review NO; Hematocrit 32.9 % (36-46); Hemoglobin 11.0 g/dL (12.0-16.0); Lymphocytes Absolute Auto 1300 /uL (1100-4500); Mean Corpuscular HGB Conc 33.3 % (30-36); Mean Corpuscular Hemoglobin 29.5 PG (26-34); Mean Corpuscular Volume 88.5 fL (80-100); Platelet Count 151 X10^3/uL (150-400)
[2025-01-29 01:06] LABS: INR 1.0 (0.9-1.3); Prothrombin Time 11.0 SECONDS (9.4-12.5)
[2025-01-29 01:10] LABS: Alanine Aminotransferase 16 IU/L (<35); Albumin 4.0 g/dL (3.5-5.0); Albumin Globulin Ratio 1.3 (1.0-2.8); Alkaline Phosphatase 131 U/L (38-126); Blood Urea Nitrogen 46 mg/dL (7-17); Calcium 8.5 mg/dL (8.4-10.2); Carbon Dioxide 24 mmol/L (22-32); Chloride 98 mmol/L (98-107); Estimated Glomerular Filt Rate 8 mL/min (>60); Globulin 3.2 g/dL (1.7-4.1); Glucose 155 mg/dL (70-99); HEMOLYSIS < 15 (0-50); Lactate (Lactic Acid) 0.9 mmol/L (0.7-2.1); Potassium 3.9 mmol/L (3.4-5.1); Sodium 132 mmol/L (137-145); Total Protein 7.2 g/dL (6.3-8.2)
[2025-01-29 01:22] LABS: NT-proBNP (BNP-Adult 18+) 5290 pg/mL (<450); Troponin I 0.015 ng/mL (0.01-0.034)
--- NOTE | 2025-01-29 01:44 | ED_ITS ---
HPI - SOB/Dyspnea General Chief Complaint: Shortness of Breath/Dyspnea Stated Complaint: sob Time Seen by Provider: 01/29/25 00:46 Source: patient and EMS Mode of arrival: EMS Limitations: no limitations History of Present Illness HPI Narrative: 79-year-old female with history of end-stage renal disease, hemodialysis dependent since August 2022, has a left arm fistula that is deep and difficult for centrifugal chiller technician access, ongoing right anterior chest hemodialysis catheter access, has Tuesday hemodialysis sessions, made her full run of hemodialysis yesterday Tuesday as planned, has not missed any recent runs, does not believe any the runs have been shortened or altered from usual regimen. She does make some urine, and takes torsemide, no missed doses or change in doses. She feels short of breath today. Denies cough fevers chills. Denies chest pain. Denies lower extremity edema. She has in recent weeks felt that she has had some dyspnea with usual activity exertion. She is not aware of any changes in her dialysate, or the duration of her 3 hour 15 minute dialysis sessions. Followed by jewelry estimator Dr. Ying of [facility], receiving her hemodialysis sessions in the dialysis center [place]. Complaint: shortness of breath Related Data Home Medications ?Medication ?Instructions ?Recorded ?Confirmed carvedilol 12.5 mg tablet 12.5 mg PO BID 04/28/2208/25 insulin aspart U-100 100 unit/mL See Rx Instructions . Route .COMPLEX 04/28/22 09/08/22 (3 mL) subcutaneous pen (Novolog FlexPen U-100 Insulin aspart) insulin glargine 100 50 unit SUBCUT DAILY 2 09/08/22 unit-lixisenatide 33 mcg/mL subcutaneous pen (Soliqua 100/33) levothyroxine 75 mcg tablet 75 mcg PO DAILY 04/28/22 0 09/08/22 rosuvastatin 5 mg tablet 5 mg PO QPM 04/28/22 3 Previous Rx's ?Medication ?Instructions ?Recorded losartan 25 mg tablet 25 mg PO DAILY #30 tabs 12/16 torsemide 20 mg tablet 40 mg (2 x 20 mg) PO BID #12 0 tabs 05/02/22 Allergies Allergy/AdvReac Type Severity Reaction Status Date / Time ciprofloxacin (From Cipro) Allergy Mild Verified 01/28/25 23:52 codeine Allergy Verified 01/28/25 23:52 metformin (From Glucophage) Allergy Verified 01/28/25 23:52 amoxicillin (From Augmentin) AdvReac Mild Diarrhea Verified 01/28/25 23:52 clavulanic acid (From AdvReac Mild Diarrhea Verified 01/28/25 23:52 Augmentin) Patient History Medical History CKD (chronic kidney disease) stage 4, GFR 15-29 ml/min Diabetes type 2, controlled Essential hypertension Surgical History Hx of hysterectomy Hx of tonsillectomy Family History Mother Congestive heart failure Myocardial infarct Father Congestive heart failure Cardiac arrest Social History household members: none alcohol intake: never Exam Narrative Exam Narrative: GENERAL: Well-developed patient, in mild distress. HEAD: Atraumatic. Normocephalic. EYES: Pupils equal round and reactive. Extraocular motions intact. No scleral icterus. No injection or drainage. ENT: Nose without bleeding, purulent drainage. Throat without erythema, tonsillar hypertrophy or exudate. Airway patent. NECK: Trachea midline. Non tender CARDIOVASCULAR: Regular rate and rhythm without murmurs, gallops, or rubs. RESPIRATORY: Clear to auscultation. Breath sounds equal bilaterally. No wheezes, rales, or rhonchi. Speaks in full sentences. Right hemodialysis catheter site, no redness or tenderness or crepitance or discharge. GASTROINTESTINAL: Abdomen soft, non-tender, nondistended. EXTREMITIES: No edema or joint tenderness. Left antecubital AV fistula with palpable thrill, no redness or erythema or tenderness. Good cap refill distal fingers. No lower extremity edema. BACK: Nontender without deformity or crepitance. No flank tenderness. NEURO: AOx3. Motor functions grossly nonfocal. SKIN: No rash or erythema of visible areas Initial Vital Signs Initial Vital Signs: Vital Signs Temperature 97.9 F 01/28/25 23:52 Pulse Rate 66 01/28/25 23:52 Respiratory Rate 97 H 01/28/25 23:52 Blood Pressure 160/75 H 01/28/25 23:52 Pulse Oximetry 97 01/28/25 23:52 Oxygen Delivery Method Room Air 01/28/25 23:52 Course Orders Ordered: ED Orders 01/29/25 00:15 XR chest 1V Stat EKG-12 Lead Stat Measure peak expiratory flow STAT RT Consult Eval and Treat STAT 01/29/25 00:46 Complete Blood Count AUTO DIFF Stat Comprehensive Metabolic Panel Stat Lactate (Lactic Acid) Stat NT-proBNP (BNP-Adult 18+) Stat Prothrombin Time INR Stat Troponin I Stat Discontinued Medications Furosemide (Furosemide 40 Mg/4 Ml Vial) 40 mg IV NOW ONE Stop: 01/29/25 01:44 Last Admin: 01/29/25 02:21 Dose: 40 mg Documented By: DOV Furosemide 80 mg/ Sodium (Chloride) 58 mls @ 116 mls/hr IV NOW ONE Stop: 01/29/25 04:02 Last Admin: 01/29/25 04:41 Dose: 116 mls/hr Documented By: MARIALUISA Vital Signs Vital signs: Vital Signs - 8 hr 01/28/25 23:52 Temperature 97.9 F Pulse Rate 66 Respiratory Rate 97 H Blood Pressure 160/75 H Pulse Oximetry 97 Oxygen Delivery Method Room Air MDM - SOB/Dyspnea Lab Data Attestation: I reviewed the patient's lab results. Lab results narrative: White blood cell count 87142, hemoglobin 11, platelets 151,000. Glucose 155. BUN 46 with creatinine 5.05 elevated, serum CO2 24, sodium 132, potassium 3.9. Alkaline phosphatase 135 slight elevation, other liver functions normal. Troponin 0.015 measurable but low. BNP 5290, elevated compared to prior values available in chart. 01/29/25 00:46 01/29/25 00:46 Labs: Lab Results 01/29/25 Range/Units 00:46 WBC 13.7 H (4.5-11.0) X10^3/uL RBC 3.72 L (4.0-5.2) X10^6/uL Hgb 11.0 L (12.0-16.0) g/dL Hct 32.9 L (36-46) % MCV 88.5 (80-100) fL MCH 29.5 (26-34) PG MCHC 33.3 (30-36) % RDW 16.0 H (11.6-14.8) % Plt Count 151 (150-400) X10^3/uL Neut % (Auto) 78.2 H (50-75) % Lymph % (Auto) 9.7 L (25-40) % [place] % (Auto) 8.1 (3-14) % Eos % (Auto) 3.1 (2-4) % Baso % (Auto) 0.9 (0-2) % Neut # (Auto) 96814 H (6274-0308) /uL Lymph # (Auto) 1300 (6412-6339) /uL [place] # (Auto) 1100 H (0-900) /uL Eos # (Auto) 400 (0-450) /uL Baso # (Auto) 100 (0-100) /uL PT 11.0 (9.4-12.5) SECONDS INR 1.0 (0.9-1.3) Sodium 132 L (137-145) mmol/L Potassium 3.9 (3.4-5.1) mmol/L Chloride 98 (98-107) mmol/L Carbon Dioxide 24 (22-32) mmol/L BUN 46 H (7-17) mg/dL Creatinine 5.05 H (0.52-1.04) mg/dL Estimated GFR 8 L (>60) mL/min BUN/Creatinine Ratio 9.1 (6-22) Glucose 155 H (70-99) mg/dL Lactate 0.9 (0.7-2.1) mmol/L Calcium 8.5 (8.4-10.2) mg/dL Total Bilirubin 0.3 (0.2-1.3) mg/dL AST 21 (14-36) IU/L ALT 16 (<35) IU/L Alkaline Phosphatase 131 H (38-126) U/L Troponin I 0.015 (0.01-0.034) ng/mL NT-Pro-B Natriuret Pep 5290 H (<450) pg/mL Total Protein 7.2 (6.3-8.2) g/dL Albumin 4.0 (3.5-5.0) g/dL Globulin 3.2 (1.7-4.1) g/dL Albumin/Globulin Ratio 1.3 (1.0-2.8) Imaging Data Chest x-ray: Radiologist's Impression: [address] [place] [address] XRay Report Signed Patient: Merline Robbins MR#: [id number] : 1945 Acct:[id number] Age/Sex: 79 / F Date of Service: 01/29/25 Loc: ED Accession Number: [id number] Procedure: XR chest 1V Ordering Provider: Juan Clarke MD PROCEDURE: XR CHEST 1V INDICATIONS: Shortness of breath TECHNIQUE: One view of the chest was acquired. COMPARISON: [facility], CR, XR CHEST 2 VIEWS, 07/04/2024, 13:14. [facility], CR, XR CHEST 1V, 09/07/2022, 19:47. [facility], CR, XR CHEST 2V, 04/28/2022, 16:02. FINDINGS: Surgical changes and devices: Right tunneled catheter in stable position. Lungs and pleura: Lungs are clear. No pleural effusions or pneumothorax. Mediastinum: Mediastinal contours appear normal. Heart size is enlarged. Bones and chest wall: No suspicious bony lesions. Overlying soft tissues appear unremarkable. IMPRESSION: No acute cardiopulmonary abnormality is seen. Dictated by: Deuce Jensen M.D. on 01/29/2025 at 0:56 Approved by: Deuce Jensen M.D. on 01/29/2025 at 0:57 ECG Data Attestation: I personally reviewed and interpreted this ECG as follows: Interpretation: 0017, normal sinus rhythm with first-degree AV block, rate 64. No obvious ST segment elevation or depression changes. FL 332, QRS 96, QTC 427. [facility] Narrative Medical decision making narrative: Some shortness of breath with hemodialysis Tuesday, full session yesterday completed, usual duration, unremarkable, full run. Feels more short of breath today. Afebrile, sirs screen negative. Speaks in full sentences. No bibasilar crackles, no lower extremity edema. Chest x-ray no acute changes. See radiology report. No mention of fluid overload changes. Lab data: White blood cell count 74040, hemoglobin 11, platelets 151,000. Glucose 155. BUN 46 with creatinine 5.05 elevated, serum CO2 24, sodium 132, potassium 3.9. Alkaline phosphatase 135 slight elevation, other liver functions normal. Troponin 0.015 measurable but low. BNP 5290, elevated compared to prior values available in chart. 0345, no urine output with initial Lasix 40 mg dose, we will give repeat Lasix 80 mg. We will reach out to her Nephrology cross cover service, followed by Dr. Ying Nephrology at [facility]. 0415, case discussed with Dr Hernandez [facility] who was covering for Dr. Ying, reassured that patient seems to be not having oxygen requirement, but has some shortness of breath after last dialysis, we will proceed with or target dry weight with subsequent hemodialysis Tuesday upcoming, he will relay message to Dr. Ying. Discharged home, follow up for Tuesday hemodialysis as planned, likely new lower dry weight target. Return precautions discussed. Discharge Plan Departure Patient Disposition: Home Clinical Impression: Shortness of breath, End stage renal disease, Dependence on hemodialysis Activity Restrictions/Additional Instructions: Shortness of breath, dialysis dependent end-stage renal disease, last hemodialysis session on Tuesday for full session. No fluid overload changes today by clinical examination, nor by chest x-ray reading. You do make some urine and take torsemide diuretic. We did try IV Lasix diuresis with some urine output effect. Case was discussed with your jewelry estimator cross cover Dr. Hernandez at [facility], who would relay message to your regular jewelry estimator Dr. Ying, likely having lower dry weight target with your hemodialysis sessions, if this helps address your shortness of breath symptoms. Discharged home. Follow up with Tuesday hemodialysis as scheduled. Continue with your chronic medications as prescribed for now. Return earlier to this/nearest emergency department for any change worsening symptoms or any concerns prior. Prescriptions: No Action carvedilol 12.5 mg tablet 12.5 mg PO BID levothyroxine 75 mcg Tablet 75 mcg PO DAILY insulin aspart U-100 [Novolog FlexPen U-100 Insulin] 100 unit/mL (3 mL) insulin pen See Rx Instructions .ROUTE .COMPLEX Patient Comments: ADMINISTER 12 TO 18 UNITS UNDER THE SKIN BEFORE MEALS Rx Instructions: ADMINISTER 12 TO 18 UNITS UNDER THE SKIN BEFORE MEALS rosuvastatin 5 mg tablet 5 mg PO QPM Patient Comments: TAKE 1 TABLET BY MOUTH EVERY EVENING FOR HIGH CHOLESTEROL Soliqua 100/33 100 unit-33 mcg/mL insulin pen 50 unit SUBCUT DAILY Patient Comments: ADMINISTER 50 UNITS UNDER THE SKIN EVERY DAY torsemide 20 mg tablet 40 mg PO BID Qty: 120 0RF losartan 25 mg tablet 25 mg PO DAILY Qty: 30 0RF Referrals: Bethany Orozco PA-C [Primary Care Provider, Medical] Stand Alone Forms: Patient Portal/API
[2025-01-29] MEDS: FUROSEMIDE 40 MG/4 ML VIAL IV (02:21)
--- NOTE | 2025-01-29 04:17 | PC.NURSE ---
Ambulatory to restroom without assistance. Pt with notable increased WOB upon return.
[2025-01-29] MEDS: FUROSEMIDE 80 MG in SODIUM CHLORIDE 0.9% 50 ML 116 MG IV (04:41)
--- NOTE | 2025-01-29 05:49 | PC.NURSE ---
Addendum entered by Kira Lorenz CNA 01/29/25 06:41: DAINEL note: 0640 called Kari, she answered, she is on her way. Addendum entered by Kira Lorenz CNA 01/29/25 06:07: DANIEL note: Attempted to call Kari to pick her mother up. Left a message. Original Note: COMPUTING SYSTEMS MECHANIC note: Attempting to call patient's daughter, Kari, regarding picking up her mother for discharge. Called at 0440 and 0525 with no response. Left messages to notify that patient is ready to be picked up and to call us back. 0550 no response.
[2025-01-29 07:19] VITALS: BP 157/84; PULSE 68; RESP 20; O2SAT 95
== END 2025-01-29 07:21 | disposition home or self-care (01) ==
PROVIDERS: Emergency Provider Emergency Medicine; Family Provider Physician Assistant Medical; PCP Physician Assistant Medical
DX: R06.02 Shortness of breath (principal); N18.6 End stage renal disease; Z99.2 Dependence on renal dialysis
CPT/HCPCS: 71045; 80053; 83605; 83880; 84484; 85025; 85610; 93005; 96365; 96375; 99283; 99284; J1938

== ENCOUNTER 2025-03-26 12:13 | Emergency (ER) | payer MEDICARE, OTHER, SELFPAY ==
[2022-09-08 11:43] VITALS: BMI 36.8
[2025-03-26 12:21] VITALS: BP 174/73; PULSE 65; RESP 13; TEMP 36.2; O2SAT 96; BMI 32.5
--- NOTE | 2025-03-26 12:41 | EKG_ITS ---
[address] [address] Test Date: 2025-03-26 Pat Name: Merline Robbins Department: Room: Gender: Female Supervisor Costuming: SHOAIB : 1945 Requested By: Order Number: [id number] Reading MD: Dereck Washington Measurements Intervals [place] Rate: 67 P: 38 PA: 356 QRS: -7 QRSD: 88 T: 24 QT: 410 QTc: 433 Interpretive Statements Sinus rhythm with 1st degree AV block Anterior infarct , age undetermined Electronically Signed On 03-27-2025 8:15:06 PDT by Dereck Washington
[2025-03-26 13:18] LABS: Add Manual Diff / Slide Review NO; Hematocrit 28.4 % (36-46); Hemoglobin 9.3 g/dL (12.0-16.0); Lymphocytes Absolute Auto 1700 /uL (1100-4500); Mean Corpuscular HGB Conc 32.9 % (30-36); Mean Corpuscular Hemoglobin 28.1 PG (26-34); Mean Corpuscular Volume 85.5 fL (80-100); Platelet Count 201 X10^3/uL (150-400)
[2025-03-26 13:27] LABS: INR 1.0 (0.9-1.3); Prothrombin Time 11.8 SECONDS (9.4-12.5)
[2025-03-26 13:30] LABS: PTT Partial Thromboplastin Tim 28 SECONDS (25.1-36.5)
[2025-03-26 13:32] LABS: Alanine Aminotransferase 16 IU/L (<35); Albumin 4.1 g/dL (3.5-5.0); Albumin Globulin Ratio 1.2 (1.0-2.8); Alkaline Phosphatase 99 U/L (38-126); Blood Urea Nitrogen 38 mg/dL (7-17); Calcium 8.3 mg/dL (8.4-10.2); Carbon Dioxide 25 mmol/L (22-32); Chloride 100 mmol/L (98-107); Estimated Glomerular Filt Rate 7 mL/min (>60); Globulin 3.4 g/dL (1.7-4.1); Glucose 135 mg/dL (70-99); HEMOLYSIS < 15 (0-50); Potassium 4.3 mmol/L (3.4-5.1); Sodium 137 mmol/L (137-145); Total Protein 7.5 g/dL (6.3-8.2)
--- NOTE | 2025-03-26 13:50 | ED.GIBLEED ---
HPI - GI Bleed General Chief complaint: GI Bleed Stated complaint: Internal hemorrhoids issue Time Seen by Provider: 03/26/25 12:18 Source: patient Mode of arrival: Ambulatory History of Present Illness HPI Narrative: Patient here for painful bowel movement with rectal bleeding this morning. Patient is not on any stool softeners. Patient is on dialysis. Patient states she had a procedure over 20 years ago to help hemorrhoids and has been doing well until recently. She has not had any recent colonoscopies. No dizziness no syncope. Related Data Home Medications ?Medication ?Instructions ?Recorded ?Confirmed carvedilol 12.5 mg tablet 12.5 mg PO BID 04/28/22 09/08/22 insulin aspart U-100 100 unit/mL See Rx Instructions .Route .COMPLEX 04/28/22 09/08/22 (3 mL) subcutaneous pen (Novolog FlexPen U-100 Insulin aspart) insulin glargine 100 50 unit SUBCUT DAILY 04/28/22 09/08/22 unit-lixisenatide 33 mcg/mL subcutaneous pen (Soliqua 100/33) levothyroxine 75 mcg tablet 75 mcg PO DAILY 04/28/22 09/08/22 rosuvastatin 5 mg tablet 5 mg PO QPM 04/28/22 09/08/22 Previous Rx's ?Medication ?Instructions ?Recorded losartan 25 mg tablet 25 mg PO DAILY #30 tabs 05/02/22 torsemide 20 mg tablet 40 mg (2 x 20 mg) PO BID #120 tabs 05/02/22 docusate sodium 100 mg capsule 100 mg PO BID #30 caps 03/26/25 (Colace) hydrocortisone acetate 25 mg 25 mg NH DAILY #12 ea 03/26/25 rectal suppository (Anusol-HC) witch gilson 50 % topical pads 1 pad topical 4-6XD PRN rectal 03/26/25 (Tucks (witch gilson)) discomfort #40 ea Allergies Allergy/AdvReac Type Severity Reaction Status Date / Time ciprofloxacin (From Cipro) Allergy Mild Verified 03/26/25 12:21 codeine Allergy Verified 03/26/25 12:21 amoxicillin (From Augmentin) AdvReac Mild Diarrhea Verified 03/26/25 12:21 clavulanic acid (From AdvReac Mild Diarrhea Verified 03/26/25 12:21 Augmentin) metformin (From Glucophage) AdvReac light Verified 03/26/25 12:21 headed, GI Upset Review of Systems Review of Systems Narrative: GENERAL: Negative chills, fatigue, malaise, fever, sweats. HEENT: Negative sinus pain, ear pain, sore throat RESPIRATORY: Negative dyspnea, cough CARDIOVASCULAR: Negative chest pain, palpitations GASTROINTESTINAL: Negative vomiting, nausea, abdominal pain, positive rectal pain : Negative dysuria, frequency, hematuria MUSCULOSKELETAL: Negative muscle or bony pain SKIN: Negative rash, skin lesions NEUROLOGIC: Negative weakness, numbness ROS Unobtainable: All systems reviewed & are unremarkable except as noted in HPI and below Patient History Medical History CKD (chronic kidney disease) stage 4, GFR 15-29 ml/min Diabetes type 2, controlled Essential hypertension Surgical History Hx of hysterectomy Hx of tonsillectomy Family History Mother Congestive heart failure Myocardial infarct Father Congestive heart failure Cardiac arrest Social History household members: none Smoking Status: Unknown if ever smoked alcohol intake: never Smoking Status: Unknown if ever smoked Exam Narrative Exam Narrative: GENERAL: in no distress, not toxic not dyspneic HEAD: Normocephalic. EYES: Pupils equal round pink conjunctiva ENT: Mucous membranes moist. NECK: Trachea midline. CARDIOVASCULAR: Regular rate and rhythm RESPIRATORY: Clear to auscultation. Breath sounds equal bilaterally. No wheezes, rales, or rhonchi. 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 They are 3 external hemorrhoids tender to touch, no active bleeding. Digital rectal exam tender but no blood on glove. No hematochezia present. No dark black stool on glove. EXTREMITIES: No gross deformities. BACK: No flank tenderness. NEURO: AOx4. Clear speech SKIN: Warm and dry PSYCH: Not anxious, is cooperative Initial Vital Signs Initial Vital Signs: Vital Signs Temperature 97.2 F L 03/26/25 12:21 Pulse Rate 65 03/26/25 12:21 Respiratory Rate 13 03/26/25 12:21 Blood Pressure 174/73 H 03/26/25 12:21 Pulse Oximetry 96 03/26/25 12:21 Oxygen Delivery Method Room Air 03/26/25 12:21 Course Orders Ordered: ED Orders 03/26/25 12:41 EKG-12 Lead Routine 03/26/25 13:05 Complete Blood Count AUTO DIFF Stat Comprehensive Metabolic Panel Stat PTT Partial Thromboplastin Rogelio Stat Prothrombin Time INR Stat Type and Screen Stat Discontinued Medications Ondansetron HCl (Ondansetron 4 Mg/2 Ml Inj) 4 mg IV NOW PRN PRN Reason: Nausea And Vomiting Ondansetron HCl (Ondansetron 4 Mg Odt) 4 mg PO NOW PRN PRN Reason: Nausea And Vomiting Vital Signs Vital signs: Vital Signs - 8 hr 03/26/25 12:21 03/26/25 14:06 Temperature 97.2 F L Pulse Rate 65 67 Respiratory Rate 13 Blood Pressure 174/73 H 153/68 H Pulse Oximetry 96 97 Oxygen Delivery Method Room Air Room Air MDM - GI Bleed Lab Data 03/26/25 13:05 03/26/25 13:05 Labs: Lab Results 03/26/25 Range/Units 13:05 WBC 12.3 H (4.5-11.0) X10^3/uL RBC 3.32 L (4.0-5.2) X10^6/uL Hgb 9.3 L (12.0-16.0) g/dL Hct 28.4 L (36-46) % MCV 85.5 (80-100) fL MCH 28.1 (26-34) PG MCHC 32.9 (30-36) % RDW 17.7 H (11.6-14.8) % Plt Count 201 (150-400) X10^3/uL Neut % (Auto) 75.4 H (50-75) % Lymph % (Auto) 13.6 L (25-40) % Cassia % (Auto) 7.2 (3-14) % Eos % (Auto) 3.1 (2-4) % Baso % (Auto) 0.7 (0-2) % Neut # (Auto) 9300 H (3887-3043) /uL Lymph # (Auto) 1700 (8733-8903) /uL Cassia # (Auto) 900 (0-900) /uL Eos # (Auto) 400 (0-450) /uL Baso # (Auto) 100 (0-100) /uL PT 11.8 (9.4-12.5) SECONDS INR 1.0 (0.9-1.3) APTT 28 (25.1-36.5) SECONDS Sodium 137 (137-145) mmol/L Potassium 4.3 (3.4-5.1) mmol/L Chloride 100 (98-107) mmol/L Carbon Dioxide 25 (22-32) mmol/L BUN 38 H (7-17) mg/dL Creatinine 6.06 H (0.52-1.04) mg/dL Estimated GFR 7 L (>60) mL/min BUN/Creatinine Ratio 6.3 (6-22) Glucose 135 H (70-99) mg/dL Calcium 8.3 L (8.4-10.2) mg/dL Total Bilirubin 0.3 (0.2-1.3) mg/dL AST 21 (14-36) IU/L ALT 16 (<35) IU/L Alkaline Phosphatase 99 (38-126) U/L Total Protein 7.5 (6.3-8.2) g/dL Albumin 4.1 (3.5-5.0) g/dL Globulin 3.4 (1.7-4.1) g/dL Albumin/Globulin Ratio 1.2 (1.0-2.8) Blood Type O Negative Antibody Screen Negative [facility] Narrative Medical decision making narrative: Patient here for painful bowel movement with rectal bleeding this morning. Patient is not on any stool softeners. Patient is on dialysis. Patient states she had a procedure over 20 years ago to help hemorrhoids and has been doing well until recently. She has not had any recent colonoscopies. No dizziness no syncope. MDM After history and exam, CBC CMP, exam is reassuring. No imaging indicated at this time. Patient is not on any blood thinners. Differential considered: Includes but not limited to internal hemorrhoid external hemorrhoid rectal/anal fissure Medical records reviewed: No recent visit for this complaint Lab Test results independently reviewed as above. Pertinent findings: WBC 12.3 hemoglobin 9.3 and baseline, hematocrit 28 at baseline, platelets 201 INR 1.0 BUN 6 creatinine 7 at baseline, history of dialysis. Independently reviewed EKG sinus rhythm rate 67 Re-evaluations: 1:58 p.m.. Reviewed with patient exam findings and laboratory studies. Treatment plan reviewed with her and she agrees. Return precautions reviewed. General surgery referral provided for outpatient colonoscopy Discussion: Appropriate for discharge home. Exam is reassuring. Return precautions reviewed patient. Patient hemodynamically stable. No active bleeding. Diagnosis: External hemorrhoids Discharge Plan Departure Patient Disposition: Home Clinical Impression: Hemorrhoids Qualifiers: Hemorrhoid type: unspecified Qualified Code(s): K64.9 - Unspecified hemorrhoids Instructions: DI for Hemorrhoids Activity Restrictions/Additional Instructions: Prescriptions still for hemorrhoids has been sent to your pharmacy to [facility] today. Please see your family doctor or call provided general surgery office, Dr. France, to schedule colonoscopy. Return if worse if any questions or concerns. Your laboratory studies are reassuring. You are being treated for external hemorrhoids Prescriptions: New docusate sodium [Colace] 100 mg capsule 100 mg PO BID Qty: 30 0RF hydrocortisone acetate [Anusol-HC] 25 mg suppository 25 mg NH DAILY Qty: 12 0RF Tucks (witch gilson) 50 % pads, medicated 1 pad topical 4-6XD PRN (Reason: rectal discomfort) Qty: 40 0RF No Action carvedilol 12.5 mg tablet 12.5 mg PO BID levothyroxine 75 mcg Tablet 75 mcg PO DAILY insulin aspart U-100 [Novolog FlexPen U-100 Insulin] 100 unit/mL (3 mL) insulin pen See Rx Instructions .ROUTE .COMPLEX Patient Comments: ADMINISTER 12 TO 18 UNITS UNDER THE SKIN BEFORE MEALS Rx Instructions: ADMINISTER 12 TO 18 UNITS UNDER THE SKIN BEFORE MEALS rosuvastatin 5 mg tablet 5 mg PO QPM Patient Comments: TAKE 1 TABLET BY MOUTH EVERY EVENING FOR HIGH CHOLESTEROL Soliqua 100/33 100 unit-33 mcg/mL insulin pen 50 unit SUBCUT DAILY Patient Comments: ADMINISTER 50 UNITS UNDER THE SKIN EVERY DAY torsemide 20 mg tablet 40 mg PO BID Qty: 120 0RF losartan 25 mg tablet 25 mg PO DAILY Qty: 30 0RF Referrals: Alcides France MD [Physician, General Surgery] Bethany Orozco PA-C [Primary Care Provider, Medical] Stand Alone Forms: Patient Portal/API
[2025-03-26 14:06] VITALS: BP 153/68; PULSE 67; O2SAT 97
== END 2025-03-26 14:06 | disposition home or self-care (01) ==
PROVIDERS: Emergency Provider Emergency Medicine; Family Provider Physician Assistant Medical; PCP Physician Assistant Medical
DX: K64.9 Unspecified hemorrhoids (principal); Z99.2 Dependence on renal dialysis
CPT/HCPCS: 36415; 80053; 85025; 85610; 85730; 86850; 86900; 86901; 93005; 99283; 99284